=== PATIENT | male | born 1950 | race Caucasian/White ===

== ENCOUNTER 2016-09-16 18:05 | Inpatient (IN) | payer OTHER, MEDICAID ==
--- NOTE | 2016-09-16 18:19 | EDPHY ---
H & P HPI/ROS: CHIEF COMPLAINT: Abdominal pain HISTORY OF PRESENT ILLNESS: Patient is a 65-year-old male with multiple medical problems who presents to the emergency department with right mid abdominal pain since this morning. Patient has previously had bladder cancer with resection. He has urostomy in place. He has noticed increased mucosal distension at the urostomy site. He also has pain at that location. His pain is moderate to severe. He states he also has worsening shortness of breath since this morning. No cough. No fevers or chills. Patient denies chest pain. REVIEW OF SYSTEMS: My complete review of systems is negative except as mentioned in the HPI. Past Medical/Surgical History: Includes bladder cancer, status post resection, urinary tract infection, diverticulosis, hypertension, hepatic steatosis, hiatal hernia, atrial fibrillation, hydronephrosis Past surgical history: Includes nephrostomy, cystoprostatectomy with ileal conduit Social history: The patient is a [facility] resident Smoking Status: Current some day smoker Physical Exam: Vitals noted GENERAL: mild acute distress, alert. HEENT: Eyes normal to inspection, normal pharynx, no signs of dehydration. NECK: No thyromegaly, no lymphadenopathy, supple. RESPIRATORY: mild increased work of breathing. No rales, rhonchi or wheezing. CVS: Regular rate and rhythm, no rubs, murmurs, or gallops. ABDOMEN: Soft, nondistended, no organomegaly. Patient has of the right urostomy bag in place. This has yellow discharge. There is pink mucosa noted. Mild tenderness to palpation surrounding the bag. No visible cellulitis BACK: Normal to inspection, no CVA tenderness. SKIN: Normal color, no rash, warm, dry. No pallor. EXTREMITIES: No pedal edema, no calf tenderness, no Homans sign or cords, no joint swelling. NEURO/PSYCH: Alert and oriented x3, normal mood and affect, normal motor sensory exam. No obvious cranial nerve deficit. Constitutional: Initial Vital Signs Temperature (C) 36.6 C 09/16/16 18:13 Heart Rate 80 09/16/16 18:13 Respiratory Rate 16 09/16/16 18:13 Blood Pressure 117/98 H 09/16/16 18:13 O2 Sat (%) 94 09/16/16 18:13 O2 Delivery Mode Nasal Cannula O2 (L/minute) 2 Allergies/Adverse Reactions: Mauricio's Formula 44D Allergy (Uncoded 04/02/16 17:52) "throat swells up" Home Medications: Medication Instructions Recorded NK [No Known Home Meds] 09/16/16 Medical Decision Making - Diagnostics EKG Interpretation: Sinus rhythm at 81. Normal axis. Normal intervals. No ST or T-wave abnormality. Imaging Results: Imaging Impressions Abdomen CT 09/16/16 18:21 Impression: 1. Right hydronephrosis of a patient status post cystectomy and prostatectomy. A left ureteral stent is in place. 2. Herniation of loops of small bowel adjacent to the right lower quadrant ostomy. 3. Rather extensive diverticulosis without diverticulitis. 4. See above report for additional findings. Results called and discussed with HALIE OSMAN M.D. on 09/16/2016 at 20:44 Chest X-Ray 09/16/16 18:21 Impression: 1. Borderline cardiac enlargement without pulmonary edema. 2. Basilar opacities probably a combination of atelectasis and scarring. ED Course/Re-evaluation: I met EMS on arrival in took report from the office workforce planner. In the emergency department I discussed possible etiologies with the patient. Laboratory studies and CT imaging were ordered. Patient was given fentanyl 50 mcg IV and Zofran 4 mg IV. IV the patient's laboratory studies. White count was normal. He was mildly anemic with hematocrit of 36. His BUN was [address] of the abdomen pelvis: Please refer to the dictated report. The patient has a small bowel herniation through his ileostomy site. The urostomy appears to be intact. Please refer the dictated report by Dr. Obie Wilson. Chest x-ray: Bilateral basilar atelectasis and scarring. No focal infiltrates. Please refer the dictated report by Dr. Wilson. I discussed the results with the patient. I answered all his questions. Patient was also noted to have significant white cells in his urine. I am aware he has urostomy but he will be treated with Rocephin while he is being evaluated for his hernia. General surgery, Dr. Garrett was paged. Hospital service was paged. [phone]: I discussed the case with Dr. Garrett. He will evaluate the patient for the CT findings and herniation. Differential Diagnosis: My differential includes but is not limited to urostomy malfunction, small- bowel obstruction, perforation, hernia, abscess, pneumonia, pneumothorax, ACS, acute PR - Data Points Laboratory Results: Laboratory Results 09/16/16 18:15 09/16/16 18:15 09/16/16 09/16/16 09/16/16 19:30 18:15 18:15 WBC RBC Hgb Hct MCV MCH MCHC RDW Plt Count MPV Neut % (Auto) Lymph % (Auto) Merrick % (Auto) Eos % (Auto) Baso % (Auto) Nucleat RBC Rel Count Absolute Neuts (auto) Absolute Lymphs (auto) Absolute Monos (auto) Absolute Eos (auto) Absolute Basos (auto) Absolute Nucleated RBC Immature Gran % Immature Gran # PT 12.7 SEC SEC (12.0-15.0) INR 0.96 (0.83-1.16) APTT 27.6 SEC SEC (23.0-38.0) Sodium 142 mEq/L mEq/L (134-144) Potassium 4.7 mEq/L mEq/L (3.5-5.2) Chloride 117 mEq/L H mEq/L (97-110) Carbon Dioxide 24 mEq/l mEq/l (22-31) Anion Gap 1 mEq/L L mEq/L (8-16) BUN 28 mg/dL H mg/dL (7-23) Creatinine 1.1 mg/dL mg/dL (0.7-1.3) Estimated GFR > 60 Glucose 87 mg/dL mg/dL (70-100) Calcium 9.2 mg/dL mg/dL (8.5-10.4) Troponin I < 0.012 ng/mL ng/mL (0-0.034) NT-Pro-B Natriuret Pep 95 pg/mL pg/mL (0-125) Urine Color YELLOW Urine Appearance MODERATELY TURBID Urine pH 6.0 (5.0-7.5) Ur Specific [place] 1.011 (1.002-1.030) Urine Protein 1+ H (NEGATIVE) Urine Ketones NEGATIVE (NEGATIVE) Urine Blood 1+ H (NEGATIVE) Urine Nitrate POSITIVE H (NEGATIVE) Urine Bilirubin NEGATIVE (NEGATIVE) Urine Urobilinogen NEGATIVE EU EU (0.2-1.0) Ur Leukocyte Esterase 3+ H (NEGATIVE) Urine RBC 15-25 /hpf H /hpf (0-3) Urine WBC 50-182 /hpf H /hpf (0-3) Ur Epithelial Cells NONE SEEN /lpf /lpf (NONE-1+) Urine Bacteria TRACE /hpf H /hpf (NONE SEEN) Urine Glucose NEGATIVE (NEGATIVE) 09/16/16 18:15 WBC 5.93 10^3/uL 10^3/uL (3.80-9.50) RBC 3.95 10^6/uL L 10^6/uL (4.40-6.38) Hgb 11.3 g/dL L g/dL (13.7-17.5) Hct 36.8 % L % (40.0-51.0) MCV 93.2 fL fL (81.5-99.8) MCH 28.6 pg pg (27.9-34.1) MCHC 30.7 g/dL L g/dL (32.4-36.7) RDW 16.1 % H % (11.5-15.2) Plt Count 248 10^3/uL 10^3/uL (150-400) MPV 9.3 fL fL (8.7-11.7) Neut % (Auto) 62.7 % % (39.3-74.2) Lymph % (Auto) 22.6 % % (15.0-45.0) Merrick % (Auto) 10.6 % % (4.5-13.0) Eos % (Auto) 3.0 % % (0.6-7.6) Baso % (Auto) 0.8 % % (0.3-1.7) Nucleat RBC Rel Count 0.0 % % (0.0-0.2) Absolute Neuts (auto) 3.71 10^3/uL 10^3/uL (1.70-6.50) Absolute Lymphs (auto) 1.34 10^3/uL 10^3/uL (1.00-3.00) Absolute Monos (auto) 0.63 10^3/uL 10^3/uL (0.30-0.80) Absolute Eos (auto) 0.18 10^3/uL 10^3/uL (0.03-0.40) Absolute Basos (auto) 0.05 10^3/uL 10^3/uL (0.02-0.10) Absolute Nucleated RBC 0.00 10^3/uL 10^3/uL (0-0.01) Immature Gran % 0.3 % % (0.0-1.1) Immature Gran # 0.02 10^3/uL 10^3/uL (0.00-0.10) PT INR APTT Sodium Potassium Chloride Carbon Dioxide Anion Gap BUN Creatinine Estimated GFR Glucose Calcium Troponin I NT-Pro-B Natriuret Pep Urine Color Urine Appearance Urine pH Ur Specific [place] Urine Protein Urine Ketones Urine Blood Urine Nitrate Urine Bilirubin Urine Urobilinogen Ur Leukocyte Esterase Urine RBC Urine WBC Ur Epithelial Cells Urine Bacteria Urine Glucose Departure - Departure Clinical Impression: Shortness of breath Abdominal pain Qualifiers: Abdominal location: generalized Qualified Code(s): R10.84 - Generalized abdominal pain Urinary tract infection Qualifiers: Urinary tract infection type: site unspecified Hematuria presence: with hematuria Qualified Code(s): N39.0 - Urinary tract infection, site not specified ; R31.9 - Hematuria, unspecified Condition: Good Referrals: Patient,NotPresent [Unknown] - As per Instructions
[2016-09-16 18:27] LABS: % IMMATURE GRANULYOCYTES 0.3 % (0.0-1.1); ABSOLUTE IMMATURE GRANULOCYTES 0.02 10^3/uL (0.00-0.10); ADD DIFF? NO; ADD MORPH? NO; ADD SCAN? NO; ATYPICAL LYMPHOCYTE FLAG 10 (0-99); FRAGMENT RBC FLAG 0 (0-99); HEMATOCRIT 36.8 % (40.0-51.0); HEMOGLOBIN 11.3 g/dL (13.7-17.5); LEFT SHIFT FLG 0 (0-99); LIPEMIA HEMOLYSIS FLAG 80 (0-99); MEAN CELL HEMOGLOBIN 28.6 pg (27.9-34.1); MEAN CELL HEMOGLOBIN CONCENTR. 30.7 g/dL (32.4-36.7); MEAN CELL VOLUME 93.2 fL (81.5-99.8); MEAN PLATELET VOLUME 9.3 fL (8.7-11.7); PLATELET CLUMPS FLAG 20 (0-99); PLATELET COUNT 248 10^3/uL (150-400); RED BLOOD CELL COUNT 3.95 10^6/uL (4.40-6.38); RED CELL DISTRIBUTION WIDTH 16.1 % (11.5-15.2)
[2016-09-16 18:35] LABS: INR 0.96 (0.83-1.16); PROTIME(PATIENT) 12.7 SEC (12.0-15.0)
[2016-09-16 18:36] LABS: APTT 27.6 SEC (23.0-38.0)
--- NOTE | 2016-09-16 18:37 | CPEKG ---
Heart Rate: 81 RR Interval: 741 P-R Interval: 176 QRSD Interval: 102 QT Interval: 388 QTC Interval: 451 P [place]: 14 QRS [place]: -6 T Wave [place]: 3 EKG Severity - NORMAL ECG - EKG Impression: SINUS RHYTHM Electronically Signed By: Almita Ray 16-Sep-2016 21:29:03
[2016-09-16 18:47] LABS: ANION GAP 1 mEq/L (8-16); CALCIUM 9.2 mg/dL (8.5-10.4); CARBON DIOXIDE 24 mEq/l (22-31); CHLORIDE 117 mEq/L (97-110); CREATININE 1.1 mg/dL (0.7-1.3); GLOMERULAR FILTRATION RATE > 60; GLUCOSE 87 mg/dL (70-100); POTASSIUM 4.7 mEq/L (3.5-5.2); SODIUM 142 mEq/L (134-144)
[2016-09-16 18:59] LABS: TROPONIN I < 0.012 ng/mL (0-0.034)
[2016-09-16] MEDS ORDERED: IOPAMIDOL (ISOVUE-300) 100 ML BTL ONE (19:19)
[2016-09-16 20:06] LABS: COLOR YELLOW; LEUKOCYTE ESTERASE,URINE 3+ (NEGATIVE); NITRITE,URINE POSITIVE (NEGATIVE)
[2016-09-16 20:34] LABS: BACTERIA TRACE /hpf (NONE SEEN); RBC,URINE 15-25 /hpf (0-3); WBC,URINE 50-182 /hpf (0-3)
[2016-09-16] MEDS ORDERED: BUPIVACAINE 0.5% 30 ML SDV ONE (22:05)
[2016-09-16] MEDS ORDERED: BACITRACIN 50,000 UNITS/10 ML SYR IRR ONE (22:06)
[2016-09-16] MEDS ORDERED: POLYMYXIN B SULFATE 500,000 UNIT/10 ML SYR IRR ONE (22:06)
[2016-09-16] MEDS ORDERED: ONDANSETRON 4 MG/2 ML VIAL IVP PRN (22:20)
[2016-09-16] MEDS ORDERED: ONDANSETRON DISINTEGRATING 4 MG TAB PO PRN (22:20)
[2016-09-16] MEDS ORDERED: ACETAMINOPHEN 325 MG TAB PO PRN (22:20)
[2016-09-16] MEDS ORDERED: oxyCODONE IR 5 MG TAB PO PRN (22:20)
[2016-09-16 22:48] LABS: ALBUMIN 4.3 g/dL (3.5-5.0); BILIRUBIN,TOTAL 0.5 mg/dL (0.1-1.4); BILIRUBIN-CONJUGATED 0.5 mg/dL (0.0-0.5); TOTAL PROTEIN 7.8 g/dL (6.3-8.2)
[2016-09-16] MEDS ORDERED: ROCURONIUM 50 MG/5 ML VIAL ONE ×2 (22:50→22:56)
[2016-09-16] MEDS ORDERED: PROPOFOL/EMULSION 500 MG/50 ML BOTTLE IV ONE (22:50)
[2016-09-16] MEDS ORDERED: DEXAMETHASONE 4 MG/ML VIAL ONE ×2 (22:50→22:56)
[2016-09-16] MEDS ORDERED: morphINE *ANESTHESIA ONLY* 10 MG/ML VIAL ONE (22:50)
[2016-09-16] MEDS ORDERED: LIDOCAINE 2% 5 ML SDV ONE (22:50)
[2016-09-16] MEDS ORDERED: PROPOFOL/EMULSION 50 ML IV SCH (23:30)
[2016-09-16] MEDS ORDERED: fentanYL/NACL/100 ML BAG IV ONE (23:32)
--- NOTE | 2016-09-16 23:46 | GHP ---
[f rep st] PREOP HISTORY AND PHYSICAL DATE OF ADMISSION: 09/16/2016 HISTORY OF PRESENT ILLNESS: A 65-year-old male, who presents with crampy abdominal pain for 2 days. He is shown to have a parastomal hernia which is incarcerated and tender. He has a urine stoma af ter having a radical cystectomy and appears to have a parastomal incarcerated hernia. He is admitte d at this time for surgery. Risks and options have been fully discussed, and he wishes to proceed. His labs were okay. Urine shows 100 white cells. PAST MEDICAL HISTORY: Includes bladder cancer with a radical resection. He has a chronic urinary t ract infection. History of hypertension, hiatal hernia, atrial fibrillation, and hydronephrosis. Usama strauss has had nephrostomy tubes, cystoprostatectomy with ileal conduit. REVIEW OF SYSTEMS: Reveals he is a regular smoker. Denies any major cardiopulmonary symptoms or an y other major medical problems on a full complete review of systems. ALLERGIES: Vicks formula. HOME MEDICATIONS: None. PHYSICAL EXAMINATION: GENERAL: Reveals him to be an alert, reasonably comfortable male, afebrile. HEAD/NECK: Reveals no icterus or oral lesions. No adenopathy. No thyromegaly. CHEST: Clear to auscultation and percussion. CARDIAC: Reveals a regular rhythm with no murmurs. ABDOMEN: Soft, s lightly protuberant. He has a urinary stoma in the right lower quadrant with adjacent tenderness an d fullness, consistent with an incarcerated peristomal hernia. He does have bowel sounds. EXTREMIT IES: Benign with full pulses. No significant edema. NEUROLOGIC: Physiologic. SKIN: No obvious lesions. IMPRESSION: Incarcerated peristomal hernia. PLAN: Urgent surgery. Risks and options have been fully discussed, and he wishes to proceed. /[id number]/MODL
[2016-09-16] MEDS ORDERED: fentaNYL/NACL 100 ML IV SCH (23:58)
--- NOTE | 2016-09-17 00:06 | GHP ---
[f rep st] HISTORY AND PHYSICAL DATE OF ADMISSION: 09/16/2016 CHIEF COMPLAINT: Abdominal pain. HISTORY OF PRESENT ILLNESS: The patient is a 65-year-old male with a history of bladder cancer, status post resection with an ileal conduit, who presents to the emergency department with right upper quadrant and right flank pain. His symptoms started earlier this morning. He notes increasing distention of his abdomen. No nausea or vomiting. He denies fevers or chills. He has had normal urine output through his ileal conduit, though some debris has been noted. He has no chest pain. He does feel a bit short of breath as this increases his abdominal discomfort. No changes in his bowel function. In the emergency department, patient underwent abdominal CT scan which showed right-sided hydronephrosis as well as herniation of loops of small bowel into the right lower quadrant ostomy. Surgical consult is obtained and he is admitted to the hospital for further management. PAST MEDICAL HISTORY: 1. Hypertension. 2. Atrial fibrillation. 3. History of bladder cancer. 4. Diverticulosis. SURGICAL HISTORY: 1. Cystectomy and prostatectomy with bilateral lymph node dissection and ileal conduit in December 2015, by Dr. Silvano Mercedes. 2. Inguinal hernia repair. 3. TURBT. MEDICATIONS: Please see [employer] for complete updated outpatient medication list. ALLERGIES: No known drug allergies. FAMILY HISTORY: Reviewed and not pertinent. SOCIAL HISTORY: The patient lives at [facility]. He is a former smoker. He denies alcohol use. He reports a history of smoking methamphetamine, but has not used any drugs for at least 2 years. REVIEW OF SYSTEMS: A 10-point Review of Systems was performed and was negative except as per HPI. OBJECTIVE: VITAL SIGNS: Temperature is 36.6, blood pressure 117/98, heart rate 80, respiratory rate 16, he is 94% on room air. GENERAL: The patient is awake, alert, oriented, in no acute distress. HEENT: Head is atraumatic, normocephalic. Pupils equal, round, and reactive to light. Extraocular motions are intact. Oropharynx is clear. Mucous membranes are moist. He has poor dentition. NECK: Supple. There is no JVD. HEART: Regular rate and rhythm without murmur. LUNGS: Reveal decreased breath sounds with mild atelectatic crackles at the bases. Otherwise, clear to auscultation. ABDOMEN: Soft, mildly distended. His ileal conduit reveals clear urine in the bag. There is periostomy distention with tenderness to palpation. There is no rebound, rigidity, guarding, or peritoneal signs. Normoactive bowel tones are detected. EXTREMITIES: Without cyanosis, clubbing, or edema. NEUROLOGIC: Grossly nonfocal. LABORATORY DATA: CBC reveals normal white blood cell count, hemoglobin of 11.3 , platelets are normal. INR is 0.96. Basic metabolic panel is remarkable for chloride of 117, BUN 28, creatinine 1.1. LFTs are pending. Troponin is negative. Urinalysis shows 1+ blood, positive nitrites, 50-100 white cells. This was drawn from his ostomy bag. Abdomen and pelvis CT, September 16, 2016, shows moderate right-sided hydronephrosis, status post cystectomy and prostatectomy. A left ureteral stent is in place. There is herniation of loops of small bowel adjacent to the right lower quadrant ostomy along with extensive diverticulosis without evidence of diverticulitis. Chest x-ray, personally reviewed and interpreted, there is borderline cardiomegaly, no itz pulmonary edema or obvious infiltrates. Bibasilar opacities likely represent atelectasis. Decreased lung volumes. ASSESSMENT AND PLAN: The patient is a 65-year-old male with a history of hypertension, atrial fibrillation, and prior bladder cancer, status post resection with ileal conduit, who presents to the emergency department with abdominal pain. He is admitted to the hospital for further evaluation. 1. Right lower quadrant abdominal hernia associated with an ostomy. There is no evidence of incarceration by CT scan and he is afebrile. This likely needs to be repaired. The case was reviewed with Dr. Manjeet Garrett, general surgery, who will consult. He will be admitted for pain control and likely surgical intervention. Will make him n.p.o. at midnight. We will closely monitor his vital signs, and discuss with Surgery should he develop any fevers or acute status changes. 2. Right-sided hydronephrosis. This is new. His right ureter drains into the ileal conduit. Thus, the hernia may be contributing to an obstructive process. As above, he is afebrile with normal wbc's. He does have an abnormal urinalysis, though this was drawn from his ostomy bag, so I would expect this to look abnormal. He received a dose of IV ceftriaxone in the ED. Will defer further antibiotics for now, though should he have fevers or change in clinical status, would resume antibiotics. Urology has been consulted and will see the patient in the morning. His hydro may resolve once he has his hernia repaired. 3. Hypertension. The patient is normotensive on arrival. His medication reconciliation is pending. 4. History of atrial fibrillation. I have ordered an EKG to confirm his rhythm which sounded regular by auscultation on exam. As above, I am awaiting medication reconciliation, though it does not appear he is on any rate control agents or anticoagulation, which we can revisit with him postoperatively. 5. Deep venous thrombosis prophylaxis. We will place SCDs for now. Will defer Lovenox in the event he goes to the operating room tomorrow. We can start this at an appropriate time postoperatively. 6. Code status. Patient is full code. 7. Disposition. Patient is admitted as inpatient status, as I expect he will likely require greater than 48 hours hospitalization for ongoing management of his abdominal hernia and hydronephrosis. /[id number]/MODL MTDD
[2016-09-17] MEDS ORDERED: ROCURONIUM 50 MG/5 ML VIAL ONE (01:39)
[2016-09-17] MEDS ORDERED: morphINE *ANESTHESIA ONLY* 10 MG/ML VIAL ONE (01:54)
[2016-09-17] MEDS ORDERED: CISATRACURIUM BESYLATE 20 MG/10 ML VIAL IV ONE (02:05)
[2016-09-17] MEDS ORDERED: epHEDrine SULFATE 10 MG/ML SYR ONE (02:22)
[2016-09-17] MEDS ORDERED: ONDANSETRON 4 MG/2 ML VIAL ONE (02:33)
[2016-09-17] MEDS ORDERED: GLYCOPYRROLATE 0.2 MG/1 ML VIAL ONE ×4 (02:41→03:04)
[2016-09-17] MEDS ORDERED: NEOSTIGMINE METHYLSULFATE 5 MG/5 ML SYR ONE (02:41)
[2016-09-17] MEDS ORDERED: ONDANSETRON 4 MG/2 ML VIAL IVP PRN (03:10)
[2016-09-17] MEDS ORDERED: OXYCODONE/APAP 5/325 TAB PO PRN (03:10)
[2016-09-17] MEDS ORDERED: ACETAMINOPHEN 325 MG TAB PO PRN (03:12)
[2016-09-17] MEDS ORDERED: LOPERAMIDE HCL 2 MG CAP PO PRN (03:12)
[2016-09-17] MEDS ORDERED: D5W 1/2 NS W/ 20 KCl/L 1,000 ML IV SCH (03:15)
[2016-09-17] MEDS ORDERED: SUGAMMADEX SODIUM 200 MG/2 ML VIAL IVP ONE (03:16)
--- NOTE | 2016-09-17 03:17 | POSTOPPROG ---
Post Op Note Date of Operation: 09/17/16 Surgeon: Jimmy Garrett Anesthesiologist: ALAS Anesthesia: GET(General Endotracheal) Pre-op Diagnosis: INCARCERATED PARASTOMAL HERNIA Post-op Diagnosis: SAME Indication: PAIN Procedure: OPEN REPAIR INCARCERATED PARASTOMAL HERNIA Findings: VIABLE BOWELL/ 5 CM DEFECT Inf/Abcess present in the surg proc area at time of surgery?: No Depth: Organ Space EBL: Minimal Complications: 0 Specimen(s): NONE
[2016-09-17] MEDS: HYDROmorphONE/DILAUDID 1 MG/ML SYR IVP PRN ×2 (05:05→17:17)
[2016-09-17 05:22] LABS: % IMMATURE GRANULYOCYTES 0.5 % (0.0-1.1); ABSOLUTE IMMATURE GRANULOCYTES 0.04 10^3/uL (0.00-0.10); ADD DIFF? NO; ADD MORPH? NO; ADD SCAN? NO; ATYPICAL LYMPHOCYTE FLAG 0 (0-99); FRAGMENT RBC FLAG 0 (0-99); HEMATOCRIT 38.4 % (40.0-51.0); HEMOGLOBIN 11.5 g/dL (13.7-17.5); LEFT SHIFT FLG 0 (0-99); LIPEMIA HEMOLYSIS FLAG 70 (0-99); MEAN CELL HEMOGLOBIN 28.3 pg (27.9-34.1); MEAN CELL HEMOGLOBIN CONCENTR. 29.9 g/dL (32.4-36.7); MEAN CELL VOLUME 94.6 fL (81.5-99.8); MEAN PLATELET VOLUME 9.3 fL (8.7-11.7); PLATELET CLUMPS FLAG 10 (0-99); PLATELET COUNT 233 10^3/uL (150-400); RED BLOOD CELL COUNT 4.06 10^6/uL (4.40-6.38); RED CELL DISTRIBUTION WIDTH 16.1 % (11.5-15.2)
[2016-09-17] MEDS ORDERED: LIDOCAINE/PRILOCAINE 1 EACH CRTUBE TP ONE (05:45)
[2016-09-17 05:46] LABS: ALANINE AMINOTRANSFERASE 28 IU/L (21-72); ALKALINE PHOSPHATASE 97 IU/L (38-126); ANION GAP 9 mEq/L (8-16); ASPARTATE AMINOTRANSFERASE 21 IU/L (17-59); BILIRUBIN,TOTAL 0.5 mg/dL (0.1-1.4); CALCIUM 9.1 mg/dL (8.5-10.4); CARBON DIOXIDE 23 mEq/l (22-31); CHLORIDE 109 mEq/L (97-110); CREATININE 1.2 mg/dL (0.7-1.3); GLOMERULAR FILTRATION RATE > 60; GLUCOSE 121 mg/dL (70-100); POTASSIUM 5.3 mEq/L (3.5-5.2); SODIUM 141 mEq/L (134-144); TOTAL PROTEIN 7.8 g/dL (6.3-8.2)
--- NOTE | 2016-09-17 07:47 | HOSPPROG ---
Hospitalist Progress Note Assessment/Plan: 65M [address] [facility], [facility] bladder CA s/p resection and ileal conduit, htn, PAF, admitted with RUQ pain and R flank pain starting 6/, day of admit. Noted increasing abdominal distention with normal UOP through ileal conduit. CT abdomen showed R sided hydronephrosis as well as herniation of loops of small bowel int RLQ ostomy. Pt new to me. Chart reviewed. ECG personally interpreted shows SR. #. RLQ incarcerated parastomal hernia: POD #1 for open repair with Dr. Garrett #. R-sided hydronephrosis: may be related to hernia urology has been consulted #. htn: not on any outpatient meds for this per med rec appears acceptable now/ will monitor #. PAF: currently in SR by 12 lead ECG [id number] appears to be 2 will start ASA when deemed safe from post-op perspective #. DVT ppx: in SCDs will need SC Enox when deemed appropriate by gen surg #. Los: unclear at this point Await urology consult Advance diet as per gen surg Subjective: Reports abdominal pain present. Getting kidney U/S presently. Objective: Vital Signs Temp Pulse Resp BP Pulse Ox 97.9 F 88 17 144/86 H 93 09/17/16 06:30 09/17/16 06:30 09/17/16 06:30 09/17/16 06:30 09/17/16 06:30 Laboratory Results 09/17/16 05:06 09/17/16 05:06 09/16/16 09/17/16 09/18/16 05:59 05:59 05:59 Intake Total 1060 Output Total 680 Balance 380 PT 12.7 SEC (12.0-15.0) 09/16/16 18:15 INR 0.96 (0.83-1.16) 09/16/16 18:15 - Physical Exam Constitutional: no apparent distress, appears nourished Ears, Nose, Mouth, Throat: poor dentition Cardiovascular: regular rate and rhythym, no murmur, rub, or gallop Respiratory: no respiratory distress Gastrointestinal: distension, other (+BS ) Genitourinary: other (ostomy bag with urine that is cloudy but without blood) Skin: warm, normal color Neurologic: AAOx3 Psychiatric: interacting appropriately ICD10 Worksheet Patient Problems: Problems Problem Status Onset Edema Acute Bladder cancer Acute Gross hematuria Acute Hydronephrosis, left Acute Abdominal pain Acute Shortness of breath Acute Urinary tract infection Acute
--- NOTE | 2016-09-17 08:55 | CPEKG ---
Heart Rate: 86 RR Interval: 698 P-R Interval: 172 QRSD Interval: 102 QT Interval: 376 QTC Interval: 450 P [place]: 14 QRS [place]: -8 T Wave [place]: 0 EKG Severity - NORMAL ECG - EKG Impression: SINUS RHYTHM Electronically Signed By: Robert Escobar 17-Sep-2016 11:05:41
[2016-09-17] MEDS: HYDROCODONE/APAP 5/325 TAB PO PRN ×4 (09:33→23:06)
--- NOTE | 2016-09-17 10:22 | SOAPPROG ---
SOAP Progress Note Assessment/Plan: Assessment: wound ok/ uo ok/ afebrile/ abd soft/ vs stable Plan:advance diet 09/17/16 10:22 Objective: Vital Signs Temp Pulse Resp BP Pulse Ox 36.6 C 88 16 136/92 H 93 09/17/16 08:50 09/17/16 08:50 09/17/16 08:50 09/17/16 08:50 09/17/16 08:50 Laboratory Results 09/17/16 05:06 09/17/16 05:06 09/16/16 09/17/16 09/18/16 05:59 05:59 05:59 Intake Total 1060 Output Total 680 Balance 380 PT 12.7 SEC (12.0-15.0) 09/16/16 18:15 INR 0.96 (0.83-1.16) 09/16/16 18:15 ICD10 Worksheet Patient Problems: Problems Problem Status Onset Abdominal pain Acute Shortness of breath Acute Urinary tract infection Acute Bladder cancer Acute Edema Acute Gross hematuria Acute Hydronephrosis, left Acute
--- NOTE | 2016-09-17 11:01 | SOAPPROG ---
SOAP Progress Note Assessment/Plan: Assessment: Hydronephrosis, left Acute will remove stent . Right side hydronephrosis noted and normal creatinine. Consider Nuclear renogram with lasix to assess obstruction or an ileal conduit loopogram to assess reflux for rt hydro Plan: as noted 09/17/16 11:14 Subjective: doing well, is well informed Objective: Vital Signs Temp Pulse Resp BP Pulse Ox 36.6 C 88 16 136/92 H 93 09/17/16 08:50 09/17/16 08:50 09/17/16 08:50 09/17/16 08:50 09/17/16 08:50 Laboratory Results 09/17/16 05:06 09/17/16 05:06 09/16/16 09/17/16 09/18/16 05:59 05:59 05:59 Intake Total 1060 Output Total 680 Balance 380 PT 12.7 SEC (12.0-15.0) 09/16/16 18:15 INR 0.96 (0.83-1.16) 09/16/16 18:15 Physical Exam - Physical Exam General Appearance: alert Neck: supple Respiratory: No respiratory distress Cardiac/Chest: regular rate, rhythm Abdomen: soft (stoma and stent removed in tact) Back: No CVA tenderness Extremities: non-tender, No calf tenderness, No Joaquina's sign Neuro/Psych: oriented x 3 ICD10 Worksheet Patient Problems: Problems Problem Status Onset Abdominal pain Acute Shortness of breath Acute Urinary tract infection Acute Bladder cancer Acute Edema Acute Gross hematuria Acute Hydronephrosis, left Acute
[2016-09-18] MEDS: HYDROCODONE/APAP 5/325 TAB PO PRN ×3 (02:23→19:54)
[2016-09-18] MEDS: HYDROmorphONE/DILAUDID 1 MG/ML SYR IVP PRN ×3 (03:54→17:09)
[2016-09-18] MEDS ORDERED: FUROSEMIDE 40 MG/4 ML VIAL ONE (10:08)
--- NOTE | 2016-09-18 13:41 | HOSPPROG ---
Hospitalist Progress Note Assessment/Plan: 65M resident at [facility], [facility] bladder CA s/p resection and ileal conduit, htn, PAF, admitted with RUQ pain and R flank pain starting 09/16, day of admit. Noted increasing abdominal distention with normal UOP through ileal conduit. CT abdomen showed R sided hydronephrosis as well as herniation of loops of small bowel int RLQ ostomy. Pt new to me. Chart reviewed. ECG personally interpreted shows SR. #. RLQ incarcerated parastomal hernia: POD #2 for open repair with Dr. Garrett #. R-sided hydronephrosis: may be related to hernia urology consult was reviewed and appreciated await mag 3 renal scan #. elevated blood pressure without history of htn (resolved) appears acceptable now/ will monitor #. PAF: currently in SR by 12 lead ECG [id number] appears to be 2 Start ASA #. DVT ppx: in SCDs -Dr Garrett is agreeable to start LMWH as well as ASA #. Los: unclear at this point Advance diet as per gen surg Subjective: contineus to have severe pain over incision site. no other acute complaints Objective: Vital Signs Temp Pulse Resp BP Pulse Ox 36.4 C 70 18 114/68 95 09/18/16 07:35 09/18/16 07:35 09/18/16 07:35 09/18/16 07:35 09/18/16 07:35 Laboratory Results 09/17/16 05:06 09/17/16 05:06 09/17/16 09/18/16 09/19/16 05:59 05:59 05:59 Intake Total 1060 1800 750 Output Total 680 1000 1020 Balance 380 800 -270 PT 12.7 SEC (12.0-15.0) 09/16/16 18:15 INR 0.96 (0.83-1.16) 09/16/16 18:15 - Physical Exam Constitutional: no apparent distress, appears nourished, not in pain Cardiovascular: regular rate and rhythym, no murmur, rub, or gallop Respiratory: no respiratory distress, no rales or rhonchi, clear to auscultation ICD10 Worksheet Patient Problems: Problems Problem Status Onset Edema Acute Bladder cancer Acute Gross hematuria Acute Hydronephrosis, left Acute Abdominal pain Acute Shortness of breath Acute Urinary tract infection Acute
[2016-09-18] MEDS: ASPIRIN EC 81 MG TAB PO SCH (15:34)
[2016-09-18] MEDS: ENOXAPARIN 40 MG/0.4 ML SYR SC SCH (15:35)
--- NOTE | 2016-09-18 22:35 | SOAPPROG ---
SOAP Progress Note Assessment/Plan: Assessment: wound ok/ uo ok/ afebrile/ abd soft/ vs stable Plan:advance diet 09/17/16 10:22 09/18/16 22:33 SEEN EARLIER THIS AM/ WOUND OK/ AFEBRILE/ CO BLOATING/ ABD SOFT, MILDLY DISTENDED WITH BS/ STOMA PINK PROBABLE CONSTIPATION/ CHECK 2-WAY/ CATHARSIS Objective: Vital Signs Temp Pulse Resp BP Pulse Ox 37.1 C 81 18 128/95 H 95 09/18/16 20:00 09/18/16 20:00 09/18/16 20:00 09/18/16 20:00 09/18/16 20:00 Laboratory Results 09/17/16 05:06 09/17/16 05:06 09/17/16 09/18/16 09/19/16 05:59 05:59 05:59 Intake Total 1060 1800 1500 Output Total 680 1000 2420 Balance 380 800 -920 PT 12.7 SEC (12.0-15.0) 09/16/16 18:15 INR 0.96 (0.83-1.16) 09/16/16 18:15 ICD10 Worksheet Patient Problems: Problems Problem Status Onset Abdominal pain Acute Shortness of breath Acute Urinary tract infection Acute Bladder cancer Acute Edema Acute Gross hematuria Acute Hydronephrosis, left Acute
[2016-09-19] MEDS: HYDROCODONE/APAP 5/325 TAB PO PRN ×5 (00:20→20:44)
[2016-09-19] MEDS: HYDROmorphONE/DILAUDID 1 MG/ML SYR IVP PRN ×2 (02:35→18:23)
[2016-09-19 05:24] LABS: % IMMATURE GRANULYOCYTES 0.6 % (0.0-1.1); ABSOLUTE IMMATURE GRANULOCYTES 0.04 10^3/uL (0.00-0.10); ADD DIFF? NO; ADD MORPH? NO; ADD SCAN? NO; ATYPICAL LYMPHOCYTE FLAG 10 (0-99); FRAGMENT RBC FLAG 0 (0-99); HEMATOCRIT 36.7 % (40.0-51.0); HEMOGLOBIN 11.1 g/dL (13.7-17.5); LEFT SHIFT FLG 0 (0-99); LIPEMIA HEMOLYSIS FLAG 80 (0-99); MEAN CELL HEMOGLOBIN 28.5 pg (27.9-34.1); MEAN CELL HEMOGLOBIN CONCENTR. 30.2 g/dL (32.4-36.7); MEAN CELL VOLUME 94.3 fL (81.5-99.8); MEAN PLATELET VOLUME 9.4 fL (8.7-11.7); PLATELET CLUMPS FLAG 0 (0-99); PLATELET COUNT 223 10^3/uL (150-400); RED BLOOD CELL COUNT 3.89 10^6/uL (4.40-6.38); RED CELL DISTRIBUTION WIDTH 16.1 % (11.5-15.2)
[2016-09-19 05:53] LABS: ANION GAP 7 mEq/L (8-16); CALCIUM 8.9 mg/dL (8.5-10.4); CARBON DIOXIDE 28 mEq/l (22-31); CHLORIDE 106 mEq/L (97-110); GLOMERULAR FILTRATION RATE > 60; GLUCOSE 94 mg/dL (70-100); POTASSIUM 4.6 mEq/L (3.5-5.2); SODIUM 141 mEq/L (134-144)
[2016-09-19] MEDS ORDERED: MAGNESIUM HYDROXIDE 30 ML UDCUP PO PRN (08:47)
[2016-09-19] MEDS ORDERED: LACTULOSE 20 GM/30 ML UDCUP PO PRN (08:47)
[2016-09-19] MEDS ORDERED: POLYETHYLENE GLYCOL 3350 17 GM PKT PO PRN (08:47)
[2016-09-19] MEDS ORDERED: BISACODYL 10 MG SUPP PR PRN (08:47)
[2016-09-19] MEDS: ENOXAPARIN 40 MG/0.4 ML SYR SC SCH (08:48)
[2016-09-19] MEDS: ASPIRIN EC 81 MG TAB PO SCH (08:49)
[2016-09-19] MEDS: SENNOSIDES/DOCUSATE SODIUM TAB PO SCH ×2 (11:59→20:44)
--- NOTE | 2016-09-19 13:48 | SOAPPROG ---
SOAP Progress Note Assessment/Plan: Assessment/Plan: 65 Y M s/p repair of incarcerated ileal conduit parastomal hernia. Continue OOB, cathartics, routine post op care. S: c/o incisional pain. +BM this am. Doesn't want to be sitting up in chair anymore. Says he hasn't walked much. O: alert, nad mmm, no jaundice no wob abd softly distended +BS Wound c/d/i, no erythema. Light clear yellow urine in bag. 09/19/16 13:44 Objective: Vital Signs Temp Pulse Resp BP Pulse Ox 36.8 C 78 16 98/68 L 96 09/19/16 09:37 09/19/16 09:37 09/19/16 09:37 09/19/16 09:37 09/19/16 09:37 Laboratory Results 09/19/16 05:15 09/19/16 05:15 09/18/16 09/19/16 09/20/16 05:59 05:59 05:59 Intake Total 1800 1980 Output Total 1000 3490 Balance 800 -1510 PT 12.7 SEC (12.0-15.0) 09/16/16 18:15 INR 0.96 (0.83-1.16) 09/16/16 18:15 ICD10 Worksheet Patient Problems: Problems Problem Status Onset Abdominal pain Acute Shortness of breath Acute Urinary tract infection Acute Bladder cancer Acute Edema Acute Gross hematuria Acute Hydronephrosis, left Acute
--- NOTE | 2016-09-19 16:26 | HOSPPROG ---
Hospitalist Progress Note Assessment/Plan: #Abd pain: post-op. 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 Cont OOB #MRSA/Aerococcus in urine: suspect colonization. Afebrile without leukocytosis. Repeat UA #Right-sided hydronephritis: discuss Mag-3 scan with Urology #h/o bladder cancer: s/p cystoprostatectomy #PAF: not on rate-controlling meds. Started ASA 81mg #Deconditioning: walker at baseline. Cont PT/OT #DVT ppx: Lovenox #Disp: cont inpt admission with pain control, PT, repeat UA Subjective: upset this morning bc staff would not change out ostomy bag Objective: Vital Signs Temp Pulse Resp BP Pulse Ox 36.8 C 78 16 98/68 L 96 09/19/16 09:37 09/19/16 09:37 09/19/16 09:37 09/19/16 09:37 09/19/16 09:37 Laboratory Results 09/19/16 05:15 09/19/16 05:15 09/18/16 09/19/16 09/20/16 05:59 05:59 05:59 Intake Total 1800 1980 Output Total 1000 3490 Balance 800 -1510 PT 12.7 SEC (12.0-15.0) 09/16/16 18:15 INR 0.96 (0.83-1.16) 09/16/16 18:15 - Physical Exam Constitutional: chronically ill appearing, uncomfortable Eyes: PERRL Ears, Nose, Mouth, Throat: moist mucous membranes, hearing normal Cardiovascular: regular rate and rhythym Respiratory: no respiratory distress Gastrointestinal: normoactive bowel sounds, soft, non-tender abdomen Genitourinary: other (surgical incisiopn C/D/I. Urostomy with clear yellow urine ) Skin: warm Musculoskeletal: full muscle strength Neurologic: AAOx3 Psychiatric: interacting appropriately ICD10 Worksheet Patient Problems: Problems Problem Status Onset Edema Acute Bladder cancer Acute Gross hematuria Acute Hydronephrosis, left Acute Abdominal pain Acute Shortness of breath Acute Urinary tract infection Acute
[2016-09-19 16:57] LABS: COLOR YELLOW; LEUKOCYTE ESTERASE,URINE 2+ (NEGATIVE); NITRITE,URINE POSITIVE (NEGATIVE)
[2016-09-19 17:12] LABS: BACTERIA 1+ /hpf (NONE SEEN); MUCUS TRACE /lpf (NONE-1+); RBC,URINE 25-50 /hpf (0-3); WBC,URINE 50-182 /hpf (0-3)
[2016-09-19 17:14] LABS: YEAST PRESENT /hpf (NONE SEEN)
[2016-09-20] MEDS: HYDROCODONE/APAP 5/325 TAB PO PRN ×4 (03:14→21:25)
[2016-09-20 05:40] LABS: % IMMATURE GRANULYOCYTES 0.4 % (0.0-1.1); ABSOLUTE IMMATURE GRANULOCYTES 0.03 10^3/uL (0.00-0.10); ADD DIFF? NO; ADD MORPH? NO; ADD SCAN? NO; ATYPICAL LYMPHOCYTE FLAG 10 (0-99); FRAGMENT RBC FLAG 0 (0-99); HEMATOCRIT 38.2 % (40.0-51.0); HEMOGLOBIN 11.7 g/dL (13.7-17.5); LEFT SHIFT FLG 0 (0-99); LIPEMIA HEMOLYSIS FLAG 80 (0-99); MEAN CELL HEMOGLOBIN 28.5 pg (27.9-34.1); MEAN CELL HEMOGLOBIN CONCENTR. 30.6 g/dL (32.4-36.7); MEAN CELL VOLUME 93.2 fL (81.5-99.8); MEAN PLATELET VOLUME 9.2 fL (8.7-11.7); PLATELET CLUMPS FLAG 0 (0-99); PLATELET COUNT 245 10^3/uL (150-400); RED CELL DISTRIBUTION WIDTH 16.3 % (11.5-15.2)
[2016-09-20 06:20] LABS: ANION GAP 10 mEq/L (8-16); CALCIUM 9.2 mg/dL (8.5-10.4); CARBON DIOXIDE 28 mEq/l (22-31); CHLORIDE 106 mEq/L (97-110); CREATININE 0.9 mg/dL (0.7-1.3); GLOMERULAR FILTRATION RATE > 60; GLUCOSE 99 mg/dL (70-100); POTASSIUM 4.8 mEq/L (3.5-5.2); SODIUM 144 mEq/L (134-144)
[2016-09-20] MEDS: SENNOSIDES/DOCUSATE SODIUM TAB PO SCH ×2 (09:16→21:26)
[2016-09-20] MEDS: ASPIRIN EC 81 MG TAB PO SCH (09:16)
[2016-09-20] MEDS: ENOXAPARIN 40 MG/0.4 ML SYR SC SCH (09:16)
--- NOTE | 2016-09-20 10:03 | HOSPPROG ---
Hospitalist Progress Note Assessment/Plan: #Abd pain: post-op. 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 Cont OOB #MRSA/Aerococcus in urine: suspect colonization. Afebrile without leukocytosis. No signs of bacteremia. No treatment warranted #Right-sided hydronephritis: call out to Urology to discuss renogram #h/o bladder cancer: s/p cystoprostatectomy #PAF: not on rate-controlling meds. Started ASA 81mg #Deconditioning: walker at baseline. Emphasized that he needs to be out of bed walking the unit #DVT ppx: Lovenox #Disp: cont inpt admission with pain control, PT, repeat UA Subjective: less pain today. Walked the unit once Objective: Vital Signs Temp Pulse Resp BP Pulse Ox 36.8 C 85 20 91/83 H 91 L 09/20/16 08:15 09/20/16 08:15 09/20/16 08:15 09/20/16 08:15 09/20/16 08:15 Microbiology 09/17/16 Unknown Urine Culture - Final Urine,Clean Catch MRSA Aerococcus Urinae Two [place] Types Laboratory Results 09/20/16 05:30 09/20/16 05:30 09/19/16 09/20/16 09/21/16 05:59 05:59 05:59 Intake Total 1979 2130 Output Total 3490 2070 300 Balance -1510 60 -300 PT 12.7 SEC (12.0-15.0) 09/16/16 18:15 INR 0.96 (0.83-1.16) 09/16/16 18:15 - Physical Exam Eyes: PERRL Ears, Nose, Mouth, Throat: moist mucous membranes Cardiovascular: regular rate and rhythym Respiratory: no respiratory distress Gastrointestinal: normoactive bowel sounds, other (abd surgical incision, C/D/I) Genitourinary: other (osotomy with pink tissue) Skin: warm Musculoskeletal: full muscle strength Neurologic: CN II-XII Intact Psychiatric: flat affect ICD10 Worksheet Patient Problems: Problems Problem Status Onset Abdominal pain Acute MRSA (methicillin resistant Staphylococcus aureus) Acute ~09/17/16 Shortness of breath Acute Urinary tract infection Acute Bladder cancer Acute Edema Acute Gross hematuria Acute Hydronephrosis, left Acute
--- NOTE | 2016-09-20 12:14 | SOAPPROG ---
LEONILA Progress Note Assessment/Plan: Assessment/Plan: 65 Y M s/p repair of incarcerated ileal conduit parastomal hernia. Still with local pain complaints. Wound is healing well without signs of infection or recurrent hernia. Pain seems to be normal expected postoperative pain. I explained that I'd like to get in under control well enough that he can be mobile. He says he walked in the hallway yesterday. I think he is healing well. Urology may need to interpret renal study. Will continue to follow, but will also put orders in d/c plan in case d/c is impending--defer to medicine. S: c/o incisional pain. +BM last evening. O: alert, nad mmm, no jaundice no wob abd softly distended +BS Wound c/d/i, no erythema. Light clear yellow urine in bag. 09/20/16 12:12 Objective: Vital Signs Temp Pulse Resp BP Pulse Ox 36.8 C 85 20 91/83 H 91 L 09/20/16 08:15 09/20/16 08:15 09/20/16 08:15 09/20/16 08:15 09/20/16 08:15 Microbiology 09/17/16 Unknown Urine Culture - Final Urine,Clean Catch MRSA Aerococcus Urinae Two [place] Types Laboratory Results 09/20/16 05:30 09/20/16 05:30 09/19/16 09/20/16 09/21/16 05:59 05:59 05:59 Intake Total 1980 2130 Output Total 3490 2070 500 Balance -1510 60 -500 PT 12.7 SEC (12.0-15.0) 09/16/16 18:15 INR 0.96 (0.83-1.16) 09/16/16 18:15 ICD10 Worksheet Patient Problems: Problems Problem Status Onset Abdominal pain Acute MRSA (methicillin resistant Staphylococcus aureus) Acute ~09/17/16 Shortness of breath Acute Urinary tract infection Acute Bladder cancer Acute Edema Acute Gross hematuria Acute Hydronephrosis, left Acute
[2016-09-20] MEDS: HYDROmorphONE/DILAUDID 1 MG/ML SYR IVP PRN (12:32)
[2016-09-20 12:54] LABS: COLOR YELLOW; LEUKOCYTE ESTERASE,URINE 2+ (NEGATIVE); NITRITE,URINE POSITIVE (NEGATIVE)
[2016-09-20 13:10] LABS: BACTERIA 1+ /hpf (NONE SEEN); MUCUS TRACE /lpf (NONE-1+); WBC,URINE 50-182 /hpf (0-3)
[2016-09-21] MEDS: HYDROCODONE/APAP 5/325 TAB PO PRN ×4 (00:49→18:20)
[2016-09-21 05:54] LABS: ANION GAP 11 mEq/L (8-16); CARBON DIOXIDE 25 mEq/l (22-31); CHLORIDE 105 mEq/L (97-110); GLOMERULAR FILTRATION RATE > 60; GLUCOSE 98 mg/dL (70-100); POTASSIUM 4.7 mEq/L (3.5-5.2); SODIUM 141 mEq/L (134-144)
[2016-09-21] MEDS: ASPIRIN EC 81 MG TAB PO SCH (08:56)
[2016-09-21] MEDS: SENNOSIDES/DOCUSATE SODIUM TAB PO SCH ×2 (08:57→20:24)
[2016-09-21] MEDS: ENOXAPARIN 40 MG/0.4 ML SYR SC SCH (08:58)
--- NOTE | 2016-09-21 09:13 | SOAPPROG ---
SOAP Progress Note Assessment/Plan: Assessment: 65yo male s/p repair of incarcerated ileal conduit parastomal hernia tolerating diet, still having pain immediately around incision right abdomen, ambulated in [place] last night PE awake, comfortable abdomen incision clean/dry, conduit in place, abdomen soft nontender to palpation Plan: ok to d/c from surgical perspective, as an aside lives at [facility] saw pt with Dr Garrett 09/21/16 09:11 Objective: Vital Signs Temp Pulse Resp BP Pulse Ox 36.7 C 79 18 120/68 93 09/21/16 08:28 09/21/16 08:28 09/21/16 08:28 09/21/16 08:28 09/21/16 08:28 Microbiology 09/17/16 Unknown Urine Culture - Final Urine,Clean Catch MRSA Aerococcus Urinae Two [place] Types Laboratory Results 09/20/16 05:30 09/21/16 05:35 09/20/16 09/21/16 09/22/16 05:59 05:59 05:59 Intake Total 2130 1999 Output Total 2070 1450 200 Balance 60 550 -200 PT 12.7 SEC (12.0-15.0) 09/16/16 18:15 INR 0.96 (0.83-1.16) 09/16/16 18:15 ICD10 Worksheet Patient Problems: Problems Problem Status Onset Abdominal pain Acute MRSA (methicillin resistant Staphylococcus aureus) Acute ~09/17/16 Shortness of breath Acute Urinary tract infection Acute Bladder cancer Acute Edema Acute Gross hematuria Acute Hydronephrosis, left Acute
--- NOTE | 2016-09-21 12:07 | PDIAF ---
- Diagnosis Diagnosis: parastomal hernia, s/p repair Code Status: Full Code - Medication Management Discharge Medications: Medications to Continue on Transfer Acetaminophen [Tylenol 325mg (*)] 650 mg PO Q6 PRN 09/16/16 [Last Taken Unknown] Hydrocodone/Acetaminophen [[place] 5/325 (*)] 1 - 2 tab PO Q4H PRN 09/16/16 [Last Taken Unknown] Loperamide HCl [Loperamide] 2 mg PO DAILY PRN 09/16/16 [Last Taken Unknown] Doxycycline Calcium [Vibramycin Oral Susp] 50 mg PO DAILY #1 ml 09/20/16 [Last Taken Unknown] Discharge Medications: Refer to the Discharge Home Medication list for PRN reason. - Orders Services needed: Registered Nurse, Certified Contract Lead, Master Welfare Supervisor , Physical Therapy Diet Recommendation: no restrictions on diet Diet Texture: Regular Texture Diet - Follow Up Care Current Providers and Referrals: Patient,NotPresent [Unknown] - As per Instructions Silvano Mercedes MD [Medical Doctor] - follow up in 2 weeks
--- NOTE | 2016-09-21 12:09 | HOSPPROG ---
Hospitalist Progress Note Assessment/Plan: #Abd pain: post-op. 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 Healing well. Cleared from surgery for DC #MRSA/Aerococcus in urine: suspect colonization. Afebrile without leukocytosis. No signs of bacteremia. No treatment warranted #Right-sided hydronephritis: call out to Urology to discuss renogram. FU with them outpatient #h/o bladder cancer: s/p cystoprostatectomy #PAF: not on rate-controlling meds. Started ASA 81mg #Deconditioning: walker at baseline. Emphasized that he needs to be out of bed walking the unit #DVT ppx: Lovenox #Disp: DC today Subjective: walking the unit today with walker Objective: Vital Signs Temp Pulse Resp BP Pulse Ox 36.7 C 79 18 120/68 93 09/21/16 08:28 09/21/16 08:28 09/21/16 08:28 09/21/16 08:28 09/21/16 08:28 Microbiology 09/17/16 Unknown Urine Culture - Final Urine,Clean Catch MRSA Aerococcus Urinae Two [place] Types Laboratory Results 09/20/16 05:30 09/21/16 05:35 09/20/16 09/21/16 09/22/16 05:59 05:59 05:59 Intake Total 2130 1999 Output Total 0 1450 450 Balance 60 550 -450 PT 12.7 SEC (12.0-15.0) 09/16/16 18:15 INR 0.96 (0.83-1.16) 09/16/16 18:15 - Physical Exam Constitutional: no apparent distress Eyes: PERRL Ears, Nose, Mouth, Throat: moist mucous membranes Cardiovascular: regular rate and rhythym Respiratory: no respiratory distress, no rales or rhonchi Gastrointestinal: normoactive bowel sounds, other (surgical incision site healing well. mildly TTP) Genitourinary: no bladder fullness, other (ostomy with pink tissue, clear yellow urine) Skin: warm Musculoskeletal: full muscle strength Neurologic: AAOx3, CN II-XII Intact Psychiatric: interacting appropriately, flat affect ICD10 Worksheet Patient Problems: Problems Problem Status Onset Abdominal pain Acute MRSA (methicillin resistant Staphylococcus aureus) Acute ~09/17/16 Shortness of breath Acute Urinary tract infection Acute Bladder cancer Acute Edema Acute Gross hematuria Acute Hydronephrosis, left Acute
--- NOTE | 2016-09-21 14:43 | PDIAF ---
- Diagnosis Diagnosis: parastomal hernia, s/p repair Code Status: Full Code - Medication Management Discharge Medications: Medications to Continue on Transfer Acetaminophen [Tylenol 325mg (*)] 650 mg PO Q6 PRN 09/16/16 [Last Taken Unknown] Loperamide HCl [Loperamide] 2 mg PO DAILY PRN 09/16/16 [Last Taken Unknown] Aspirin EC [Aspirin EC 81 mg (*)] 81 mg PO DAILY tab 09/21/16 [Last Taken Unknown] Sennosides/Docusate Sodium [Senokot-S] 1 - 2 tab PO BID tab 09/21/16 [Last Taken Unknown] oxyCODONE IR [Oxycodone Ir (*)] 5 mg PO Q6H PRN #30 tab 09/21/16 [Last Taken Unknown] Discharge Medications: Refer to the Discharge Home Medication list for PRN reason. - Orders Services needed: Registered Nurse (and psych services), Certified Actuarial Science Professor, Master Offal Worker, Physical Therapy Diet Recommendation: no restrictions on diet Diet Texture: Regular Texture Diet - Follow Up Care Current Providers and Referrals: Silvano Mercedes MD [Medical Doctor] - follow up in 2 weeks
--- NOTE | 2016-09-21 14:53 | SOAPPROG ---
SOAP Progress Note Assessment/Plan: Assessment: Right hydronephrosis Plan: Plan on outpatient ileal conduit loopogram to assess reflux for rt hydro and f/ u in office. 09/21/16 14:51 Subjective: Right kidney mildly hurts since ileal conduit placement Objective: Vital Signs Temp Pulse Resp BP Pulse Ox 36.7 C 79 18 120/68 93 09/21/16 08:28 09/21/16 08:28 09/21/16 08:28 09/21/16 08:28 09/21/16 08:28 Laboratory Results 09/20/16 05:30 09/21/16 05:35 09/20/16 09/21/16 09/22/16 05:59 05:59 05:59 Intake Total 2130 1999 Output Total 2070 1450 600 Balance 60 550 -600 PT 12.7 SEC (12.0-15.0) 09/16/16 18:15 INR 0.96 (0.83-1.16) 09/16/16 18:15 Physical Exam - Physical Exam General Appearance: alert, no apparent distress Respiratory: normal breath sounds, No respiratory distress Abdomen: other (mild right CVA TTP) ICD10 Worksheet Patient Problems: Problems Problem Status Onset Abdominal pain Acute MRSA (methicillin resistant Staphylococcus aureus) Acute ~09/17/16 Shortness of breath Acute Urinary tract infection Acute Bladder cancer Acute Edema Acute Gross hematuria Acute Hydronephrosis, left Acute
--- NOTE | 2016-09-21 16:01 | GDS ---
[f rep st] DISCHARGE SUMMARY DISCHARGE DIAGNOSES: 1. Parastomal hernia, status post repair. 2. Right hydronephrosis 3. Methicillin-resistant Staphylococcus aureus/Aerococcus in urine, suspected colonization. 4. History of bladder cancer status post cystoprostatectomy. 5.. Paroxysmal atrial fibrillation. 6. Deconditioning. HISTORY OF PRESENT ILLNESS: Patient is a 65-year-old male, with a history of bladder cancer status post resection with ileal conduit, presenting to the emergency room with right upper quadrant and right flank pain that started on the date of admission. He noticed increased abdominal distention and pain. Denies nausea or vomiting, fevers or chills. He has normal urine output through his ileal conduit, though some debris has been noted. He denies chest pain. He does feel a little bit of shortness of breath with his abdominal discomfort. No change in bowel function. In ER had a CT done which showed right-sided hydronephrosis and herniation of loops of small bowel to the right quadrant ostomy. Surgery was consulted. HOSPITAL COURSE BY PROBLEM: 1. Parastomal hernia: Patient underwent repair by surgery, he has been doing well postoperative. The surgical incision is healing well. Encouraged ambulation. P.r.n. oxycodone for pain, bowel regimen. 2. Right hydronephrosis: Urology was consulted. He does have a left ureter stent, that they plan to take out at some point. Renogram was completed for them to review. We will have the patient follow up with Dr. Mercedes as an outpatient. 3. History of bladder cancer status post cysto prostatectomy. 4. Paroxysmal atrial fibrillation, currently rate controlled. Started on 81 mg of aspirin. 5. Deconditioning. He uses a walker at baseline. Encouraged that he needs to be walking in the unit more frequently. DISPOSITION: Stable for discharge. MEDICATIONS: See medication reconciliation. FOLLOWUP: Dr. Mercedes with Urology. /[id number]/MODL MTDD
[2016-09-21] MEDS: oxyCODONE IR 5 MG TAB PO PRN (18:14)
--- NOTE | 2016-09-21 18:55 | SOAPPROG ---
SOAP Progress Note Assessment/Plan: Assessment: wound ok/ uo ok/ afebrile/ abd soft/ vs stable Plan:advance diet 09/17/16 10:22 09/18/16 22:33 SEEN EARLIER THIS AM/ WOUND OK/ AFEBRILE/ CO BLOATING/ ABD SOFT, MILDLY DISTENDED WITH BS/ STOMA PINK PROBABLE CONSTIPATION/ CHECK 2-WAY/ CATHARSIS 09/21/16 18:54 WOUND OKAY/OSTOMY OKAY/ AFEBRILE/ URINE OUTPUT GREAT / VERY SLOW TO MOBILIZE / HOPEFULLY HOME THIS WEEKEND Objective: Vital Signs Temp Pulse Resp BP Pulse Ox 37 C 87 16 109/88 H 92 09/21/16 17:10 09/21/16 17:10 09/21/16 17:10 09/21/16 17:10 09/21/16 17:10 Laboratory Results 09/20/16 05:30 09/21/16 05:35 09/20/16 09/21/16 09/22/16 05:59 05:59 05:59 Intake Total 0 1999 Output Total 2069 1450 750 Balance 60 550 -750 PT 12.7 SEC (12.0-15.0) 09/16/16 18:15 INR 0.96 (0.83-1.16) 09/16/16 18:15 ICD10 Worksheet Patient Problems: Problems Problem Status Onset Abdominal pain Acute MRSA (methicillin resistant Staphylococcus aureus) Acute ~09/17/16 Shortness of breath Acute Urinary tract infection Acute Bladder cancer Acute Edema Acute Gross hematuria Acute Hydronephrosis, left Acute
[2016-09-22] MEDS: HYDROCODONE/APAP 5/325 TAB PO PRN ×5 (00:34→19:29)
[2016-09-22 05:28] LABS: ANION GAP 10 mEq/L (8-16); CALCIUM 9.5 mg/dL (8.5-10.4); CARBON DIOXIDE 27 mEq/l (22-31); CHLORIDE 103 mEq/L (97-110); CREATININE 0.9 mg/dL (0.7-1.3); GLOMERULAR FILTRATION RATE > 60; GLUCOSE 91 mg/dL (70-100); POTASSIUM 4.7 mEq/L (3.5-5.2); SODIUM 140 mEq/L (134-144)
[2016-09-22] MEDS: SENNOSIDES/DOCUSATE SODIUM TAB PO SCH ×2 (08:58→20:35)
[2016-09-22] MEDS: ASPIRIN EC 81 MG TAB PO SCH (08:59)
[2016-09-22] MEDS: ENOXAPARIN 40 MG/0.4 ML SYR SC SCH (08:59)
--- NOTE | 2016-09-22 11:47 | HOSPPROG ---
Hospitalist Progress Note Assessment/Plan: Patient protested discharge yesterday, because did not want to go back to [facility]. No acute events overnight #Abd pain: improved since surgery #Incarcerated ileal conduit parastomal hernia -s/p repair. Healing well. Cleared from surgery for DC #MRSA/Aerococcus in urine: suspect colonization. Afebrile without leukocytosis. No signs of bacteremia. No treatment warranted #Right-sided hydronephritis: call out to Urology to discuss renogram. FU with them outpatient #h/o bladder cancer: s/p cystoprostatectomy #PAF: not on rate-controlling meds. Started ASA 81mg #Deconditioning: walker at baseline. Emphasized that he needs to be out of bed walking the unit #DVT ppx: Lovenox #Disp: DC today Subjective: no acute events Objective: Vital Signs Temp Pulse Resp BP Pulse Ox 36.7 C 77 16 123/70 H 90 L 09/22/16 08:00 09/22/16 08:00 09/22/16 08:00 09/22/16 08:00 09/22/16 08:00 Laboratory Results 09/20/16 05:30 09/22/16 04:44 09/21/16 09/22/16 09/23/16 05:59 05:59 05:59 Intake Total 2000 600 400 Output Total 1450 1500 400 Balance 550 -900 0 PT 12.7 SEC (12.0-15.0) 09/16/16 18:15 INR 0.96 (0.83-1.16) 09/16/16 18:15 - Physical Exam Constitutional: no apparent distress Eyes: PERRL Ears, Nose, Mouth, Throat: moist mucous membranes Cardiovascular: regular rate and rhythym, no murmur, rub, or gallop Respiratory: no respiratory distress, no rales or rhonchi Gastrointestinal: normoactive bowel sounds, other (surgical incision healing well) Genitourinary: no bladder fullness, other (ostomy with clear, yellow urine) Skin: warm Musculoskeletal: full muscle strength Neurologic: AAOx3 Psychiatric: depressed, flat affect ICD10 Worksheet Patient Problems: Problems Problem Status Onset Abdominal pain Acute MRSA (methicillin resistant Staphylococcus aureus) Acute ~09/17/16 Shortness of breath Acute Urinary tract infection Acute Bladder cancer Acute Edema Acute Gross hematuria Acute Hydronephrosis, left Acute
[2016-09-22] MEDS: oxyCODONE IR 5 MG TAB PO PRN (20:36)
[2016-09-23] MEDS: HYDROCODONE/APAP 5/325 TAB PO PRN ×5 (02:06→22:22)
[2016-09-23 05:37] VITALS: RESP 18
[2016-09-23 06:16] LABS: ANION GAP 10 mEq/L (8-16); CALCIUM 9.1 mg/dL (8.5-10.4); CARBON DIOXIDE 25 mEq/l (22-31); CHLORIDE 104 mEq/L (97-110); CREATININE 1.1 mg/dL (0.7-1.3); GLOMERULAR FILTRATION RATE > 60; GLUCOSE 106 mg/dL (70-100); POTASSIUM 4.6 mEq/L (3.5-5.2); SODIUM 139 mEq/L (134-144)
[2016-09-23] MEDS: ASPIRIN EC 81 MG TAB PO SCH (08:18)
[2016-09-23] MEDS: SENNOSIDES/DOCUSATE SODIUM TAB PO SCH ×2 (08:20→22:22)
[2016-09-23] MEDS: ENOXAPARIN 40 MG/0.4 ML SYR SC SCH (08:21)
[2016-09-23] MEDS: oxyCODONE IR 5 MG TAB PO PRN ×2 (08:31→20:18)
[2016-09-23] MEDS: ACYCLOVIR 400 MG TAB PO SCH ×3 (14:39→22:23)
--- NOTE | 2016-09-23 14:40 | HOSPPROG ---
Hospitalist Progress Note Assessment/Plan: #Herpes zoster: lesions new today. Start Acyclovir x 7 days. Resp/contact precautions -low-dose gabapentin for nerve pain qhs #Acute incisional abdominal pain: improved since surgery #Incarcerated ileal conduit parastomal hernia -s/p repair. Healing well. Cleared from surgery for DC #MRSA/Aerococcus in urine: suspect colonization. Afebrile without leukocytosis. No signs of bacteremia. No treatment warranted #Right-sided hydronephritis: call out to Urology to discuss renogram. FU with them outpatient #h/o bladder cancer: s/p cystoprostatectomy #PAF: not on rate-controlling meds. Started ASA 81mg #Deconditioning: walker at baseline. Emphasized that he needs to be out of bed walking the unit #DVT ppx: Lovenox #Disp: awaiting appeal processing for placement Subjective: c/o new burning pain right abdomen, flank Objective: Vital Signs Temp Pulse Resp BP Pulse Ox 36.7 C 70 18 107/71 94 09/23/16 07:53 09/23/16 07:53 09/23/16 07:53 09/23/16 07:53 09/23/16 07:53 Laboratory Results 09/20/16 05:30 09/23/16 05:25 09/22/16 09/23/16 09/24/16 05:59 05:59 05:59 Intake Total 600 900 Output Total 1500 1350 200 Balance -900 -450 -200 PT 12.7 SEC (12.0-15.0) 09/16/16 18:15 INR 0.96 (0.83-1.16) 09/16/16 18:15 - Physical Exam Constitutional: obese Eyes: PERRL Ears, Nose, Mouth, Throat: moist mucous membranes, hard of hearing Cardiovascular: regular rate and rhythym, no murmur, rub, or gallop Respiratory: no respiratory distress, no rales or rhonchi Gastrointestinal: normoactive bowel sounds, soft, non-tender abdomen Genitourinary: no bladder fullness, other (ostomy with yellow urine) Skin: warm, other (vesicles in deermatomal distribution along right abdomen, flank new today) Musculoskeletal: full muscle strength Neurologic: AAOx3, asterixes Psychiatric: interacting appropriately ICD10 Worksheet Patient Problems: Problems Problem Status Onset Abdominal pain Acute MRSA (methicillin resistant Staphylococcus aureus) Acute ~09/17/16 Shortness of breath Acute Urinary tract infection Acute Bladder cancer Acute Edema Acute Gross hematuria Acute Hydronephrosis, left Acute
--- NOTE | 2016-09-23 16:41 | SOAPPROG ---
SOAP Progress Note Assessment/Plan: Assessment: wound ok/ uo ok/ afebrile/ abd soft/ vs stable Plan:advance diet 09/17/16 10:22 09/18/16 22:33 SEEN EARLIER THIS AM/ WOUND OK/ AFEBRILE/ CO BLOATING/ ABD SOFT, MILDLY DISTENDED WITH BS/ STOMA PINK PROBABLE CONSTIPATION/ CHECK 2-WAY/ CATHARSIS 09/21/16 18:54 WOUND OKAY/OSTOMY OKAY/ AFEBRILE/ URINE OUTPUT GREAT / VERY SLOW TO MOBILIZE / HOPEFULLY HOME THIS 09/23/16 16:40 wound okay/afebrile/eating well / still complains of incisional pain but is incision looks great / ostomy okay /urine output good / home soon Objective: Vital Signs Temp Pulse Resp BP Pulse Ox 36.8 C 99 18 113/77 94 09/23/16 16:00 09/23/16 16:00 09/23/16 16:00 09/23/16 16:00 09/23/16 16:00 Laboratory Results 09/20/16 05:30 09/23/16 05:25 09/22/16 09/23/16 09/24/16 05:59 05:59 05:59 Intake Total 600 900 Output Total 1500 1350 575 Balance -900 -450 -575 PT 12.7 SEC (12.0-15.0) 09/16/16 18:15 INR 0.96 (0.83-1.16) 09/16/16 18:15 ICD10 Worksheet Patient Problems: Problems Problem Status Onset Abdominal pain Acute MRSA (methicillin resistant Staphylococcus aureus) Acute ~09/17/16 Shortness of breath Acute Urinary tract infection Acute Bladder cancer Acute Edema Acute Gross hematuria Acute Hydronephrosis, left Acute
[2016-09-23] MEDS ORDERED: GABAPENTIN 300 MG CAP PO SCH (21:00)
[2016-09-24] MEDS: HYDROCODONE/APAP 5/325 TAB PO PRN ×3 (02:37→13:24)
[2016-09-24 06:02] LABS: ANION GAP 8 mEq/L (8-16); CALCIUM 8.9 mg/dL (8.5-10.4); CARBON DIOXIDE 26 mEq/l (22-31); CHLORIDE 104 mEq/L (97-110); GLOMERULAR FILTRATION RATE > 60; GLUCOSE 96 mg/dL (70-100); POTASSIUM 4.9 mEq/L (3.5-5.2); SODIUM 138 mEq/L (134-144)
[2016-09-24] MEDS: ACYCLOVIR 400 MG TAB PO SCH ×3 (06:37→13:24)
[2016-09-24] MEDS: ENOXAPARIN 40 MG/0.4 ML SYR SC SCH (08:31)
[2016-09-24] MEDS: SENNOSIDES/DOCUSATE SODIUM TAB PO SCH (08:31)
[2016-09-24] MEDS: ASPIRIN EC 81 MG TAB PO SCH (08:31)
[2016-09-24 09:11] VITALS: BP 124/80; PULSE 81; TEMP 97.7; O2SAT 92
--- NOTE | 2016-09-24 14:28 | SOAPPROG ---
SOAP Progress Note Assessment/Plan: Assessment: wound ok/ uo ok/ afebrile/ abd soft/ vs stable Plan:advance diet 09/17/16 10:22 09/18/16 22:33 SEEN EARLIER THIS AM/ WOUND OK/ AFEBRILE/ CO BLOATING/ ABD SOFT, MILDLY DISTENDED WITH BS/ STOMA PINK PROBABLE CONSTIPATION/ CHECK 2-WAY/ CATHARSIS 09/21/16 18:54 WOUND OKAY/OSTOMY OKAY/ AFEBRILE/ URINE OUTPUT GREAT / VERY SLOW TO MOBILIZE / HOPEFULLY HOME THIS 09/23/16 16:40 wound okay/afebrile/eating well / still complains of incisional pain but is incision looks great / ostomy okay /urine output good / home soon 09/24/16 14:27 WOUND OKAY/ AFEBRILE/ OSTOMY OKAY/ EATING OKAY/ NOW APPEARS TO HAVE A SHINGLES A CAUSE OF HIS PAIN / ON ACYCLOVIR Objective: Vital Signs Temp Pulse Resp BP Pulse Ox 36.5 C 81 18 124/80 H 92 09/24/16 08:55 09/24/16 08:55 09/24/16 08:55 09/24/16 08:55 09/24/16 08:55 Laboratory Results 09/20/16 05:30 09/24/16 05:24 09/23/16 09/24/16 09/25/16 05:59 05:59 05:59 Intake Total 900 1750 400 Output Total 1350 925 500 Balance -450 825 -100 PT 12.7 SEC (12.0-15.0) 09/16/16 18:15 INR 0.96 (0.83-1.16) 09/16/16 18:15 ICD10 Worksheet Patient Problems: Problems Problem Status Onset Abdominal pain Acute MRSA (methicillin resistant Staphylococcus aureus) Acute ~09/17/16 Shortness of breath Acute Urinary tract infection Acute Bladder cancer Acute Edema Acute Gross hematuria Acute Hydronephrosis, left Acute
--- NOTE | 2016-09-24 15:34 | PDIAF ---
- Diagnosis Diagnosis: parastomal hernia, s/p repair Code Status: Full Code - Medication Management Discharge Medications: Medications to Continue on Transfer Acetaminophen [Tylenol 325mg (*)] 650 mg PO Q6 PRN 09/16/16 [Last Taken Unknown] Loperamide HCl [Loperamide] 2 mg PO DAILY PRN 09/16/16 [Last Taken Unknown] Aspirin EC [Aspirin EC 81 mg (*)] 81 mg PO DAILY tab 09/21/16 [Last Taken Unknown] Sennosides/Docusate Sodium [Senokot-S] 1 - 2 tab PO BID tab 09/21/16 [Last Taken Unknown] oxyCODONE IR [Oxycodone Ir (*)] 5 mg PO Q6H PRN #30 tab 09/21/16 [Last Taken Unknown] Discharge Medications: Refer to the Discharge Home Medication list for PRN reason. - Orders Services needed: Registered Nurse (and psych services), Certified Director Of Billing, Master Geodetic Engineer (referral for psychiatric services), Physical Therapy Diet Recommendation: no restrictions on diet Diet Texture: Regular Texture Diet - Follow Up Care Current Providers and Referrals: Silvano Mercedes MD [Medical Doctor] - follow up in 2 weeks
--- NOTE | 2016-09-24 15:42 | HOSPPROG ---
Hospitalist Progress Note Assessment/Plan: #Herpes zoster: Acyclovir x 7 days. Resp/contact precautions -low-dose gabapentin for nerve pain qhs. 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 Healing well. Cleared from surgery for DC #MRSA/Aerococcus in urine: suspect colonization. Afebrile without leukocytosis. No signs of bacteremia. No treatment warranted #Right-sided hydronephritis: call out to Urology to discuss renogram. FU with them outpatient #h/o bladder cancer: s/p cystoprostatectomy #PAF: not on rate-controlling meds. Started ASA 81mg #Deconditioning: walker at baseline. Emphasized that he needs to be out of bed walking the unit #DVT ppx: Lovenox #Disp: DC today Subjective: c/o 1 episode loose stool Objective: Vital Signs Temp Pulse Resp BP Pulse Ox 36.5 C 81 18 124/80 H 92 09/24/16 08:55 09/24/16 08:55 09/24/16 08:55 09/24/16 08:55 09/24/16 08:55 Laboratory Results 09/20/16 05:30 09/24/16 05:24 09/23/16 09/24/16 09/25/16 05:59 05:59 05:59 Intake Total 900 1750 400 Output Total 1350 925 500 Balance -450 825 -100 PT 12.7 SEC (12.0-15.0) 09/16/16 18:15 INR 0.96 (0.83-1.16) 09/16/16 18:15 - Physical Exam Constitutional: no apparent distress Eyes: PERRL Ears, Nose, Mouth, Throat: moist mucous membranes Cardiovascular: regular rate and rhythym, no murmur, rub, or gallop Respiratory: no respiratory distress Gastrointestinal: normoactive bowel sounds, other (incision site C/D/I) Genitourinary: no bladder fullness Skin: warm, other (closed vesicles along right abd and flank) Musculoskeletal: full muscle strength, other (walking with walker) Neurologic: AAOx3, CN II-XII Intact Psychiatric: depressed, flat affect ICD10 Worksheet Patient Problems: Problems Problem Status Onset Abdominal pain Acute MRSA (methicillin resistant Staphylococcus aureus) Acute ~09/17/16 Shortness of breath Acute Urinary tract infection Acute Bladder cancer Acute Edema Acute Gross hematuria Acute Hydronephrosis, left Acute
--- NOTE | 2016-09-24 16:50 | GDS ---
[f rep st] DISCHARGE SUMMARY Please refer to my initial discharge summary on 09/21/16, for full details as the patient was to be discharged but appealed his discharge back to [facility]. DISCHARGE DIAGNOSES: 1. Parasternal hernia, status post repair. 2. Right hydronephrosis 3. Methicillin-resistant Staphylococcus aureus/Aerococcus in urine, suspected colonization. 4. History of bladder cancer, status post cystoprostatectomy with ileal conduit. 5. Paroxysmal atrial fibrillation. 6. Deconditioning. 7. Herpes zoster. 8. Chronic hypoxemic respiratory failure. HOSPITAL COURSE: Again, please see initial discharge summary dated 09/21/16. New issue since that summary: 1. Herpes zoster: Patient developed vesicles the day prior to discharge along his right abdomen and flank. He will complete a 7-day course of acyclovir. Started gabapentin 300 mg at bedtime. This can be up titrated slowly to prevent sedation. 2. Chronic hypoxemic respiratory failure. The patient is on oxygen at night. FOLLOWUP: 1. Dr. Mercedes with Urology. 2. Dr. Garrett with Surgery. 3. Recommend Psychiatric Services. Up titrate Neurontin slowly for neuropathic pain associated with zoster. /[id number]/MODL MTDD
== END 2016-09-24 16:55 | DRG 354 ==
LOC: EDUNIT# → OBSVTOIN 22:20 → F2N 23:35 → F3N 09-17 02:18 → F1N 09-17 02:22
PROVIDERS: ADMIT Hospitalist; ATTEND Hospitalist
PROC: 0WQF0ZZ Repair Abdominal Wall, Open Approach (ICD-10-PCS; principal; 2016-09-16 22:59)
DX: K43.3 Parastomal hernia with obstruction, without gangrene (principal); N13.30 Unspecified hydronephrosis; B02.9 Zoster without complications; E87.5 Hyperkalemia; A49.02 Methicillin resistant Staphylococcus aureus infection, unspecified site; I10 Essential (primary) hypertension; I48.0 Paroxysmal atrial fibrillation; J96.11 Chronic respiratory failure with hypoxia; Z85.51 Personal history of malignant neoplasm of bladder; Z93.6 Other artificial openings of urinary tract status; Z87.440 Personal history of urinary (tract) infections; F17.210 Nicotine dependence, cigarettes, uncomplicated; Z99.81 Dependence on supplemental oxygen
CPT/HCPCS: 96365; 97116-GP; 97162-GP; 97166-GO; 97530-GP; 97535-GO; A9562; G8978-GP-CK; G8979-GP-CI; G8987-GO-CJ; G8988-GO-CI; J0696; J1100; J1170; J1642; J1650; J1940; J2405; J2704; J2710; J3010; Q9967

== ENCOUNTER 2016-09-30 17:20 | Emergency (ER) | payer OTHER, MEDICAID ==
[2016-09-30] MEDS ORDERED: NS 1,000 ML IV ONE (17:34)
[2016-09-30] MEDS ORDERED: HYDROmorphONE/DILAUDID 1 MG/ML SYR IVP ONE ×2 (17:34→20:04)
--- NOTE | 2016-09-30 17:39 | EDPHY ---
H & P Time Seen by Provider: 09/30/16 17:27 HPI/ROS: CHIEF COMPLAINT: Abdominal pain HISTORY OF PRESENT ILLNESS: Patient is a 65-year-old man with a history of bladder cancer status post cystoprostatectomy with a urostomy bag from his right lower quadrant as well as a right ureteral stent for history of hydronephrosis. He was seen here 10 days ago for a parastomal hernia. He underwent repair by surgery with Dr. Garrett and did well postoperatively other than developing shingles. Yesterday he and his nurse noticed that the ureteral stent which had been poking out of his urostomy disappeared inside of him. He states that since that time he has had increased right lower quadrant pain. No fevers. No vomiting or nausea. He has had normal bowel movements. Continues to have normal urine output into his ostomy bag. REVIEW OF SYSTEMS: Constitutional: denies: chills, fever, recent illness, recent injury EENTM: denies: blurred vision, double vision, nose congestion Respiratory: denies: cough, shortness of breath Cardiac: denies: chest pain, irregular heart rate, lightheadedness, palpitations Gastrointestinal/Abdominal: See HPI Genitourinary: denies: dysuria, frequency, hematuria, pain Musculoskeletal: denies: joint pain, muscle pain Skin: denies: lesions, rash, jaundice, bruising Neurological: denies: headache, numbness, paresthesia, tingling, dizziness, weakness Hematologic/Lymphatic: denies: blood clots, easy bleeding, easy bruising Immunologic/allergic: denies: HIV/AIDS, transplant EXAM: GENERAL: Well-appearing, well-nourished and in no acute distress. HEAD: Atraumatic, normocephalic. EYES: Pupils equal round and reactive to light, extraocular movements intact, sclera anicteric, conjunctiva are normal. ENT: TMs normal, nares patent, oropharynx clear without exudates. Moist mucous membranes. NECK: Normal range of motion, supple without lymphadenopathy or JVD. LUNGS: Breath sounds clear to auscultation bilaterally and equal. No wheezes rales or rhonchi. HEART: Regular rate and rhythm without murmurs, rubs or gallops. ABDOMEN: Mildly distended, pain in right lower quadrant, ostomy intact, incision intact clean and dry, no tenderness to palpation. BACK: No CVA tenderness, no spinal tenderness, step-offs or deformities EXTREMITIES: Normal range of motion, no pitting or edema. No clubbing or cyanosis. NEUROLOGICAL: Cranial nerves II through XII grossly intact. Normal speech, normal gait. 5/5 strength, normal movement in all extremities, normal sensation PSYCH: Normal mood, normal affect. SKIN: Warm, dry, normal turgor, no visible rashes or lesions. Source: Patient Exam Limitations: No limitations - Personal History Tetanus Vaccine Date: 2014 - Medical/Surgical History Hx Asthma: No Hx Chronic Respiratory Disease: No Hx Diabetes: No Hx Cardiac Disease: No Hx Renal Disease: No Hx Cirrhosis: No Hx Alcoholism: No Hx HIV/AIDS: No Hx Splenectomy or Spleen Trauma: No Other PMH: bilateral knee surgeries, left hip surgery, appy, bladder CA w nephrostomy & urostomy - Family History Significant Family History: No pertinent family hx - Social History Smoking Status: Current some day smoker Alcohol Use: Sober Drug Use: None Constitutional: Initial Vital Signs Temperature (C) 36.4 C 09/30/16 17:20 Heart Rate 84 09/30/16 17:20 Respiratory Rate 16 09/30/16 17:20 Blood Pressure 145/91 H 09/30/16 17:20 O2 Sat (%) 92 09/30/16 17:20 O2 Delivery Mode Room Air O2 (L/minute) 2 Allergies/Adverse Reactions: No Known Allergies Allergy (Unverified 09/16/16 21:42) Home Medications: Medication Instructions Recorded Acetaminophen [Tylenol 325mg (*)] 650 mg PO Q6 PRN 09/16/16 Loperamide HCl [Loperamide] 2 mg PO DAILY PRN 09/16/16 Aspirin EC [Aspirin EC 81 mg (*)] 81 mg PO DAILY tab 09/21/16 Sennosides/Docusate Sodium 1 - 2 tab PO BID tab 09/21/16 [Senokot-S] Acyclovir [Zovirax 400 mg (*)] 800 mg PO 5XD #30 tab 09/24/16 [place] 10-325 Tablet 09/30/16 Prochlorperazine Maleate 09/30/16 Medical Decision Making - Diagnostics Imaging Results: Imaging Impressions Abdomen CT 09/30/16 17:35 Impression: 1. Interval postsurgical changes of repair of the hernia adjacent to the stoma for the urinary diversion. There is a 6 x 3 cm fluid collection which could represent postoperative hematoma or seroma. Abscess would be less likely. 2. The left ureteral stent has been removed over the interval. Stable dilatation of the collecting systems bilaterally and ureter felt to be secondary to a capacious collecting system and nonobstructed per recent nuclear medicine study. 3. Other chronic findings, as above which are stable. Results called and discussed with Jaquan Vallecillo MD on September 30, 2016 at 1925 hours. Imaging: Discussed imaging studies w/ call center analyst Radiologist ED Course/Re-evaluation: 8:00 p.m. I discussed the case and reviewed the images with Dr. Debra Elizabeth. She suspects that this is a hematoma. The patient is nontoxic-appearing and has a nontender abdomen. His lab work is unremarkable. Will discharge home and he will follow up with Dr. Garrett this week. He understands this plan. Looks as though he has passed his ureteral stent which Dr. Mercedes had planned to remove any ways. He has mild hydronephrosis which is unchanged from previous imaging. Differential Diagnosis: Partial list of the Differential diagnosis considered include but were not limited to; hematoma, seroma and although unlikely based on the history and physical exam, I also considered abscess, perforation, ischemia, volvulus, obstruction, ureteral injury. I discussed these differential diagnoses and the plan with the patient as well as the usual and expected course. The patient understands that the diagnosis is provisional and that in medicine we are not always correct and that further workup is often warranted. Usual and customary warnings were given. All of the patient's questions were answered. The patient was instructed to return to the emergency department should the symptoms at all worsen or return, otherwise to followup with the physician as we discussed. - Data Points Laboratory Results: Laboratory Results 09/30/16 17:50 09/30/16 17:50 09/30/16 09/30/16 17:50 17:50 WBC 7.44 10^3/uL 10^3/uL (3.80-9.50) RBC 3.64 10^6/uL L 10^6/uL (4.40-6.38) Hgb 10.4 g/dL L g/dL (13.7-17.5) Hct 33.6 % L % (40.0-51.0) MCV 92.3 fL fL (81.5-99.8) MCH 28.6 pg pg (27.9-34.1) MCHC 31.0 g/dL L g/dL (32.4-36.7) RDW 15.4 % H % (11.5-15.2) Plt Count 289 10^3/uL 10^3/uL (150-400) MPV 8.8 fL fL (8.7-11.7) Neut % (Auto) 70.6 % % (39.3-74.2) Lymph % (Auto) 17.1 % % (15.0-45.0) [place] % (Auto) 8.1 % % (4.5-13.0) Eos % (Auto) 3.1 % % (0.6-7.6) Baso % (Auto) 0.7 % % (0.3-1.7) Nucleat RBC Rel Count 0.0 % % (0.0-0.2) Absolute Neuts (auto) 5.26 10^3/uL 10^3/uL (1.70-6.50) Absolute Lymphs (auto) 1.27 10^3/uL 10^3/uL (1.00-3.00) Absolute Monos (auto) 0.60 10^3/uL 10^3/uL (0.30-0.80) Absolute Eos (auto) 0.23 10^3/uL 10^3/uL (0.03-0.40) Absolute Basos (auto) 0.05 10^3/uL 10^3/uL (0.02-0.10) Absolute Nucleated RBC 0.00 10^3/uL 10^3/uL (0-0.01) Immature Gran % 0.4 % % (0.0-1.1) Immature Gran # 0.03 10^3/uL 10^3/uL (0.00-0.10) Sodium 141 mEq/L mEq/L (134-144) Potassium 4.6 mEq/L mEq/L (3.5-5.2) Chloride 106 mEq/L mEq/L (97-110) Carbon Dioxide 24 mEq/l mEq/l (22-31) Anion Gap 11 mEq/L mEq/L (8-16) BUN 28 mg/dL H mg/dL (7-23) Creatinine 1.0 mg/dL mg/dL (0.7-1.3) Estimated GFR > 60 Glucose 96 mg/dL mg/dL (70-100) Calcium 9.0 mg/dL mg/dL (8.5-10.4) Total Bilirubin 0.2 mg/dL mg/dL (0.1-1.4) Conjugated Bilirubin 0.2 mg/dL mg/dL (0.0-0.5) Unconjugated Bilirubin 0.0 mg/dL mg/dL (0.0-1.1) AST 18 IU/L IU/L (17-59) ALT 28 IU/L IU/L (21-72) Alkaline Phosphatase 79 IU/L IU/L (38-126) Total Protein 7.1 g/dL g/dL (6.3-8.2) Albumin 3.7 g/dL g/dL (3.5-5.0) Lipase 42.0 IU/L IU/L (23-300) Medications Given: Discontinued Medications Hydromorphone HCl (Dilaudid) 1 mg IVP EDNOW ONE Stop: 09/30/16 17:35 Last Admin: 09/30/16 18:03 Dose: 1 mg Hydromorphone HCl (Dilaudid) 1 mg IVP EDNOW ONE Stop: 09/30/16 20:05 Last Admin: 09/30/16 20:18 Dose: 1 mg Sodium Chloride (Ns) 1,000 mls @ 0 mls/hr IV ONCE ONE; Wide Open PRN Reason: Protocol Stop: 09/30/16 17:35 Last Admin: 09/30/16 18:03 Dose: 1,000 mls Departure - Departure Disposition: Home, Routine, Self-Care Clinical Impression: Abdominal wall hematoma Qualifiers: Encounter type: initial encounter Qualified Code(s): S30.1XXA - Contusion of abdominal wall, initial encounter Condition: Fair Instructions: Hematoma (ED) Referrals: Patient,NotPresent [Unknown] - As per Instructions Jimmy Garrett MD [Medical Doctor] - 3-4 days, if not improved
[2016-09-30 17:41] VITALS: RESP 16
[2016-09-30 17:59] LABS: % IMMATURE GRANULYOCYTES 0.4 % (0.0-1.1); ABSOLUTE IMMATURE GRANULOCYTES 0.03 10^3/uL (0.00-0.10); ADD DIFF? NO; ADD MORPH? NO; ADD SCAN? NO; ATYPICAL LYMPHOCYTE FLAG 20 (0-99); FRAGMENT RBC FLAG 0 (0-99); HEMATOCRIT 33.6 % (40.0-51.0); HEMOGLOBIN 10.4 g/dL (13.7-17.5); LEFT SHIFT FLG 0 (0-99); LIPEMIA HEMOLYSIS FLAG 80 (0-99); MEAN CELL HEMOGLOBIN 28.6 pg (27.9-34.1); MEAN CELL VOLUME 92.3 fL (81.5-99.8); MEAN PLATELET VOLUME 8.8 fL (8.7-11.7); PLATELET CLUMPS FLAG 0 (0-99); PLATELET COUNT 289 10^3/uL (150-400); RED BLOOD CELL COUNT 3.64 10^6/uL (4.40-6.38); RED CELL DISTRIBUTION WIDTH 15.4 % (11.5-15.2)
[2016-09-30 18:12] LABS: ALANINE AMINOTRANSFERASE 28 IU/L (21-72); ALBUMIN 3.7 g/dL (3.5-5.0); ALKALINE PHOSPHATASE 79 IU/L (38-126); ANION GAP 11 mEq/L (8-16); ASPARTATE AMINOTRANSFERASE 18 IU/L (17-59); BILIRUBIN,TOTAL 0.2 mg/dL (0.1-1.4); BILIRUBIN-CONJUGATED 0.2 mg/dL (0.0-0.5); CARBON DIOXIDE 24 mEq/l (22-31); CHLORIDE 106 mEq/L (97-110); GLOMERULAR FILTRATION RATE > 60; GLUCOSE 96 mg/dL (70-100); POTASSIUM 4.6 mEq/L (3.5-5.2); SODIUM 141 mEq/L (134-144); TOTAL PROTEIN 7.1 g/dL (6.3-8.2)
[2016-09-30] MEDS ORDERED: IOPAMIDOL (ISOVUE-300) 100 ML BTL ONE (18:24)
[2016-09-30 20:41] VITALS: BP 140/78; PULSE 67; TEMP 97.3; O2SAT 98
== END 2016-09-30 20:53 | disposition home or self-care (01) ==
LOC: EDUNIT#
DX: N99.820 Postprocedural hemorrhage of a genitourinary system organ or structure following a genitourinary system procedure (principal); F17.200 Nicotine dependence, unspecified, uncomplicated; Z85.51 Personal history of malignant neoplasm of bladder
CPT/HCPCS: 74177; 96374; 96376; 99285; J1170; Q9967

== ENCOUNTER → 2016-10-02 | Outpatient (CLI) | payer OTHER, MEDICAID ==
[~2016-10-02] MED LIST: IOPAMIDOL (ISOVUE-370) 150 ML BTL IV ONE; LIDOCAINE 2% JELLY 5 ML TUBE ONE
== END ==
LOC: FIMAGING 12:54
PROVIDERS: ATTEND Physician Assistant Medical
PROC: 3E0K3KZ Introduction of Other Diagnostic Substance into Genitourinary Tract, Percutaneous Approach (ICD-10-PCS; principal; 2016-10-02)
DX: N13.70 Vesicoureteral-reflux, unspecified (principal); Z98.890 Other specified postprocedural states
CPT/HCPCS: 50430; 74425; Q9967

== ENCOUNTER → 2016-11-21 | Outpatient (CLI) | payer OTHER, MEDICAID | LOC: BHLMT 15:00 | PROVIDERS: ATTEND Internal Medicine Interventional Cardiology | DX: I50.30 Unspecified diastolic (congestive) heart failure (principal); I48.0 Paroxysmal atrial fibrillation | CPT/HCPCS: 93005-PO ==

== ENCOUNTER 2016-11-28 07:59 | Emergency (ER) | payer OTHER, MEDICAID ==
[2016-11-28] MEDS ORDERED: NS 1,000 ML IV ONE (08:28)
--- NOTE | 2016-11-28 08:31 | EDPHY ---
H & P Stated Complaint: R sided abd pain Time Seen by Provider: 11/28/16 08:23 HPI/ROS: CHIEF COMPLAINT: Abdominal pain HISTORY OF PRESENT ILLNESS: The patient is a 66-year-old man with history of bladder cancer status post bladder and prostate resection with urostomy bag in his right lower quadrant who was seen earlier this summer for a parastomal incarcerated hernia and taken to the operating room by Dr. Garrett. He recovered well other than an episode of shingles postoperatively. I saw him in September because he was concerned that a kidney stent had been lost. We discovered a hematoma on CT scan and he followed up with Dr. Garrett as an outpatient. He is currently at the alf and yesterday was complaining of diffuse abdominal pain. They performed an x-ray and told him that he had constipation and wanted to perform a rectal exam. The patient adamantly refused this so they sent him to the hospital. Patient tells me that he had a bowel movement yesterday that he usually has 1 every 2 or 3 days. He continues to pass gas. He has not been febrile. He has not been vomiting. He has not had any change in his urostomy output. REVIEW OF SYSTEMS: Constitutional: denies: chills, fever, recent illness, recent injury EENTM: denies: blurred vision, double vision, nose congestion Respiratory: denies: cough, shortness of breath Cardiac: denies: chest pain, irregular heart rate, lightheadedness, palpitations Gastrointestinal/Abdominal: See HPI Genitourinary: denies: dysuria, frequency, hematuria, pain Musculoskeletal: denies: joint pain, muscle pain Skin: denies: lesions, rash, jaundice, bruising Neurological: denies: headache, numbness, paresthesia, tingling, dizziness, weakness Hematologic/Lymphatic: denies: blood clots, easy bleeding, easy bruising Immunologic/allergic: denies: HIV/AIDS, transplant EXAM: GENERAL: Well-appearing, well-nourished and in no acute distress. HEAD: Atraumatic, normocephalic. EYES: Pupils equal round and reactive to light, extraocular movements intact, sclera anicteric, conjunctiva are normal. ENT: TMs normal, nares patent, oropharynx clear without exudates. Moist mucous membranes. NECK: Normal range of motion, supple without lymphadenopathy or JVD. LUNGS: Breath sounds clear to auscultation bilaterally and equal. No wheezes rales or rhonchi. HEART: Regular rate and rhythm without murmurs, rubs or gallops. ABDOMEN: Distended, mild diffuse pain, mild tenderness, urostomy bag in place, clear urine, no obvious hernia, incisions intact, BACK: No CVA tenderness, no spinal tenderness, step-offs or deformities EXTREMITIES: Normal range of motion, no pitting or edema. No clubbing or cyanosis. NEUROLOGICAL: Cranial nerves II through XII grossly intact. Normal speech, normal gait. 5/5 strength, normal movement in all extremities, normal sensation PSYCH: Normal mood, normal affect. SKIN: Warm, dry, normal turgor, no visible rashes or lesions. Source: Patient Exam Limitations: No limitations - Personal History Current Tetanus/Diphtheria Vaccine: Yes Current Tetanus Diphtheria and Acellular Pertussis (TDAP): Yes Tetanus Vaccine Date: 2014 - Medical/Surgical History Hx Asthma: No Hx Chronic Respiratory Disease: No Hx Diabetes: No Hx Cardiac Disease: No Hx Renal Disease: No Hx Cirrhosis: No Hx Alcoholism: No Hx HIV/AIDS: No Hx Splenectomy or Spleen Trauma: No Other PMH: hernia surg. bilateral knee surgeries, left hip surgery, appy, bladder CA w nephrostomy & urostomy - Family History Significant Family History: No pertinent family hx - Social History Smoking Status: Current some day smoker Alcohol Use: Sober Drug Use: None Constitutional: Initial Vital Signs Temperature (C) 36.7 C 11/28/16 08:03 Heart Rate 72 11/28/16 08:03 Respiratory Rate 16 11/28/16 08:03 Blood Pressure 141/96 H 11/28/16 08:03 O2 Sat (%) 92 11/28/16 08:03 O2 Delivery Mode Room Air Allergies/Adverse Reactions: No Known Allergies Allergy (Unverified 09/16/16 21:42) Home Medications: Medication Instructions Recorded Acetaminophen [Tylenol 325mg (*)] 650 mg PO Q6 PRN 09/16/16 Loperamide HCl [Loperamide] 2 mg PO DAILY PRN 09/16/16 Aspirin EC [Aspirin EC 81 mg (*)] 81 mg PO DAILY tab 09/21/16 Sennosides/Docusate Sodium 1 - 2 tab PO BID tab 09/21/16 [Senokot-S] Acyclovir [Zovirax 400 mg (*)] 800 mg PO 5XD #30 tab 09/24/16 [place] 10-325 Tablet 09/30/16 Prochlorperazine Maleate 09/30/16 Medical Decision Making - Diagnostics Imaging: Discussed imaging studies w/ tax appraiser Radiologist ED Course/Re-evaluation: Patient's CT and lab work is all very reassuring. His abdominal exam is benign. He feels much better. We will discharge him to the alf. We discussed indications for returning. Differential Diagnosis: Partial list of the Differential diagnosis considered include but were not limited to; gastritis, constipation, small-bowel obstruction, diverticulitis and although unlikely based on the history and physical exam, I also considered kidney stone, biliary disease, ischemia, volvulus. I discussed these differential diagnoses and the plan with the patient as well as the usual and expected course. The patient understands that the diagnosis is provisional and that in medicine we are not always correct and that further workup is often warranted. Usual and customary warnings were given. All of the patient's questions were answered. The patient was instructed to return to the emergency department should the symptoms at all worsen or return, otherwise to followup with the physician as we discussed. - Data Points Laboratory Results: Laboratory Results 11/28/16 08:40 11/28/16 08:40 Medications Given: Discontinued Medications Sodium Chloride (Ns) 1,000 mls @ 0 mls/hr IV EDNOW ONE; Wide Open PRN Reason: Protocol Stop: 11/28/16 08:29 Last Admin: 11/28/16 08:43 Dose: 1,000 mls Departure - Departure Disposition: Home, Routine, Self-Care Clinical Impression: Abdominal pain Qualifiers: Abdominal location: generalized Qualified Code(s): R10.84 - Generalized abdominal pain Condition: Fair Instructions: Abdominal Pain (ED) Referrals: MAT WHEATLEY [Primary Care Provider] - As per Instructions
[2016-11-28] MEDS ORDERED: IOPAMIDOL (ISOVUE-300) 100 ML BTL ONE (08:35)
[2016-11-28 08:44] LABS: % IMMATURE GRANULYOCYTES 0.4 % (0.0-1.1); ABSOLUTE IMMATURE GRANULOCYTES 0.02 10^3/uL (0.00-0.10); ADD DIFF? NO; ADD MORPH? NO; ADD SCAN? NO; ATYPICAL LYMPHOCYTE FLAG 10 (0-99); FRAGMENT RBC FLAG 0 (0-99); HEMATOCRIT 37.9 % (40.0-51.0); HEMOGLOBIN 11.6 g/dL (13.7-17.5); LEFT SHIFT FLG 0 (0-99); LIPEMIA HEMOLYSIS FLAG 80 (0-99); MEAN CELL HEMOGLOBIN 28.3 pg (27.9-34.1); MEAN CELL HEMOGLOBIN CONCENTR. 30.6 g/dL (32.4-36.7); MEAN CELL VOLUME 92.4 fL (81.5-99.8); MEAN PLATELET VOLUME 9.5 fL (8.7-11.7); PLATELET CLUMPS FLAG 10 (0-99); PLATELET COUNT 233 10^3/uL (150-400); RED CELL DISTRIBUTION WIDTH 15.7 % (11.5-15.2)
[2016-11-28 09:02] LABS: ALANINE AMINOTRANSFERASE 31 IU/L (21-72); ALBUMIN 4.1 g/dL (3.5-5.0); ALKALINE PHOSPHATASE 80 IU/L (38-126); ANION GAP 13 mEq/L (8-16); ASPARTATE AMINOTRANSFERASE 23 IU/L (17-59); BILIRUBIN,TOTAL 0.5 mg/dL (0.1-1.4); BILIRUBIN-CONJUGATED 0.4 mg/dL (0.0-0.5); BILIRUBIN-UNCONJUGATED 0.1 mg/dL (0.0-1.1); CALCIUM 9.1 mg/dL (8.5-10.4); CARBON DIOXIDE 24 mEq/l (22-31); CHLORIDE 105 mEq/L (97-110); GLOMERULAR FILTRATION RATE > 60; GLUCOSE 95 mg/dL (70-100); POTASSIUM 4.5 mEq/L (3.5-5.2); SODIUM 142 mEq/L (134-144); TOTAL PROTEIN 7.3 g/dL (6.3-8.2)
[2016-11-28 12:34] VITALS: BP 153/74; PULSE 65; RESP 18; TEMP 98.2; O2SAT 94
== END 2016-11-28 12:34 | disposition home or self-care (01) ==
LOC: EDUNIT#
DX: R10.84 Generalized abdominal pain (principal); E86.9 Volume depletion, unspecified; F17.200 Nicotine dependence, unspecified, uncomplicated; Z79.82 Long term (current) use of aspirin; Z85.51 Personal history of malignant neoplasm of bladder
CPT/HCPCS: 74177; 96360; 99285; Q9967

== ENCOUNTER 2016-12-04 14:47 | Emergency (ER) | payer OTHER, MEDICAID ==
--- NOTE | 2016-12-04 15:37 | EDPHY ---
H & P Time Seen by Provider: 12/04/16 15:00 HPI/ROS: HPI Possible urinary tract infection, aggressive behavior. 66-year-old male from [facility]. He is on an M1 hold. State regular toward report visiting the site of [facility]. The patient just returned from lunch apparently with his son. He started becoming aggressive toward staff. He apparently has required more 1 on 1 supervision. Our nursing staff reports that he was sent here because this incident occurred in front of the state regulation board. The patient denies any complaints to me. He denies being significantly depressed. He denies suicidal ideations. ROS: Constitutional: No fever, no chills. No weakness. Eyes: No discharge. No changes in vision. ENT: No sore throat. No nasal congestion or rhinorrhea. Respiratory: No cough. No shortness of breath. Cardiac: No chest pain, no palpitations. Gastrointestinal: No abdominal pain, no vomiting, no diarrhea. Genitourinary: No hematuria. No dysuria or increased frequency with urination. Musculoskeletal: No back pain. No neck pain. No myalgias or arthralgias. Skin: No rashes. Neurological: No headache. No focal weakness or altered sensation. Past medical history: Bladder cancer with nephrostomy and urostomy. Bilateral knee surgeries, hernias, left hip surgery. Social history: Here by himself. Denies smoking. No alcohol. Physical Exam: General Appearance: Alert, no distress. This patient is responding to questions appropriately and in full sentences. This patient appears well- hydrated and well-nourished. Eyes: Pupils equal and round no pallor or injection. No lid edema, erythema or injection. Respiratory: There are no retractions, lungs are clear to auscultation with good air movement bilaterally. Cardiovascular: Regular rate and rhythm. No murmur. Gastrointestinal: Distended which is normal habitus. Large midline surgical scar periumbilical region to pubis. Nephrostomy bag right lower quadrant, insertion site clean dry and intact. Abdomen is soft and nontender, no masses, bowel sounds normal. No focal tenderness at McBurney's point. No Bustamante sign. Neurological: Motor sensory function is grossly intact. Cranial nerves are normal. Gait is normal. Skin: Warm and dry, no rashes. Musculoskeletal: Neck is supple and nontender. Extremities are symmetrical. All joints range without pain or impingement. Psychiatric: No agitation. No depression. Database: EKG: Imaging: Procedures: Emergency department course: The patient is not suicidal. He denies significant depression. I will evaluate him for possible urinary tract infection. His M1 will be lifted. Plan will be to treat urinary tract infection if needed and sent him back to [facility]. 4:50 p.m., urinalysis significant for urinary tract infection. Plan will be to place the patient on Keflex. He was started on Keflex 500 mg orally in the emergency department. He will be sent back to [facility] with a prescription for this medication. Instructions on follow up with his primary care physician were discussed. Return to emergency department precautions reviewed. He again reiterated to me that he was not suicidal or significantly depressed. His M1 hold was released by myself. He was discharged back to [facility] in good condition. Differential Diagnosis: The differential diagnosis on this patient includes but is not limited to urinary tract infection. Suicidal ideation, acute psychotic break unlikely. This represents a partial list of diagnoses considered. These considerations are based on history, physical exam, past history, reassessment and diagnostic testing. Smoking Status: Current some day smoker Constitutional: Initial Vital Signs Temperature (C) 37.1 C 12/04/16 15:04 Heart Rate 82 12/04/16 15:04 Respiratory Rate 18 12/04/16 15:04 Blood Pressure 126/81 H 12/04/16 15:04 O2 Sat (%) 96 12/04/16 15:04 O2 Delivery Mode Room Air O2 (L/minute) 2 Allergies/Adverse Reactions: No Known Allergies Allergy (Verified 12/04/16 15:03) Home Medications: Medication Instructions Recorded Acetaminophen [Tylenol 325mg (*)] 650 mg PO Q6 PRN 09/16/16 Loperamide HCl [Loperamide] 2 mg PO DAILY PRN 09/16/16 Aspirin EC [Aspirin EC 81 mg (*)] 81 mg PO DAILY tab 09/21/16 Sennosides/Docusate Sodium 1 - 2 tab PO BID tab 09/21/16 [Senokot-S] Acyclovir [Zovirax 400 mg (*)] 800 mg PO 5XD #30 tab 09/24/16 [place] 10-325 Tablet 09/30/16 Prochlorperazine Maleate 09/30/16 Cephalexin [Keflex (*)] 500 mg PO Q6 7 Days 12/04/16 Medical Decision Making - Data Points Medications Given: Discontinued Medications Hydrocodone Bitart/Acetaminophen ([place] 10/325) 1 tab PO EDNOW ONE Stop: 12/04/16 16:28 Last Admin: 12/04/16 16:35 Dose: Not Given Hydrocodone Bitart/Acetaminophen ([place] 5/325) 2 tab PO EDNOW ONE Stop: 12/04/16 16:33 Last Admin: 12/04/16 16:34 Dose: 2 tab Cephalexin HCl (Keflex) 500 mg PO EDNOW ONE PRN Reason: Protocol Stop: 12/04/16 16:57 Last Admin: 12/04/16 17:21 Dose: 500 mg Departure - Departure Disposition: Home, Routine, Self-Care Clinical Impression: Urinary tract infection Condition: Good Instructions: Urinary Tract Infection in Men (ED) Additional Instructions: Read and follow provided instructions. Follow-up with your primary care physician in 2-3 days for re-evaluation. Take medication as prescribed through entire course of treatment. Return to the emergency department for fever, back pain, abdominal pain, vomiting or other serious concerns. Referrals: MAT WHEATLEY [Primary Care Provider] - As per Instructions Prescriptions: Cephalexin [Keflex (*)] 500 mg PO Q6 7 Days
[2016-12-04 15:51] LABS: COLOR YELLOW; LEUKOCYTE ESTERASE,URINE 1+ (NEGATIVE); NITRITE,URINE NEGATIVE (NEGATIVE)
[2016-12-04 16:00] LABS: MUCUS TRACE /lpf (NONE-1+); WBC,URINE 50-182 /hpf (0-3)
[2016-12-04] MEDS ORDERED: HYDROCODONE/APAP 10/325 TAB PO ONE (16:27)
[2016-12-04] MEDS ORDERED: HYDROCODONE/APAP 5/325 TAB ONE (16:30)
[2016-12-04] MEDS ORDERED: HYDROCODONE/APAP 5/325 TAB PO ONE (16:32)
[2016-12-04] MEDS ORDERED: CEPHALEXIN 500 MG CAP PO ONE (16:56)
[2016-12-04 17:33] VITALS: BP 145/96; PULSE 70; RESP 16; TEMP 97.7; O2SAT 95
== END 2016-12-04 17:33 | disposition home or self-care (01) ==
LOC: EDUNIT#
DX: N39.0 Urinary tract infection, site not specified (principal); F17.200 Nicotine dependence, unspecified, uncomplicated; Z79.82 Long term (current) use of aspirin; Z85.51 Personal history of malignant neoplasm of bladder
CPT/HCPCS: 80305

== ENCOUNTER → 2016-12-07 | Outpatient (CLI) | payer OTHER, MEDICAID | LOC: BHLMT 08:30 | PROVIDERS: ATTEND Internal Medicine Interventional Cardiology | DX: I48.91 Unspecified atrial fibrillation (principal); I10 Essential (primary) hypertension; R06.00 Dyspnea, unspecified; R60.9 Edema, unspecified; R07.9 Chest pain, unspecified | CPT/HCPCS: 78452; 93017; 93306; A9500; J2785 ==

== ENCOUNTER 2017-02-13 22:28 | Emergency (ER) | payer OTHER, MEDICAID ==
[2017-02-13 22:37] VITALS: O2SAT 92
--- NOTE | 2017-02-13 22:38 | EDPHY ---
H & P HPI/ROS: HPI CHIEF COMPLAINT: Urostomy bag leaking. HISTORY OF PRESENT ILLNESS: This patient very pleasant 66-year-old male otherwise healthy, does have significant past medical history for bladder cancer status post bladder removal and urostomy, AFib, deconditioning, presents [facility] the emergency room [facility] He presents due to his urostomy bag leaking. He denies any fever vomiting chest pain shortness of breath or significant abdominal pain. Past Medical History: AFib, proximal, bladder cancer, deconditioning Past Surgical History: Bladder removal, urostomy Social History: Denies daily use drugs alcohol tobacco products. Resides at a local [facility], homeless. Family History: Noncontributory ROS REVIEW OF SYSTEMS: A comprehensive 10 point review of systems is otherwise negative aside from elements mentioned in the history of present illness. Exam Constitutional appears well nontoxic, triage nursing summary reviewed, vital signs reviewed, awake/alert. Eyes normal conjunctivae and sclera, EOMI, PERRLA. HENT normal inspection, atraumatic, moist mucus membranes, no epistaxis, neck supple/ no meningismus, no raccoon eyes. Respiratory clear to auscultation bilaterally, normal breath sounds, no respiratory distress, no wheezing. Cardiovascular rate normal, regular rhythm, no murmur, no edema, distal pulses normal. Gastrointestinal urostomy bag located right lower abdomen, waking up the side of the bed, otherwise soft, non-tender, no rebound, no guarding, normal bowel sounds, no distension, no pulsatile mass. Genitourinary no CVA tenderness. Musculoskeletal no midline vertebral tenderness, full range of motion, no calf swelling, no tenderness of extremities, no meningismus, good pulses, neurovascularly intact. Skin pink, warm, & dry, no rash, skin atraumatic. Neurologic awake, alert and oriented x 3, AAOx3, moves all 4 extremities equally, motor intact, sensory intact, CN II-XII intact, normal cerebellar, normal vision, normal speech. Psychiatric normal mood/affect. Heme/Lymph/Immune no lymphadenopathy. Differential Diagnosis: Includes but is not limited to in a particular order urostomy bag leaking, need for urostomy bag change, Medical Decision Making: Plan for this patient he is leaking urostomy bag other lateral aspect of the back. Will replace his bag. Re-evaluation: Source: Patient, EMS - Personal History Tetanus Vaccine Date: 2014 - Medical/Surgical History Hx Asthma: No Hx Chronic Respiratory Disease: No Hx Diabetes: No Hx Cardiac Disease: No Hx Renal Disease: No Hx Cirrhosis: No Hx Alcoholism: No Hx HIV/AIDS: No Hx Splenectomy or Spleen Trauma: No Other PMH: hernia surg. bilateral knee surgeries, left hip surgery, appy, bladder CA w nephrostomy & urostomy - Social History Smoking Status: Current some day smoker Allergies/Adverse Reactions: No Known Allergies Allergy (Verified 12/04/16 15:03) Home Medications: Medication Instructions Recorded Acetaminophen [Tylenol 325mg (*)] 650 mg PO Q6 PRN 09/16/16 Loperamide HCl [Loperamide] 2 mg PO DAILY PRN 09/16/16 Aspirin EC [Aspirin EC 81 mg (*)] 81 mg PO DAILY tab 09/21/16 Sennosides/Docusate Sodium 1 - 2 tab PO BID tab 09/21/16 [Senokot-S] Acyclovir [Zovirax 400 mg (*)] 800 mg PO 5XD #30 tab 09/24/16 [place] 10-325 Tablet 09/30/16 Prochlorperazine Maleate 09/30/16 Cephalexin [Keflex (*)] 500 mg PO Q6 7 Days cap 12/04/16 Departure - Departure Disposition: Home, Routine, Self-Care Clinical Impression: Attention to urostomy Condition: Good Instructions: Urostomy Care (ED) Additional Instructions: 1. Return emergency room if develops worsening symptoms questions or concerns.
--- NOTE | 2017-02-13 22:38 | EDPHY ---
H & P HPI/ROS: HPI CHIEF COMPLAINT: Urostomy bag leaking. HISTORY OF PRESENT ILLNESS: This patient very pleasant 66-year-old male otherwise healthy, does have significant past medical history for bladder cancer status post bladder removal and urostomy, AFib, deconditioning, presents to the emergency room by EMS from a local [facility]. He presents due to his urostomy bag leaking. He denies any fever vomiting chest pain shortness of breath or significant abdominal pain. Past Medical History: AFib, proximal, bladder cancer, deconditioning Past Surgical History: Bladder removal, urostomy Social History: Denies daily use drugs alcohol tobacco products. Resides at a local [facility], homeless. Family History: Noncontributory ROS REVIEW OF SYSTEMS: A comprehensive 10 point review of systems is otherwise negative aside from elements mentioned in the history of present illness. Exam Constitutional appears well nontoxic, triage nursing summary reviewed, vital signs reviewed, awake/alert. Eyes normal conjunctivae and sclera, EOMI, PERRLA. HENT normal inspection, atraumatic, moist mucus membranes, no epistaxis, neck supple/ no meningismus, no raccoon eyes. Respiratory clear to auscultation bilaterally, normal breath sounds, no respiratory distress, no wheezing. Cardiovascular rate normal, regular rhythm, no murmur, no edema, distal pulses normal. Gastrointestinal urostomy bag located right lower abdomen, waking up the side of the bed, otherwise soft, non-tender, no rebound, no guarding, normal bowel sounds, no distension, no pulsatile mass. Genitourinary no CVA tenderness. Musculoskeletal no midline vertebral tenderness, full range of motion, no calf swelling, no tenderness of extremities, no meningismus, good pulses, neurovascularly intact. Skin pink, warm, & dry, no rash, skin atraumatic. Neurologic awake, alert and oriented x 3, AAOx3, moves all 4 extremities equally, motor intact, sensory intact, CN II-XII intact, normal cerebellar, normal vision, normal speech. Psychiatric normal mood/affect. Heme/Lymph/Immune no lymphadenopathy. Differential Diagnosis: Includes but is not limited to in a particular order urostomy bag leaking, need for urostomy bag change, Medical Decision Making: Plan for this patient he is leaking urostomy bag other lateral aspect of the back. Will replace his bag. Re-evaluation: Source: Patient, EMS - Personal History Tetanus Vaccine Date: 2014 - Medical/Surgical History Hx Asthma: No Hx Chronic Respiratory Disease: No Hx Diabetes: No Hx Cardiac Disease: No Hx Renal Disease: No Hx Cirrhosis: No Hx Alcoholism: No Hx HIV/AIDS: No Hx Splenectomy or Spleen Trauma: No Other PMH: hernia surg. bilateral knee surgeries, left hip surgery, appy, bladder CA w nephrostomy & urostomy - Social History Smoking Status: Current some day smoker Allergies/Adverse Reactions: No Known Allergies Allergy (Verified 12/04/16 15:03) Home Medications: Medication Instructions Recorded Acetaminophen [Tylenol 325mg (*)] 650 mg PO Q6 PRN 09/16/16 Loperamide HCl [Loperamide] 2 mg PO DAILY PRN 09/16/16 Aspirin EC [Aspirin EC 81 mg (*)] 81 mg PO DAILY tab 09/21/16 Sennosides/Docusate Sodium 1 - 2 tab PO BID tab 09/21/16 [Senokot-S] Acyclovir [Zovirax 400 mg (*)] 800 mg PO 5XD #30 tab 09/24/16 [place] 10-325 Tablet 09/30/16 Prochlorperazine Maleate 09/30/16 Cephalexin [Keflex (*)] 500 mg PO Q6 7 Days cap 12/04/16 Departure - Departure Disposition: Home, Routine, Self-Care Clinical Impression: Attention to urostomy Condition: Good Instructions: Urostomy Care (ED) Additional Instructions: 1. Return emergency room if develops worsening symptoms questions or concerns.
[2017-02-13 23:30] VITALS: BP 151/90; PULSE 95; RESP 16; TEMP 98.6
== END 2017-02-13 23:34 | disposition home or self-care (01) ==
LOC: EDUNIT#
DX: Z43.6 Encounter for attention to other artificial openings of urinary tract (principal); F17.200 Nicotine dependence, unspecified, uncomplicated; Z85.51 Personal history of malignant neoplasm of bladder; Z79.82 Long term (current) use of aspirin; Y73.2 Prosthetic and other implants, materials and accessory gastroenterology and urology devices associated with adverse incidents

== ENCOUNTER 2017-02-14 07:38 | Emergency (ER) | payer OTHER, MEDICAID ==
--- NOTE | 2017-02-14 07:58 | EDPHY ---
H & P Stated Complaint: rectal bleeding Time Seen by Provider: 02/14/17 07:47 HPI/ROS: CHIEF COMPLAINT: Questionable rectal bleeding HISTORY OF PRESENT ILLNESS: The patient presents to the ED with questionable hematochezia. The patient is currently homeless living in a nursing home. He has a history of bladder cancer and is status post resection with creation of an ileal conduit. The patient has been seen in the emergency department a few times recently with leaking from his urostomy bag. The patient was last seen yesterday. The patient denies any acute abdominal pain. The patient denies fever, vomiting, chills or back pain. The patient denies anticoagulant use. The patient does have a history of atrial fibrillation. The patient reports a remote history of hemorrhoids. REVIEW OF SYSTEMS: A comprehensive 10 point review of systems is otherwise negative aside from elements mentioned in the history of present illness. Source: Patient Exam Limitations: No limitations - Personal History Current Tetanus/Diphtheria Vaccine: Yes Current Tetanus Diphtheria and Acellular Pertussis (TDAP): Yes Tetanus Vaccine Date: 2014 - Medical/Surgical History Hx Asthma: No Hx Chronic Respiratory Disease: No Hx Diabetes: No Hx Cardiac Disease: No Hx Renal Disease: No Hx Cirrhosis: No Hx Alcoholism: No Hx HIV/AIDS: No Hx Splenectomy or Spleen Trauma: No Other PMH: hernia surg. bilateral knee surgeries, left hip surgery, appy, bladder CA w nephrostomy & urostomy - Social History Smoking Status: Current some day smoker - Physical Exam Exam: General Appearance: Obese male, no acute distress Eyes: Pupils equal and round no pallor or injection ENT, Mouth: Mucous membranes moist Respiratory: There are no retractions, lungs are clear to auscultation Cardiovascular: Regular rate and rhythm Gastrointestinal: Abdomen is soft and nontender, no masses, bowel sounds normal , ileal conduit stoma appears pink and well perfused. Corina colored urine in urostomy bag Neurological: A&O, normal motor function, normal sensory exam, normal cranial nerves Rectal: Brown stool present, no active bleeding noted Skin: Warm and dry, no rashes Musculoskeletal: Neck is supple nontender Extremities: symmetrical, full range of motion Constitutional: Initial Vital Signs Temperature (C) 36.8 C 02/14/17 07:48 Heart Rate 101 H 02/14/17 07:48 Respiratory Rate 18 02/14/17 07:48 Blood Pressure 140/90 H 02/14/17 07:48 O2 Sat (%) 91 L 02/14/17 07:48 O2 Delivery Mode Room Air Allergies/Adverse Reactions: No Known Allergies Allergy (Verified 02/13/17 22:36) Home Medications: Medication Instructions Recorded [place] 10-325 Tablet 09/30/16 Medical Decision Making ED Course/Re-evaluation: I reviewed the patient's past medical records including his most recent ED visits from yesterday and mid November. The patient has no evidence of active rectal bleeding or lower GI bleeding on his initial exam. He is hemodynamically stable. The patient's physical exam demonstrates no evidence of GI bleeding. His hematocrit is stable. His Hemoccult is negative. The patient was observed in the emergency department for 2 hours without evidence of any obvious bleeding. He has a benign abdominal examination. At this point time I do feel he can be discharged from the emergency department. Differential Diagnosis: Differential diagnosis considered includes upper GI bleed, lower GI bleed, bleeding external hemorrhoid, hypovolemia - Data Points Laboratory Results: Laboratory Results 02/14/17 07:30 02/14/17 07:30 02/14/17 02/14/17 02/14/17 07:30 07:30 07:30 WBC 8.42 10^3/uL 10^3/uL (3.80-9.50) RBC 4.65 10^6/uL 10^6/uL (4.40-6.38) Hgb 14.1 g/dL g/dL (13.7-17.5) Hct 43.2 % % (40.0-51.0) MCV 92.9 fL fL (81.5-99.8) MCH 30.3 pg pg (27.9-34.1) MCHC 32.6 g/dL g/dL (32.4-36.7) RDW 16.1 % H % (11.5-15.2) Plt Count 278 10^3/uL 10^3/uL (150-400) MPV 9.5 fL fL (8.7-11.7) Neut % (Auto) 68.0 % % (39.3-74.2) Lymph % (Auto) 19.6 % % (15.0-45.0) [place] % (Auto) 10.2 % % (4.5-13.0) Eos % (Auto) 1.1 % % (0.6-7.6) Baso % (Auto) 0.7 % % (0.3-1.7) Nucleat RBC Rel Count 0.0 % % (0.0-0.2) Absolute Neuts (auto) 5.73 10^3/uL 10^3/uL (1.70-6.50) Absolute Lymphs (auto) 1.65 10^3/uL 10^3/uL (1.00-3.00) Absolute Monos (auto) 0.86 10^3/uL H 10^3/uL (0.30-0.80) Absolute Eos (auto) 0.09 10^3/uL 10^3/uL (0.03-0.40) Absolute Basos (auto) 0.06 10^3/uL 10^3/uL (0.02-0.10) Absolute Nucleated RBC 0.00 10^3/uL 10^3/uL (0-0.01) Immature Gran % 0.4 % % (0.0-1.1) Immature Gran # 0.03 10^3/uL 10^3/uL (0.00-0.10) Sodium 147 mEq/L H mEq/L (134-144) Potassium 3.5 mEq/L mEq/L (3.5-5.2) Chloride 105 mEq/L mEq/L (97-110) Carbon Dioxide 26 mEq/l mEq/l (22-31) Anion Gap 16 mEq/L mEq/L (8-16) BUN 31 mg/dL H mg/dL (7-23) Creatinine 1.1 mg/dL mg/dL (0.7-1.3) Estimated GFR > 60 Glucose 97 mg/dL mg/dL (70-100) Calcium 9.5 mg/dL mg/dL (8.5-10.4) Stool Occult Bld Scrn NEGATIVE (NEGATIVE) Departure - Departure Disposition: Home, Routine, Self-Care Clinical Impression: History of bladder cancer Condition: Good Instructions: Abdominal Pain (ED) Additional Instructions: 1. There is no evidence of bleeding noted on your exam or laboratory testing today. 2. Please follow up with your primary care provider as scheduled. 3. Please return to the emergency department for the development of severe pain , recurrent bleeding or other concerns. Referrals: [facility],. [Clinic] - As per Instructions
[2017-02-14 08:00] LABS: PLATELET COUNT 278 10^3/uL (150-400)
[2017-02-14 10:10] VITALS: BP 134/88; PULSE 85; RESP 16; TEMP 98.4; O2SAT 96
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
== END 2017-02-14 10:02 | disposition home or self-care (01) ==
LOC: EDUNIT#
DX: Z85.51 Personal history of malignant neoplasm of bladder (principal); F17.200 Nicotine dependence, unspecified, uncomplicated

== ENCOUNTER 2017-02-16 00:23 | Emergency (ER) | payer OTHER, MEDICAID ==
--- NOTE | 2017-02-16 00:27 | EDPHY ---
H & P HPI/ROS: HPI CHIEF COMPLAINT: Urostomy bag leaking. HISTORY OF PRESENT ILLNESS: Patient very pleasant 66-year-old male, familiar to myself he was here recently in the emergency room for urostomy bag leaking. This bag was changed. Presents back to the emergency room the homeless senior living with his bag leaking again. Denies any pain. Denies fever denies vomiting. Denies abdominal trauma. Past Medical History: Bladder cancer, urostomy. Past Surgical History: Bladder cancer resection, urostomy diversion Social History: Denies daily use drugs alcohol tobacco products. Homeless. Family History: Noncontributory. ROS REVIEW OF SYSTEMS: A comprehensive 10 point review of systems is otherwise negative aside from elements mentioned in the history of present illness. Exam Constitutional triage nursing summary reviewed, vital signs reviewed, awake/ alert. Eyes normal conjunctivae and sclera, EOMI, PERRLA. HENT normal inspection, atraumatic, moist mucus membranes, no epistaxis, neck supple/ no meningismus, no raccoon eyes. Respiratory clear to auscultation bilaterally, normal breath sounds, no respiratory distress, no wheezing. Cardiovascular rate normal, regular rhythm, no murmur, no edema, distal pulses normal. Gastrointestinal right anterior abdominal wall has a urostomy site. Back leaking out of the lateral edge. soft, non-tender, no rebound, no guarding, normal bowel sounds, no distension, no pulsatile mass. Genitourinary no CVA tenderness. Musculoskeletal no midline vertebral tenderness, full range of motion, no calf swelling, no tenderness of extremities, no meningismus, good pulses, neurovascularly intact. Skin pink, warm, & dry, no rash, skin atraumatic. Neurologic awake, alert and oriented x 3, AAOx3, moves all 4 extremities equally, motor intact, sensory intact, CN II-XII intact, normal cerebellar, normal vision, normal speech. Psychiatric normal mood/affect. Heme/Lymph/Immune no lymphadenopathy. Differential Diagnosis: Includes but is not limited to in a particular order, urostomy bag change, urostomy bag leaking, need for new urostomy bag. Medical Decision Making: Plan for this patient changes her ostomy bag. Reestablish to see on any can be discharged. Urostomy changed. NO leaking. Okay for d/c. Source: Patient, EMS - Personal History Tetanus Vaccine Date: 2015 - Medical/Surgical History Hx Asthma: No Hx Chronic Respiratory Disease: No Hx Diabetes: No Hx Cardiac Disease: No Hx Renal Disease: No Hx Cirrhosis: No Hx Alcoholism: No Hx HIV/AIDS: No Hx Splenectomy or Spleen Trauma: No Other PMH: hernia surg. bilateral knee surgeries, left hip surgery, appy, bladder CA w nephrostomy & urostomy - Social History Smoking Status: Current some day smoker Constitutional: Initial Vital Signs Temperature (C) 36.7 C 02/16/17 00:35 Heart Rate 77 02/16/17 00:35 Respiratory Rate 18 02/16/17 00:35 Blood Pressure 126/86 H 02/16/17 00:35 O2 Sat (%) 92 02/16/17 00:35 O2 Delivery Mode Room Air Allergies/Adverse Reactions: No Known Allergies Allergy (Verified 02/13/17 22:36) Home Medications: Medication Instructions Recorded [place] 10-325 Tablet 09/30/16 Cymbalta 02/16/17 Departure - Departure Disposition: Home, Routine, Self-Care Clinical Impression: Complication of urostomy Condition: Good Instructions: Urostomy Care (ED)
[2017-02-16 00:39] VITALS: RESP 18; O2SAT 92
[2017-02-16 01:12] VITALS: BP 117/82; PULSE 76; TEMP 97.7
== END 2017-02-16 01:58 | disposition home or self-care (01) ==
LOC: EDUNIT#
DX: T83.038A Leakage of other urinary catheter, initial encounter (principal); F17.200 Nicotine dependence, unspecified, uncomplicated; Z85.51 Personal history of malignant neoplasm of bladder; Y82.8 Other medical devices associated with adverse incidents

== ENCOUNTER 2017-02-21 22:57 | Emergency (ER) | payer OTHER, MEDICAID ==
--- NOTE | 2017-02-21 23:02 | EDPHY ---
H & P HPI/ROS: HPI CHIEF COMPLAINT: Urostomy bag leaking. HISTORY OF PRESENT ILLNESS: This patient very pleasant 66-year-old male, well known to myself as well as the emergency room I seen him over the past few weeks with the urostomy bag leaking. He has a urostomy site located right lower quadrant abdomen from a ureteral diversion due to bladder cancer. He is homeless staying at a nursing home. According to the patient they have ordered urostomy bags for him at the nursing home they have not come in. This is the 3rd time in the emergency room to have this changed. No other complaints. Past Medical History: Bladder cancer Past Surgical History: Bladder resection and urostomy diversion Social History: Homeless, denies daily use of drugs alcohol tobacco. Family History: Noncontributory ROS REVIEW OF SYSTEMS: A comprehensive 10 point review of systems is otherwise negative aside from elements mentioned in the history of present illness. Exam Constitutional appears well nontoxic, triage nursing summary reviewed, vital signs reviewed, awake/alert. Eyes normal conjunctivae and sclera, EOMI, PERRLA. HENT normal inspection, atraumatic, moist mucus membranes, no epistaxis, neck supple/ no meningismus, no raccoon eyes. Respiratory clear to auscultation bilaterally, normal breath sounds, no respiratory distress, no wheezing. Cardiovascular rate normal, regular rhythm, no murmur, no edema, distal pulses normal. Gastrointestinal right lower quadrant urostomy diversion bag leaking. Otherwise soft nontender no signs of infection, soft, non-tender, no rebound, no guarding, normal bowel sounds, no distension, no pulsatile mass. Genitourinary no CVA tenderness. Musculoskeletal no midline vertebral tenderness, full range of motion, no calf swelling, no tenderness of extremities, no meningismus, good pulses, neurovascularly intact. Skin pink, warm, & dry, no rash, skin atraumatic. Neurologic awake, alert and oriented x 3, AAOx3, moves all 4 extremities equally, motor intact, sensory intact, CN II-XII intact, normal cerebellar, normal vision, normal speech. Psychiatric normal mood/affect. Heme/Lymph/Immune no lymphadenopathy. Differential Diagnosis: Includes but is not limited to: Need for urostomy bag change. Need for new urostomy bag Medical Decision Making: Plan for this patient changes urostomy. And then he can be discharged back to his nursing home. His urostomy site looks clean, not infected no wound dehiscence. Bag leaking and needs a new bag. Source: Patient, EMS - Personal History Tetanus Vaccine Date: 2014 - Medical/Surgical History Hx Asthma: No Hx Chronic Respiratory Disease: No Hx Diabetes: No Hx Cardiac Disease: No Hx Renal Disease: No Hx Cirrhosis: No Hx Alcoholism: No Hx HIV/AIDS: No Hx Splenectomy or Spleen Trauma: No Other PMH: hernia surg. bilateral knee surgeries, left hip surgery, appy, bladder CA w nephrostomy & urostomy - Social History Smoking Status: Current some day smoker Allergies/Adverse Reactions: No Known Allergies Allergy (Verified 02/13/17 22:36) Home Medications: Medication Instructions Recorded [place] 10-325 Tablet 09/30/16 Cymbalta 02/16/17 Departure - Departure Disposition: Home, Routine, Self-Care Clinical Impression: Complication of urostomy Condition: Good Instructions: Urostomy Care (ED) Referrals: Patient,NotPresent [Primary Care Provider] - As per Instructions
[2017-02-21 23:04] VITALS: BP 150/89; PULSE 84; RESP 20; TEMP 98.2; O2SAT 93
== END 2017-02-21 23:50 | disposition home or self-care (01) ==
LOC: EDUNIT#
DX: N99.538 Other complication of continent stoma of urinary tract (principal); F17.200 Nicotine dependence, unspecified, uncomplicated; Z85.51 Personal history of malignant neoplasm of bladder

== ENCOUNTER 2017-02-28 22:31 | Emergency (ER) | payer OTHER, MEDICAID ==
--- NOTE | 2017-02-28 23:01 | EDPHY ---
H & P Stated Complaint: leaking ostomy bag HPI/ROS: HPI CHIEF COMPLAINT: Ostomy leaking. HISTORY OF PRESENT ILLNESS: Patient is a 66-year-old male homeless, very familiar to myself as a seen multiple times for the same issue. He has a urostomy located in the right lower quadrant. This is status post bladder cancer. He presents emergency room for urostomy bag change as the wafer is leaking at the lateral aspect. Past Medical History: Bladder cancer Past Surgical History: Bladder resection , ureteral diversion Social History: Denies daily use drugs alcohol tobacco products. Homeless. Resides at a local jail. Family History: Noncontributory ROS REVIEW OF SYSTEMS: A comprehensive 10 point review of systems is otherwise negative aside from elements mentioned in the history of present illness. Exam Constitutional triage nursing summary reviewed, vital signs reviewed, awake/ alert. Eyes normal conjunctivae and sclera, EOMI, PERRLA. HENT normal inspection, atraumatic, moist mucus membranes, no epistaxis, neck supple/ no meningismus, no raccoon eyes. Respiratory clear to auscultation bilaterally, normal breath sounds, no respiratory distress, no wheezing. Cardiovascular rate normal, regular rhythm, no murmur, no edema, distal pulses normal. Gastrointestinal abdomen is nontender right lower quadrant urostomy region. Not infected. No significant redness. No wound dehiscence. No significant protrusion of the ostomy, need for new ostomy bag soft, non-tender, no rebound , no guarding, normal bowel sounds, no distension, no pulsatile mass. Genitourinary no CVA tenderness. Musculoskeletal no midline vertebral tenderness, full range of motion, no calf swelling, no tenderness of extremities, no meningismus, good pulses, neurovascularly intact. Skin pink, warm, & dry, no rash, skin atraumatic. Neurologic awake, alert and oriented x 3, AAOx3, moves all 4 extremities equally, motor intact, sensory intact, CN II-XII intact, normal cerebellar, normal vision, normal speech. Psychiatric normal mood/affect. Heme/Lymph/Immune no lymphadenopathy. Differential Diagnosis: Need for new ostomy bag, ostomy bag change, need for new ostomy Medical Decision Making: Plan for this patient change ostomy bag. Source: Patient - Personal History Current Tetanus/Diphtheria Vaccine: Yes Current Tetanus Diphtheria and Acellular Pertussis (TDAP): Yes Tetanus Vaccine Date: 2014 - Medical/Surgical History Hx Asthma: No Hx Chronic Respiratory Disease: No Hx Diabetes: No Hx Cardiac Disease: No Hx Renal Disease: Yes Hx Cirrhosis: No Hx Alcoholism: No Hx HIV/AIDS: No Hx Splenectomy or Spleen Trauma: No Other PMH: hernia surg. bilateral knee surgeries, left hip surgery, appy, bladder CA w nephrostomy & urostomy, - Social History Smoking Status: Current some day smoker Constitutional: Initial Vital Signs Temperature (C) 36.6 C 02/28/17 22:36 Heart Rate 83 02/28/17 22:36 Respiratory Rate 83 H 02/28/17 22:36 Blood Pressure 135/91 H 02/28/17 22:36 O2 Sat (%) 92 02/28/17 22:36 O2 Delivery Mode Room Air Allergies/Adverse Reactions: No Known Allergies Allergy (Verified 02/28/17 22:35) Home Medications: Medication Instructions Recorded [place] 10-325 Tablet 09/30/16 Cymbalta 02/16/17 Departure - Departure Disposition: Home, Routine, Self-Care Clinical Impression: Attention to urostomy Condition: Good Instructions: Urostomy Care (ED) Additional Instructions: 1. Return emergency room if he develops worsening symptoms. I do recommend he get outpatient care for your urostomy. Referrals: NONE *PRIMARY CARE P,. [Primary Care Provider] - As per Instructions
[2017-02-28 23:58] VITALS: BP 136/93; PULSE 87; RESP 17; TEMP 98.1; O2SAT 96
--- NOTE | 2017-03-01 16:54 | ASMTCMCOM ---
CM Note CM Note Notes: Case Management received call today from Lisandra at [facility] EXT [id number] regarding care coordination for this patient who visited the ER last night. Patient is well known to this ER and CM. He recently established care at [facility] in [place] . Patient has visited this ER numerous times over the past several months, most recently related to issues with his ostomy tube. Patient is currently homeless and had most recently been a resident at [facility] prior to being "asked to leave" earlier this month. Prior to this, patient had an apartment at [facility] in [place] (program through [facility]). CM will do our best to assist this patient with resources and coordinate care with Mona ([facility]) when he presents to the ER. Patient should also be directed to follow up with the [facility] whenever he visits the ER Date Signed: 03/01/2017 04:53 PM Electronically Signed By:Bella Nevarez RN
== END 2017-03-01 00:11 | disposition home or self-care (01) ==
DX: Z43.6 Encounter for attention to other artificial openings of urinary tract (principal); F17.200 Nicotine dependence, unspecified, uncomplicated; Z85.51 Personal history of malignant neoplasm of bladder; Y73.2 Prosthetic and other implants, materials and accessory gastroenterology and urology devices associated with adverse incidents

== ENCOUNTER 2017-04-09 18:23 | Emergency (ER) | payer OTHER, MEDICAID ==
[2017-04-09 18:36] VITALS: BP 152/100; PULSE 90; RESP 18; TEMP 98.1; O2SAT 94
--- NOTE | 2017-04-09 18:41 | EDPHY ---
H & P Time Seen by Provider: 04/09/17 18:30 HPI/ROS: CHIEF COMPLAINT: Urostomy bag broke HISTORY OF PRESENT ILLNESS: The patient is a 66-year-old male status post bladder cancer and cysto prostatectomy who presents to the emergency department with his urostomy bag malfunctioning. The patient went to change his bag and the disc pulled off the skin. He does not have this piece of equipment at home. He states his urostomy has been working well. He has no complaints of abdominal pain. No recent fevers or chills. REVIEW OF SYSTEMS: My complete review of systems is negative except as mentioned in the HPI. Past Medical/Surgical History: Includes bladder cancer, hydronephrosis, urinary tract infection, paroxysmal atrial fibrillation, herpes zoster, chronic hypoxemic respiratory failure Past surgical history: Includes nephrostomy, urostomy, cystoprostatectomy The social history: The patient smokes Smoking Status: Current some day smoker Physical Exam: GENERAL: Well-appearing, in no acute distress, alert. HEENT: Eyes normal to inspection, no signs of dehydration. RESPIRATORY: Clear to auscultation bilaterally, no rales, rhonchi or wheezing. CVS: Regular rate and rhythm, no rubs, murmurs, or gallops. ABDOMEN: Soft, nontender, nondistended, no organomegaly. Patient has a broken urostomy bag. There is urine drainage. BACK: Normal to inspection, no CVA tenderness. SKIN: Normal color, no rash, warm, dry. No pallor. EXTREMITIES: No pedal edema, no calf tenderness, no Homans sign or cords, no joint swelling. NEURO/PSYCH: Alert and oriented, normal mood and affect, normal motor sensory exam. Constitutional: Initial Vital Signs Temperature (C) 36.7 C 04/09/17 18:27 Heart Rate 90 04/09/17 18:27 Respiratory Rate 18 04/09/17 18:27 Blood Pressure 152/100 H 04/09/17 18:27 O2 Sat (%) 94 04/09/17 18:27 O2 Delivery Mode Room Air Allergies/Adverse Reactions: No Known Allergies Allergy (Verified 04/09/17 18:27) Home Medications: Medication Instructions Recorded [place] 10-325 Tablet 09/30/16 Cymbalta 02/16/17 Medical Decision Making ED Course/Re-evaluation: In the emergency department I discussed possible etiologies with the patient. I answered all his questions. I obtained a new urostomy get from supply. This was replaced. The patient tolerated the transfer well. Patient was given warnings prior to leaving. He will return with worsening symptoms. Differential Diagnosis: My differential includes but is not limited to urostomy bag malfunction, urinary tract infection, pyelonephritis Departure - Departure Disposition: Home, Routine, Self-Care Clinical Impression: Encounter for counseling for urostomy management, Complication of urostomy Condition: Good Instructions: Urostomy Care (ED) Referrals: Silvano Mercedes MD [Medical Doctor] - 5-7 days, if not improved
== END 2017-04-09 19:10 | disposition home or self-care (01) ==
DX: N99.522 Malfunction of incontinent external stoma of urinary tract (principal); F17.200 Nicotine dependence, unspecified, uncomplicated; Z85.51 Personal history of malignant neoplasm of bladder

== ENCOUNTER 2017-04-16 13:25 | Emergency (ER) | payer OTHER, MEDICAID ==
[2017-04-16 13:42] VITALS: TEMP 97.9
--- NOTE | 2017-04-16 14:10 | EDPHY ---
H & P Stated Complaint: urostomy bag broke and is leaking HPI/ROS: CHIEF COMPLAINT: "Urostomy bag leaking" HISTORY OF PRESENT ILLNESS: The patient is a 66 y/o male with a history of bladder cancer that required a nephrostomy and urostomy, complaining of his urostomy bag leaking. On 04/09/17, 7 days ago, he presented to the ED after the disc that adheres the urostomy bag to his abdomen had fallen off. They were able to replace the disc during this visit and he was discharged home. Since this ED visit the urostomy has fallen off twice. He has mild abdominal pain. Denies bowel complaints, chest pain, shortness of breath, fever or other pertinent symptoms. Prior medical records reviewed including ED visit with Dr. Ray on 04/09/17. REVIEW OF SYSTEMS: A ten point review of systems was performed and is negative with the exception of the items mentioned in the HPI. Past medical history: Bladder cancer with nephrostomy and urostomy Past surgical history: Appendectomy Hernia surgery Bilateral knee surgery Left hip surgery Family history: Denies Social history: Transient Single Retired General Appearance: Alert. Vital signs reviewed. Eyes: Pupils equal and round, no conjunctival injection, no discharge. Anicteric. ENT, Mouth: Mucous membranes are moist, no oropharyngeal erythema or edema. Neck: No lymphadenopathy. Respiratory: Lungs are clear to auscultation; no wheezes, rales, or rhonchi. Cardiovascular: Regular rate and rhythm; no murmur, rub, or gallop. Gastrointestinal: Urostomy in place. Disc that holds urostomy in place is not adherent to his skin. The stoma looks pink and good. Abdomen is soft and nontender, no masses or organomegaly, bowel sounds normal. Skin: Warm and dry, no rashes on exposed skin, normal color. Back: Nontender to palpation over the thoracolumbar spine. No CVAT. Extremities: No lower extremity edema, no calf tenderness or swelling. Neurological: Alert and oriented. Moving all four extremities easily and equally. Psychiatric: Normal affect. - Personal History Current Tetanus/Diphtheria Vaccine: Yes Tetanus Vaccine Date: 2014 - Medical/Surgical History Hx Asthma: No Hx Chronic Respiratory Disease: No Hx Diabetes: No Hx Cardiac Disease: No Hx Renal Disease: Yes Hx Cirrhosis: No Hx Alcoholism: No Hx HIV/AIDS: No Hx Splenectomy or Spleen Trauma: No Other PMH: hernia surg. bilateral knee surgeries, left hip surgery, appy, bladder CA w nephrostomy & urostomy, - Social History Smoking Status: Former smoker Constitutional: Initial Vital Signs Temperature (C) 36.6 C 04/16/17 13:40 Heart Rate 86 04/16/17 13:40 Respiratory Rate 18 04/16/17 13:40 Blood Pressure 149/108 H 04/16/17 13:40 O2 Sat (%) 94 04/16/17 13:40 O2 Delivery Mode Room Air Allergies/Adverse Reactions: No Known Allergies Allergy (Verified 04/16/17 13:39) Home Medications: Medication Instructions Recorded [place] 10-325 Tablet 09/30/16 Cymbalta 02/16/17 Medical Decision Making ED Course/Re-evaluation: The patient is a 66 y/o male with a history of bladder cancer that required a nephrostomy and urostomy, presenting with a urostomy that is leaking. On , he was seen in the ED for similar symptoms. On exam the disc that holds the urostomy in place adherent. The stoma looks pink and good. 1452: Reassessed patient. His urostomy bag has been replaced by nursing staff and appears to be strongly adherent. I have advised him to follow up with Dr. Mercedes, urology surgeon, regarding care of his urostomy and with wound care/ stoma clinic. Return precautions provided; patient is comfortable with this plan. I do not suspect a problem with the stoma itself. Drainage is normal. I do not find evidence of infection such as UTI or cellulitis. He is noted to be hypertensive with a triage BP of 149/108 and a DC BP of 144/ 93. FU with PCP advised. Departure - Departure Disposition: Home, Routine, Self-Care Clinical Impression: Complication of urostomy Condition: Good Instructions: Urostomy Care (ED) Additional Instructions: Follow up with Dr. Mercedes, urologist surgeon, in the next 5-7 days for urostomy management. Return to the ED if you experience complication of urostomy, chest pain, shortness of breath, abdominal pain, fever or other worsening of your symptoms. Referrals: MAT WHEATLEY [Primary Care Provider] - As per Instructions Silvano Mercedes MD [Medical Doctor] - As per Instructions Report Scribed for: Joan Shaikh Report Scribed by: Teresa Garcia Date of Report: 04/16/17 Time of Report: 14:23 Physician Review and Approval Statement: 04/16/17 14:10 Portions of this note were transcribed by the medical administrative. I, Dr. Joan Shaikh, personally performed the history, physical exam, and medical decision- making; and confirmed the accuracy of the information in the transcribed note.
[2017-04-16 14:59] VITALS: BP 144/93; PULSE 75; RESP 16; O2SAT 91
== END 2017-04-16 15:05 | disposition home or self-care (01) ==
DX: T83.038A Leakage of other urinary catheter, initial encounter (principal); Z85.51 Personal history of malignant neoplasm of bladder; Z87.891 Personal history of nicotine dependence; Y73.2 Prosthetic and other implants, materials and accessory gastroenterology and urology devices associated with adverse incidents

== ENCOUNTER 2017-08-24 10:53 | Inpatient (IN) | payer OTHER, MEDICAID ==
--- NOTE | 2017-08-24 10:58 | EDPHY ---
HPI/HX/ROS/PE/MDM Narrative: CHIEF COMPLAINT: Syncope, weakness HPI: The patient is a transient 66 y/o male with a history of bladder cancer with urostomy who arrives via EMS after a witnessed syncopal episode this morning. Per EMS, he was standing in line at the [facility] when he suddenly collapse. They arrived to find him pale, diaphoretic, and weak with a BP of 90/60 and HR of 120. They noted there was no bag on his urostomy and it was leaking malodorous urine directly onto his shirt. He complained to them of feeling weak, but is answering few questions upon arrival here. He does mention bilateral hip and knee pain during assessment and says he ran out of urostomy bags. He is a poor historian and further information is limited at this time. REVIEW OF SYSTEMS: Difficult to obtain as patient is a poor historian. PMH: Bladder cancer with urostomy; multiple orthopedic surgeries SOCIAL HISTORY: Transient, sometimes lives in [place]. Single. PHYSICAL EXAM: General:Patient is somnolent, minimal verbal responses, chronically-ill appearing. ENT:Eyes are normal to inspection. ENT inspection normal. Neck: Normal inspection. Full range of motion. Respiratory:No respiratory distress. Breath sounds normal bilaterally. Cardiovascular: Regular rate and rhythm. Strong peripheral pulses. Normal cap refill. Abdomen:The abdomen is nontender to palpation. There are no peritoneal signs. Open stoma on right side of abdomen. Well-healed midline incision. Back: Normal to inspection. No tenderness to palpation. Skin: Normal color. No rash. Warm and dry. Extremities: Normal appearance. Full range of motion. Neuro: Oriented x3. Normal motor function. Normal sensory function. ED Course: This is a chronically-ill appearing 66 y/o male with history of bladder cancer and urostomy who presents following a witnessed syncopal episode this morning. He has been tachycardic, hypotensive, and minimally engaged in assessment since EMS contact. He does complain of weakness and bilateral hip and knee pain. He has an open urostomy without a bag that is draining malodorous urine onto his shirt. Presentation consistent with sepsis and 3L IV NS ordered. Plan for IV, labs, UA, cultures, EKG, chest x-ray. Anticipate admission. Labs show elevated WBC of 19 and creatinine of 1.6. He continues to be hypotensive, but tachycardia has improved. We're unable to collect a urine sample and will send a swab instead. 1gm IV Ceftriaxone ordered for suspected urosepsis. Spoke with hospitalist service. Dr. Ramirez accepts admission. - Data Points Imaging Results: Imaging Impressions Chest X-Ray 08/24/17 10:58 Impression: 1. No definite pneumonia. 2. Hypoventilation, bibasilar atelectasis, and chronic mild airways disease similar to 2017. Imaging: I viewed and interpreted images myself Laboratory Results: Laboratory Results 08/24/17 11:09 08/24/17 11:09 08/24/17 08/24/17 08/24/17 11:09 11: 11:09 WBC 19.21 10^3/uL H 10^3/uL (3.80-9.50) RBC 4.81 10^6/uL 10^6/uL (4.40-6.38) Hgb 13.5 g/dL L g/dL (13.7-17.5) Hct 41.0 % % (40.0-51.0) MCV 85.2 fL fL (81.5-99.8) MCH 28.1 pg pg (27.9-34.1) MCHC 32.9 g/dL g/dL (32.4-36.7) RDW 16.2 % H % (11.5-15.2) Plt Count 252 10^3/uL 10^3/uL (150-400) MPV 9.9 fL fL (8.7-11.7) Neut % (Auto) 88.2 % H % (39.3-74.2) Lymph % (Auto) 3.5 % L % (15.0-45.0) Cecil % (Auto) 6.9 % % (4.5-13.0) Eos % (Auto) 0.1 % L % (0.6-7.6) Baso % (Auto) 0.1 % L % (0.3-1.7) Nucleat RBC Rel Count 0.0 % % (0.0-0.2) Absolute Neuts (auto) 16.96 10^3/uL H 10^3/uL (1.70-6.50) Absolute Lymphs (auto) 0.67 10^3/uL L 10^3/uL (1.00-3.00) Absolute Monos (auto) 1.33 10^3/uL H 10^3/uL (0.30-0.80) Absolute Eos (auto) 0.01 10^3/uL L 10^3/uL (0.03-0.40) Absolute Basos (auto) 0.01 10^3/uL L 10^3/uL (0.02-0.10) Absolute Nucleated RBC 0.00 10^3/uL 10^3/uL (0-0.01) Immature Gran % 1.2 % H % (0.0-1.1) Immature Gran # 0.23 10^3/uL H 10^3/uL (0.00-0.10) VBG Lactic Acid 2.0 mmol/L mmol/L (0.7-2.1) Sodium 129 mEq/L L mEq/L (135-145) Potassium 4.3 mEq/L mEq/L (3.5-5.2) Chloride 96 mEq/L L mEq/L (97-110) Carbon Dioxide 18 mEq/l L mEq/l (22-31) Anion Gap 15 mEq/L mEq/L (8-16) BUN 61 mg/dL H mg/dL (7-23) Creatinine 1.6 mg/dL H mg/dL (0.7-1.3) Estimated GFR 43 Glucose 122 mg/dL H mg/dL (70-100) Calcium 8.1 mg/dL L mg/dL (8.5-10.4) Medications Given: Discontinued Medications Sodium Chloride (Ns) 3,000 mls @ 6,000 mls/hr 30 ml/kg infuse over 30 min ( 3000 ml) IV EDNOW ONE PRN Reason: Protocol Stop: 08/24/17 11:46 Last Admin: 08/24/17 12:33 Dose: 3,000 mls Ceftriaxone Sodium/Dextrose (Rocephin 1 Gm (Premix)) 50 mls @ 100 mls/hr IV EDNOW ONE PRN Reason: Protocol Stop: 08/24/17 12:12 Last Admin: 08/24/17 12:33 Dose: 50 mls General Time Seen by Provider: 08/24/17 10:54 Initial Vital Signs: Initial Vital Signs Temperature (C) 36.5 C 08/24/17 11:08 Heart Rate 114 H 08/24/17 11:08 Respiratory Rate 24 H 08/24/17 11:08 Blood Pressure 96/65 L 08/24/17 11:08 O2 Sat (%) 91 L 08/24/17 11:08 O2 Delivery Mode Room Air Allergies/Adverse Reactions: Penicillins Allergy (Verified 08/24/17 11:12) Home Medications: Medication Instructions Recorded DULoxetine [Cymbalta 30 MG (*)] 30 mg PO BID 08/24/17 Hydrocodone/Acetaminophen [[place] 1 each PO Q6 PRN 08/24/17 5/325 (*)] Ipratropium/Albuterol [Combivent 1 inh IH QID 08/24/17 Respimat Inhal [place](*)] Lisinopril [Zestril 10 mg (*)] 10 mg PO DAILY 08/24/17 Departure - Departure Disposition: [facility] Inpatient Acute Clinical Impression: Sepsis Qualifiers: Sepsis type: sepsis due to unspecified organism Qualified Code(s): A41.9 - Sepsis, unspecified organism Syncope Qualifiers: Syncope type: unspecified Qualified Code(s): R55 - Syncope and collapse Condition: Fair Report Scribed for: Issa Ortiz Report Scribed by: Courtney Holguin Date of Report: 08/24/17 Time of Report: 11:49 Physician Review and Approval Statement: Portions of this note were transcribed by an ED scribe. I personally performed the history, physical exam, and medical decision making; and confirm the accuracy of the information in the transcribed note.
--- NOTE | 2017-08-24 11:04 | CPEKG ---
Heart Rate: 113 RR Interval: 531 P-R Interval: 156 QRSD Interval: 104 QT Interval: 344 QTC Interval: 472 P [place]: 24 QRS [place]: 8 T Wave [place]: -12 EKG Severity - BORDERLINE ECG - EKG Impression: SINUS TACHYCARDIA EKG Impression: PROBABLE LEFT ATRIAL ABNORMALITY EKG Impression: BORDERLINE T ABNORMALITIES, INFERIOR LEADS Electronically Signed By: Raulito Henriquez 27-Aug-2017 08:59:36
[2017-08-24] MEDS ORDERED: NS 3,000 ML IV ONE (11:17)
[2017-08-24 11:18] LABS: PLATELET COUNT 252 10^3/uL (150-400)
[2017-08-24] MEDS ORDERED: ONDANSETRON DISINTEGRATING 4 MG TAB PO PRN (12:56)
--- NOTE | 2017-08-24 13:25 | GHP ---
[f rep st] HISTORY AND PHYSICAL DATE OF ADMISSION: 08/24/2017 Mr. Hou is a pleasant 66-year-old gentleman with a history of bladder cancer, status post radical cy stoprostatectomy with urostomy, who was referred to the emergency department when he had collapsed in line at the [facility]. He was found to have malodorous urine draining from his urostomy and was sure he has not had a bag to drain into for about a week. He claims he is not sure of where to put it. It is not clear that he ran out of the bags. He said he has had some diarrhea a nd some fever and chills and malaise, and also he has had malaise for about a week. He has had no chest pain. He has had upper abdominal pain. No cough. REVIEW OF SYSTEMS: Complete review of systems conducted and negative except as noted in the HPI. PAST MEDICAL HISTORY: 1. Bladder cancer status post radical cystoprostatectomy. 2. Hypertension. 3. Atrial fibrillation for bladder cancer. 4. Diverticulosis. 5. Urologic surgery was 12/2015, as well as an inguinal hernia repair. ALLERGIES: Gets a rash to penicillins. HOME MEDICATIONS: Based on a list dated yesterday, just Combivent and lisinopril. SOCIAL HISTORY: He lives with his son. Has not drank alcohol in a few years. Unclear if he is a smo ker. FAMILY HISTORY: Parents . PHYSICAL EXAMINATION: PRESENTING VITALS: Temperature 36.5, blood pressure 96/65, pulse 114, now 93, breathing 24 times a minute, 91% on room air. GENERAL: In general, no acute distress, disheveled, ch ronically ill appearing. HEENT: Sclerae anicteric. Oropharynx clear. Mucous membranes are moist. T here is some very poor dentition. NECK: Supple without lymphadenopathy or JVD. LUNGS: Clear to au scultation anterolaterally. HEART: S1, S2. ABDOMEN: Soft, nontender, nondistended. There is a pink and red urostomy with surrounding mild cellulitis and malodorous urine. EXTREMITIES: His lower extr emities are without edema. There is some redness around his ankles bilaterally. Calves are nontende r. SKIN: Otherwise without rash. NEUROLOGIC: Neurologic exam is nonfocal. LABORATORY: White count is 19, which is greater than his baseline. Hematocrit is 41, platelets 252, 000. Venous lactate is 2.0. This is a normal value. Sodium 129, potassium 4.3, chloride 96, bicarb 18, BU N 61, creatinine 1.6, baseline 1, glucose 122. There is no urinalysis as of yet. IMAGING: Chest x-ray interpreted by me shows no acute cardiopulmonary disease. EKG interpreted by me shows sinus tachycardia at 113 with normal axis and intervals. No ST or T-wave changes. I have discussed the case with Dr. Issa Ortiz. ASSESSMENT AND PLAN: 66-year-old gentleman presents with sepsis, likely of urinary source. 1. Sepsis, as evidenced by leukocytosis and source of infection as well as tachycardia. We will pro vide him with IV fluid bolus. 2. Urinary infection. This is a complicated urine infection in a patient with surgical urinary anjelica marlin. He has a history of methicillin-resistant Staphylococcus aureus in his urine I have learned fr om reading the chart, therefore, put him on vancomycin and ceftriaxone. We will await urine culture. 3. Diarrhea. Check Clostridium difficile. 4. Hyponatremia. This is hypovolemic hyponatremia. 5. Metabolic acidosis. We will repeat a Chem 7 this afternoon following volume resuscitation. 6. Prophylaxis. Pharmacologic prophylaxis is indicated, low-molecular heparin. 7. Disposition. Inpatient status. /[id number]/MODL
--- NOTE | 2017-08-24 14:19 | PDMN ---
Medical Necessity Medical necessity: Pt meets IP criteria per MD; est los >2 mn for eval/tx of sepsis, complicated urinary infection, diarrhea, hyponatremia & metabolic acidosis; admit for further workup/monitoring, IVFs, IV abx & therapies; hx bladder cancer s/p radical cystoprostatectomy w/urostomy, HTN, AFIB; per H&P & order 08/24/17
[2017-08-24] MEDS: NS 1,000 ML IV SCH ×2 (14:52→20:35)
[2017-08-24] MEDS: VANCOMYCIN HCL/NORMAL SALINE 250 ML IV SCH (14:53)
--- NOTE | 2017-08-24 16:06 | ASMTCMCOM ---
CM Note CM Note Notes: Patient admitted with sepsis; source is likely urinary as patient has a surgical urinary anatomy. Most of his ED visits (of which there are many) are related to his urostomy bag. Patient was fairly somnolent when I met with him, but he was able to tell me that he is living with his son right now. He has previously been homeless "for a long time," and was also housed at [facility]. He says he lost that housing because he was "wrongly accused." When I asked him if he would be able to discharge back to his son's house, he said yes, "but not for long." Patient is seen at [facility], with [facility] medical care and [facility] psychiatric care. He says he does not have any services at home, and I recommended that he consider a home RN. We can order this when he is discharged. Case Management will follow. Date Signed: 08/24/2017 04:06 PM Electronically Signed By:Gisela Resendez RN
[2017-08-24] MEDS: IPRATROPIUM/ALBUTEROL 4GM MDI IH SCH ×2 (16:26→21:12)
--- NOTE | 2017-08-24 16:41 | WOCRNPDOC ---
[facility]UNTER Advanced Assessment Note - Skin Integrity Problem, Advanced Assess Right Shoulder Dressing Type: Open to Air Exudate Amount: None Christina Wound Tissue: Intact Site Odor: None Site Measurement - Head-to-Toe Length X Width X Depth (cm): [id number] Skin Integrity Problem Comment: Area of blanching erythema noted on patient's R shoulder. Currently not a pressure injury. Patient does not know how the discoloration occurred. No pressure over the site at this current time. Nursing can continue to monitor; wound RN does not need to assess again. Bilateral Thigh Dressing Type: Open to Air Exudate Amount: None Integumentary Issue Intervention: Barrier Cream Applied (MAD cream ordered from pharmacy) Wound Bed Color: Red Wound Bed Constitution: Red/[place] - Non Granular Tissue Skin Integrity Problem Comment: Raw, denuded skin noted in bilateral inner thighs. Nursing applied Calazime cream, which is appropriate. However, due to patient's c/o pain during assessment, and the scattered satellite lesions indicating possible fungal involvement, will have nursing apply cream with zinc/ lido/clotrimazole. Scrotum Dressing Type: Open to Air Integumentary Issue Intervention: Barrier Cream Applied (MAD cream ordered from pharmacy) Wound Bed Color: Red Wound Bed Constitution: Red/[place] - Non Granular Tissue Skin Integrity Problem Comment: Raw, denuded skin over scrotum r/t exposure to urine from patient's ileal conduit (urostomy) leaking onto his lower abdomen, thighs, and groin. Per his report, he had an ostomy appliance in place, but doesn't recall what happened to it. Condition of skin indicates that exposure to urine has been going on for at least a few days. Urostomy appliance placed by packager hand Lou, and barrier cream applied to denuded areas. In addition, patient's urostomy pouch attached to bedside drainage system by this RN, using the Herman adaptor. Penis Dressing Type: Open to Air Integumentary Issue Intervention: Barrier Cream Applied (MAD cream ordered from pharmacy) Wound Bed Color: Red Wound Bed Constitution: Red/[place] - Non Granular Tissue Skin Integrity Problem Comment: Raw, denuded skin noted on penis r/t exposure to urine. Retracted patient's foreskin during assessment, and noted mild dermatitis throughout. Will have nursing apply MAD cream to protect skin and provide pain relief. - Urostomy Assessment, Advanced Right Abdomen Urostomy Appliance Currently in Use: Two Piece Flat, 2 1/, Cut to Fit Stoma Turgor: Moist Stoma Shape: Round Stoma Height: Protruding Urostomy Effluent: Urine (cloudy) Urostomy Details: Ileal Conduit Urostomy Comment/Treatment Details: 2-piece urostomy appliance placed by packager hand Lou, who reported that patient was admitted w/ no appliance and incontinence -associated dermatitis on his inner thighs, groin folds, scrotum, and penis. I did not assess peristomal skin, as appliance was just placed; per Lou, patient had no breakdown on his abdomen. Stoma is red, moist, adequately protruding into pouch. Cloudy urine noted in pouch, and emptied into bedside drainage driver/refuse collector using an adaptor. Wound/it support analyst will follow up with patient next week to inquire about his ostomy supplies and ongoing care.
[2017-08-24] MEDS: HYDROCODONE/APAP 5/325 TAB PO PRN (20:34)
[2017-08-24] MEDS: DULoxetine 30 MG CAP PO SCH (20:34)
[2017-08-24] MEDS: LIDO/ZINC OX/CLOTRIMAZOLE (MAD) 116 GM CREAM TP SCH (22:35)
[2017-08-25] MEDS: VANCOMYCIN 125 MG/2.5 ML UDL PO SCH ×5 (00:55→21:19)
[2017-08-25] MEDS: HYDROCODONE/APAP 5/325 TAB PO PRN ×3 (00:55→21:18)
[2017-08-25] MEDS: VANCOMYCIN HCL/NORMAL SALINE 250 ML IV SCH ×2 (02:40→14:33)
[2017-08-25] MEDS: NS 1,000 ML IV SCH ×3 (02:41→17:30)
[2017-08-25] MEDS: ACETAMINOPHEN 325 MG TAB PO PRN (04:30)
[2017-08-25 04:55] LABS: INR 1.14 (0.83-1.16); PLATELET COUNT 192 10^3/uL (150-400); PROTIME(PATIENT) 14.8 SEC (12.0-15.0)
[2017-08-25] MEDS ORDERED: PROTOCOL CALCIUM 1 DOSE IV PRN (05:55)
[2017-08-25] MEDS: IPRATROPIUM/ALBUTEROL 4GM MDI IH SCH ×4 (06:13→22:09)
--- NOTE | 2017-08-25 08:05 | HOSPPROG ---
Hospitalist Progress Note Assessment/Plan: 66 yo M w sepsis, complicated uti, cdiff, luis fernando cdiff: po vanco abdomen soft per pt, diarhea improevd sepsis: septic physiology has improved complicated uti: h/o mrsa uti, which is not surprising given stoma and poor care as utpt vanc ceftriaxone day 2 await cx LUIS FERNANDO: pre renal improved urostomy: wound care seeing will need urostomy supplies on dc proph: lmwh dispo: inpt, to floor Subjective: tele: no events (interp by me). more alert Objective: Vital Signs Temp Pulse Resp BP Pulse Ox 36.9 C 76 19 90/54 L 92 08/24/17 22:00 08/25/17 07:00 08/25/17 07:00 08/25/17 07:00 08/25/17 07:00 Laboratory Results 08/25/17 04:30 08/25/17 04:30 08/24/17 08/25/17 08/26/17 05:59 05:59 05:59 Intake Total 6650 Output Total 2450 Balance 4200 PT 14.8 SEC (12.0-15.0) 08/25/17 04:30 INR 1.14 (0.83-1.16) 08/25/17 04:30 - Physical Exam Constitutional: no apparent distress, appears nourished Eyes: PERRL, anicteric sclera Ears, Nose, Mouth, Throat: moist mucous membranes, hearing normal Cardiovascular: regular rate and rhythym, no murmur, rub, or gallop, No tachycardia Respiratory: no respiratory distress, no rales or rhonchi Gastrointestinal: normoactive bowel sounds, soft, non-tender abdomen Genitourinary: no bladder fullness, other (urostomy pink, some purulence around stoma), No phillips in urethra Skin: warm, normal color Musculoskeletal: normal joint ROM Neurologic: AAOx3, sensation intact bilaterally Psychiatric: interacting appropriately ICD10 Worksheet Patient Problems: Problems Problem Status Onset Sepsis Acute Syncope Acute Abdominal pain Acute Bladder cancer Acute Edema Acute Gross hematuria Acute Hydronephrosis, left Acute MRSA (methicillin resistant Staphylococcus aureus) Acute ~09/17/16 Shortness of breath Acute Urinary tract infection Acute
[2017-08-25] MEDS ORDERED: CALCIUM GLUCONATE 50 ML IV ONE (08:34)
[2017-08-25] MEDS: DULoxetine 30 MG CAP PO SCH ×2 (08:57→21:45)
[2017-08-25] MEDS: ENOXAPARIN 40 MG/0.4 ML SYR SC SCH (08:57)
[2017-08-25] MEDS: LIDO/ZINC OX/CLOTRIMAZOLE (MAD) 116 GM CREAM TP SCH ×2 (09:02→21:15)
[2017-08-26 03:33] LABS: PLATELET COUNT 210 10^3/uL (150-400)
[2017-08-26] MEDS: VANCOMYCIN HCL/NORMAL SALINE 250 ML IV SCH ×2 (04:32→16:40)
[2017-08-26] MEDS: IPRATROPIUM/ALBUTEROL 4GM MDI IH SCH ×4 (05:30→22:44)
[2017-08-26] MEDS: VANCOMYCIN 125 MG/2.5 ML UDL PO SCH ×4 (05:42→20:53)
[2017-08-26] MEDS: NS 1,000 ML IV SCH ×2 (07:55→15:38)
[2017-08-26] MEDS: DULoxetine 30 MG CAP PO SCH ×2 (10:10→20:53)
[2017-08-26] MEDS: ENOXAPARIN 40 MG/0.4 ML SYR SC SCH (10:10)
[2017-08-26] MEDS: HYDROCODONE/APAP 5/325 TAB PO PRN ×2 (10:11→18:33)
[2017-08-26] MEDS: LIDO/ZINC OX/CLOTRIMAZOLE (MAD) 116 GM CREAM TP SCH ×2 (12:20→20:57)
--- NOTE | 2017-08-26 12:41 | HOSPPROG ---
Hospitalist Progress Note Assessment/Plan: 66 yo M w sepsis, complicated uti, cdiff, luis fernando cdiff: po vanco abdomen soft per pt, diarhea improevd sepsis: septic physiology has improved Hypotension: still with soft BP, good urine output complicated uti: h/o mrsa uti, which is not surprising given stoma and poor care as utpt vanc ceftriaxone day 3 await cx LUIS FERNANDO: pre renal improved urostomy: wound care seeing will need urostomy supplies on dc Hypoxemia ?fluid proph: lmwh dispo: inpt, to floor Plan: The patients uop is better. urine is dilute. However BP is still soft with systolic in the 90's. Will decrease IVF. Check CXR Given soft BP, repeat lactic acid and pc Abd is distended but unclear baseline. no pain. will check KUB cont all abx, no change at this time Subjective: no cp. some hypoxemia. still confused. no leg swelling. good urine output Objective: Vital Signs Temp Pulse Resp BP Pulse Ox 36.3 C 92 18 96/54 L 92 08/26/17 12:09 08/26/17 12:09 08/26/17 12:09 08/26/17 12:09 08/26/17 12:09 Laboratory Results 08/26/17 03:20 08/26/17 03:20 08/25/17 08/26/17 08/27/17 05:59 05:59 05:59 Intake Total 6650 4891 472 Output Total 2450 3050 1250 Balance 4200 1841 -778 PT 14.8 SEC (12.0-15.0) 08/25/17 04:30 INR 1.14 (0.83-1.16) 08/25/17 04:30 - Physical Exam Constitutional: no apparent distress Eyes: PERRL, EOMI Ears, Nose, Mouth, Throat: moist mucous membranes, hearing normal, ears appear normal Cardiovascular: regular rate and rhythym, No edema Respiratory: reduced air movement Gastrointestinal: normoactive bowel sounds, soft, non-tender abdomen, no palpable masses Genitourinary: no bladder fullness Skin: warm Neurologic: AAOx3 Psychiatric: not anxious, encephalopathic ICD10 Worksheet Patient Problems: Problems Problem Status Onset Sepsis Acute Syncope Acute Abdominal pain Acute Bladder cancer Acute Edema Acute Gross hematuria Acute Hydronephrosis, left Acute MRSA (methicillin resistant Staphylococcus aureus) Acute ~06/04/17 Shortness of breath Acute Urinary tract infection Acute
[2017-08-27] MEDS: NS 1,000 ML IV SCH (00:19)
[2017-08-27] MEDS: HYDROCODONE/APAP 5/325 TAB PO PRN ×2 (00:19→08:49)
[2017-08-27] MEDS: VANCOMYCIN HCL/NORMAL SALINE 250 ML IV SCH ×2 (03:29→16:57)
[2017-08-27 04:26] LABS: PLATELET COUNT 235 10^3/uL (150-400)
[2017-08-27] MEDS: IPRATROPIUM/ALBUTEROL 4GM MDI IH SCH ×4 (06:06→21:14)
[2017-08-27] MEDS: VANCOMYCIN 125 MG/2.5 ML UDL PO SCH ×4 (06:25→22:25)
[2017-08-27] MEDS: DULoxetine 30 MG CAP PO SCH ×2 (08:49→22:25)
[2017-08-27] MEDS: ENOXAPARIN 40 MG/0.4 ML SYR SC SCH (08:49)
[2017-08-27] MEDS: LIDO/ZINC OX/CLOTRIMAZOLE (MAD) 116 GM CREAM TP SCH ×2 (11:35→22:25)
[2017-08-27] MEDS ORDERED: ALTEPLASE 2 MG VIAL IVP PRN (12:11)
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
--- NOTE | 2017-08-27 15:40 | HOSPPROG ---
Hospitalist Progress Note Assessment/Plan: 66 yo M w sepsis, complicated uti, cdiff, luis fernando cdiff: po vanco abdomen soft per pt, diarhea improved sepsis: septic physiology has improved, in setting of c diff and UTI Hypotension: BP improved to the low normal range, good urine output complicated uti: h/o mrsa uti, which is not surprising given stoma and poor care as utpt vanc ceftriaxone day 3 blood cultures negative, urine cultures not sent on arrival and prior to initiation of abx, will ask ID to assist in abx choice given limited data LUIS FERNANDO: pre renal improved urostomy: wound care seeing will need urostomy supplies on dc Hypoxemia ?fluid proph: lmwh dispo: inpt, patient states he is largely residing in half-way, CM involved and looking into options Patient new to my care. Old records reviewed and summarized as above. Subjective: no signficiant overnight events, patient remains feeling weak, diarrhea has improved Objective: Vital Signs Temp Pulse Resp BP Pulse Ox 36.4 C 89 20 115/81 H 97 08/27/17 15:23 08/27/17 15:23 08/27/17 15:23 08/27/17 15:23 08/27/17 15:23 Laboratory Results 08/27/17 04:15 08/27/17 04:15 08/26/17 08/27/17 08/28/17 05:59 05:59 05:59 Intake Total 4891 8540 Output Total 3050 3575 1850 Balance 1841 4965 -1850 PT 14.8 SEC (12.0-15.0) 08/25/17 04:30 INR 1.14 (0.83-1.16) 08/25/17 04:30 awake alert nad anicteric op clear rrr no mrg cta b soft nt nd no cce warm dry well perfused oriented approriate ICD10 Worksheet Patient Problems: Problems Problem Status Onset Sepsis Acute Syncope Acute Abdominal pain Acute Bladder cancer Acute Edema Acute Gross hematuria Acute Hydronephrosis, left Acute MRSA (methicillin resistant Staphylococcus aureus) Acute ~09/17/16 Shortness of breath Acute Urinary tract infection Acute
[2017-08-28] MEDS: VANCOMYCIN 1 GM in NS 250 ML IV SCH ×2 (02:59→16:19)
[2017-08-28] MEDS: IPRATROPIUM/ALBUTEROL 4GM MDI IH SCH ×4 (05:45→20:01)
[2017-08-28] MEDS: VANCOMYCIN 125 MG/2.5 ML UDL PO SCH ×4 (05:50→21:18)
[2017-08-28] MEDS: NS 1,000 ML IV SCH (06:25)
[2017-08-28] MEDS: HYDROCODONE/APAP 5/325 TAB PO PRN (09:17)
[2017-08-28] MEDS: DULoxetine 30 MG CAP PO SCH ×2 (09:17→21:18)
[2017-08-28] MEDS: ENOXAPARIN 40 MG/0.4 ML SYR SC SCH (09:20)
--- NOTE | 2017-08-28 15:05 | GCON ---
[f rep st] CONSULTATION INFECTIOUS DISEASE CONSULTATION REFERRING PHYSICIAN: Smita Lin MD REASON FOR CONSULTATION: Clostridium difficile and possible urinary tract infection. CHIEF COMPLAINT: Diarrhea. HISTORY OF PRESENT ILLNESS: This is a 66-year-old man with a past medical history significant for bl adder cancer, status post radical cystoprostatectomy with urostomy, hypertension, who was admitted on the after collapsing at a clinic. He tells me that for several days prior to his collapse, he was having diarrhea about 6 to 8 times a day, mostly watery, but occasionally bloody, that he thinks. He is not sure if he had fevers and shaking chills. He was having some abdominal discomfort along with that. He also was having some radiation of pain to the flanks with again some discomfort around his urostomy area. He says sometimes when he has a urinary infection, he gets the same symptoms as well. When he was brought here to the ER, temperature was 36.5, respiratory rate was 24, blood press ure was 94/51, and his heart rate was 114. He was found have leukocytosis. Blood cultures x2 sets w ere drawn and those are so far no growth. He was started on ceftriaxone and vancomycin. He also had a stool study done for C. difficile which was positive, and he was also started on oral vancomycin a s well. Since that time, he states he is feeling better. His white blood cell count has dropped kathleen n into the normal range. A urine culture was never sent on admission and apparently was sent today. In the past, he has had MRSA in his urine upon review of his previous microbiologic data from last y ear. His diarrhea is starting to improved as well. Infectious Disease is now consulted for further evaluation and opinion. REVIEW OF SYSTEMS: GENERAL: He even sure if he had any fevers or chills. HEAD: No headaches. EYES: N o change in vision. ENT: No sore throat, difficulty swallowing, ear pain or ear drainage. CARDIOVASCU LAR: No chest pain or rapid heartbeat. RESPIRATORY: Currently no shortness of breath, cough, or sputu m production. ABDOMEN: Abdomen feels better. He previously had pain. No nausea. Diarrhea is improv ing. GENITOURINARY: He has a urostomy in place. MUSCULOSKELETAL: Denies any joint pain. SKIN: Denies any rashes or open wounds. Rest of a 10-point review of systems is essentially negative except for above. PAST MEDICAL HISTORY: Significant for hypertension, atrial fibrillation, diverticulosis, bladder can cer, inguinal hernia repair. PAST SURGICAL HISTORY: Significant for radical cystoprostatectomy. ALLERGIES: A rash to penicillin. SOCIAL HISTORY: He lives with his son. Formally drank alcohol and denies any smoking. FAMILY HISTORY: His parents are . MEDICATIONS: As per MAR. PHYSICAL EXAMINATION: VITAL SIGNS: Temperature current 36.5, pulse is 93, blood pressure 127/82, re spiratory rate is 20, saturation 95% on 2 L O2 via nasal cannula. GENERAL: Patient is resting in be d. No acute respiratory distress. Awake, alert, and oriented x3. HEENT: Head is normocephalic, atra umatic. Eyes without conjunctival injection or petechiae. Oropharynx is clear. He has missing teet h. CARDIOVASCULAR: S1, S2. Regular rate and rhythm. No murmurs appreciated. RESPIRATORY: Clear to auscultate bilaterally. No rhonchi or rales appreciated. ABDOMEN: Positive bowel sounds in all qu adrants. Soft, nondistended. Mild tenderness around the ostomy bag. EXTREMITIES: Without lower ex tremity edema. MUSCULOSKELETAL: No joint effusions. SKIN: He has multiple abrasions over both of his elbows and both his knees, particularly his right knee has some purulent drainage noted. LABORATORY: White blood cell count 9.0, down from 19.2, hemoglobin 9.7, platelets are 235, neutrophi l count is 83%. Sodium 144, potassium 4.3, chloride 116, bicarb 22, BUN 19, creatinine 1.0. AST 14, ALT 36, alkaline phosphatase 57, total bilirubin 0.2. Urinalysis 3+ leukocyte esterases, negative n itrites. Urine WBCs 50 to 182. Urine RBCs 15 to 25. Vancomycin trough 10.4. C. difficile positive. Blood cultures, no growth to date. Urine culture from today pending. IMAGING: Chest x-ray shows no evidence of pneumonia on the admission x-ray. Follow up x-ray suggest ing maybe possibly a pleural effusion. ASSESSMENT: 1. Clostridium difficile. 2. Multiple wounds on his bilateral elbows and bilateral knees with some purulent drainage. 3. Possible urinary tract infection. PLAN: The patient is currently on oral vancomycin for the C. difficile, which I agree with and finn rachel as is for now. The patient is also currently on IV vancomycin and ceftriaxone for a possible uri nary tract infection. Unfortunately, no urine culture was done at the time of admission and in this circumstance, it may be difficult to interpret the UA primarily to definitively say he has a urinary tract infection, although he does have some symptoms that did arise that are typical for him when he does get a urinary infection. For now, a plan of a short course of therapy for that. I appreciate America Mayer's evaluation and care to all his wound sites. Thank you very much for providing this opportunity to care for your patient in consultation. /[id number]/MODL
[2017-08-28] MEDS: LIDO/ZINC OX/CLOTRIMAZOLE (MAD) 116 GM CREAM TP SCH ×2 (16:19→21:18)
--- NOTE | 2017-08-28 16:21 | HOSPPROG ---
Hospitalist Progress Note Assessment/Plan: 66 yo M w sepsis, complicated uti, cdiff, luis fernando # cdiff: po vanco continued for now, diarrhea improving # sepsis: septic physiology has improved, in setting of c diff and UTI # Hypotension: BP improved to the low normal range, good urine output # ? UTI: in the setting of urostomy in place and abnormal UA on arrival, also with e/o sepsis on arrival. Has hx of mrsa UTI in past, started on IV vanc/ctx but no urine culture obtained on arrival. Appreciate ID input, will continue current abx for 7 day course and then dc. # LUIS FERNANDO: pre renal, improved # urostomy: wound care seeing # Hypoxemia--mild and suspect largely related to immobility/atelectasis, as next # deconditioning: patient with very limited mobility at this point and will need placement after dc, CM involved, pt/ot working with patient #proph: lmwh #dispo: inpt, will likely be ready to dc in coming days if snf found Subjective: no significant overnight events, patient is currently doing well though very sleepy today and remains quite weak, working on increasing his mobility Objective: Vital Signs Temp Pulse Resp BP Pulse Ox 36.5 C 92 19 143/92 H 96 08/28/17 15:46 08/28/17 15:46 08/28/17 15:46 08/28/17 15:46 08/28/17 15:46 Laboratory Results 08/27/17 04:15 08/27/17 04:15 08/27/17 08/28/17 08/29/17 05:59 05:59 05:59 Intake Total 8540 4142 Output Total 3575 3450 Balance 4965 692 PT 14.8 SEC (12.0-15.0) 08/25/17 04:30 INR 1.14 (0.83-1.16) 08/25/17 04:30 awake alert nad anicteric op clear rrr no mrg cta b soft nt nd no cce warm dry well perfused oriented approriate ICD10 Worksheet Patient Problems: Problems Problem Status Onset Sepsis Acute Syncope Acute Abdominal pain Acute Bladder cancer Acute Edema Acute Gross hematuria Acute Hydronephrosis, left Acute MRSA (methicillin resistant Staphylococcus aureus) Acute ~09/17/16 Shortness of breath Acute Urinary tract infection Acute
--- NOTE | 2017-08-28 17:15 | ASMTCMCOM ---
CM Note CM Note Notes: I spoke with Lisandra, patient's Mona RN ([phone]), who provided some background information. Patient has been seeing her regularly since 03/02 at [facility] for ostomy/urostomy supplies and support. She said that he has been living with his son in a one-bedroom apartment. She'd never met him or spoken to him. Per Lisandra and notes from patient's previous hospitalizations, he's been homeless, [facility] the [facility], [facility] of the [facility], and also asked to leave [facility]. I've only corroborated some of that history with patient. Lisandra gave me the name and number of Pza Blake, patient's [facility] counselor ([phone]) who may be able to answer some of the housing questions. I called and left her a message. I went to speak with patient about discharge planning. He's difficult to speak with, a man of few words who can be gruff but who later apologizes. It's hard to get his take on the situation. He keeps saying he lives with his son "off and on." He told me his son's name was Alden but that he didn't know his phone number. He also said Alden hasn't been by the hospital. I called the number for his brother Nando (listed in demographics) but there was no answer. We are trying to get the patient to a SNF. Lisandra said that he had had family at the [facility] in [place]; patient did confirm that his mother lived there. While he initially said he wouldn't go, he later told me he would. He said he was "sick of moving around all the time." The [facility] is reviewing him for admission. This patient has the benefit of some good community support, and I wish we could enlist his son, although none of his providers have that contact information. Case Management will continue to follow. Date Signed: 08/28/2017 04:14 PM Electronically Signed By:Gisela Resendez RN
[2017-08-29] MEDS: VANCOMYCIN 1 GM in NS 250 ML IV SCH (03:02)
[2017-08-29] MEDS: NS 1,000 ML IV SCH (03:03)
[2017-08-29] MEDS: VANCOMYCIN 125 MG/2.5 ML UDL PO SCH ×4 (06:00→20:39)
[2017-08-29] MEDS: IPRATROPIUM/ALBUTEROL 4GM MDI IH SCH ×4 (06:21→22:39)
[2017-08-29] MEDS: DULoxetine 30 MG CAP PO SCH ×2 (10:34→20:39)
[2017-08-29] MEDS: LIDO/ZINC OX/CLOTRIMAZOLE (MAD) 116 GM CREAM TP SCH ×2 (10:35→20:40)
[2017-08-29] MEDS: ENOXAPARIN 40 MG/0.4 ML SYR SC SCH (10:35)
--- NOTE | 2017-08-29 11:48 | WOCRNPDOC ---
WOCRN Advanced Assessment Note - Skin Integrity Problem, Advanced Assess Right Knee Dressing Type: Allevyn Life Dressing Description: Clean/Dry, Intact Exudate Amount: Scant Exudate Color: Reddish/Yellow Exudate Characteristic(s): Serosanguinous Integumentary Issue Intervention: Visualized Under Dressing Wound Bed Color: [place], Red Wound Bed Constitution: Red/[place] - Non Granular Tissue (100%) Wound Edges: Irregular Site Measurement - Head-to-Toe Length X Width X Depth (cm): 2.3x4.8x0.1 Skin Integrity Problem Comment: Partial thickness wound on right knee, possibly a skin tear from a fall. Part of skin flap adhered to Allevyn dressing. Will recommend continued use of Allevyn with wound gel for treatment instead of skin tear protocol due to location. Wound care will sign off on this wound. Left Knee Dressing Type: Allevyn Life Dressing Description: Clean/Dry, Intact Exudate Amount: Scant Exudate Color: Reddish/Yellow Exudate Characteristic(s): Seropurulent, Serosanguinous Integumentary Issue Intervention: Visualized Under Dressing Wound Bed Color: [place], Red Wound Bed Constitution: Red/[place] - Non Granular Tissue (100%) Wound Edges: Irregular Site Odor: Slight Site Measurement - Head-to-Toe Length X Width X Depth (cm): 3.1x2.3x0.2 Skin Integrity Problem Comment: Partial thickness wound to left knee, possibly a skin tear. Proximal medial portion of wound has scant creamy exudate, otherwise no drainage visible. Wound did not look infected. Recommend use of silvasorb on wound bed. Wound care will sign off on this wound.
[2017-08-29] MEDS ORDERED: CALCIUM GLUCONATE 50 ML IV ONE (12:00)
--- NOTE | 2017-08-29 14:55 | PCMIDPN ---
Assessment/Plan: Assessment/Plan: * C difficile colitis: Diarrhea has decreased with oral vancomycin. Will continue oral vancomycin and follow clinical response. * Possible UTI: Difficult to assess for UTI based on presence of urostomy. Now has received 5 days of vancomycin and ceftriaxone. Given presence of C difficile and unclear if UTI contributing, will discontinue vancomycin ceftriaxone to limit broad-spectrum antibiotic exposure. Follow-up urine culture which currently shows no growth to date. 08/29/17 14:51 Subjective: Patient complains of lower abdominal discomfort. 1 episode of diarrhea today. Objective: Vital Signs Temp Pulse Resp BP Pulse Ox 36.6 C 89 18 149/95 H 96 08/29/17 08:00 08/29/17 10:26 08/29/17 10:26 08/29/17 08:00 08/29/17 10:26 Laboratory Results 08/27/17 04:15 08/27/17 04:15 08/28/17 08/29/17 08/30/17 05:59 05:59 05:59 Intake Total 4142 3709 1345 Output Total 3450 3350 1000 Balance 692 359 345 p.o. Vancomycin #5 IV vancomycin # 6 IV ceftriaxone # 6 Blood cultures x2 no growth Urine culture no growth to date (obtained after antibiotic therapy initiated) - Physical Exam General Appearance: alert, no apparent distress EENT: No scleral icterus Respiratory: lungs clear, No respiratory distress Cardiac/Chest: regular rate, rhythm Abdomen: non-tender, No distended Skin: other (Abrasions over both knees without active cellulitis or purulent drainage) ICD10 Worksheet Patient Problems: Problems Problem Status Onset Sepsis Acute Syncope Acute Abdominal pain Acute Bladder cancer Acute Edema Acute Gross hematuria Acute Hydronephrosis, left Acute MRSA (methicillin resistant Staphylococcus aureus) Acute ~09/17/16 Shortness of breath Acute Urinary tract infection Acute
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
--- NOTE | 2017-08-29 16:57 | HOSPPROG ---
Hospitalist Progress Note Assessment/Plan: 66 yo M w sepsis, complicated uti, cdiff, luis fernando # cdiff: po vanco continued for now, diarrhea improving # sepsis: septic physiology has improved, in setting of c diff and UTI # Hypotension: BP improved to the low normal range, good urine output # ? UTI: in the setting of urostomy in place and abnormal UA on arrival, also with e/o sepsis on arrival. Has hx of mrsa UTI in past, started on IV vanc/ctx but no urine culture obtained on arrival. Appreciate ID input, dc abx today given negative urine cultures # LUIS FERNANDO: pre renal, improved # urostomy: wound care seeing # Hypoxemia--mild and suspect largely related to immobility/atelectasis, as next # deconditioning: patient with very limited mobility at this point and will need placement after dc, CM involved, pt/ot working with patient #proph: lmwh #dispo: inpt, will likely be ready to dc in coming days if snf found Subjective: no significant overnight events, patient somnolent again today Objective: Vital Signs Temp Pulse Resp BP Pulse Ox 37.0 C 91 18 127/81 H 95 08/29/17 16:00 08/29/17 16:00 08/29/17 16:00 08/29/17 16:00 08/29/17 16:00 Laboratory Results 08/27/17 04:15 08/27/17 04:15 08/28/17 08/29/17 08/30/17 05:59 05:59 05:59 Intake Total 4142 3709 1345 Output Total 3450 3350 2450 Balance 692 359 -1105 PT 14.8 SEC (12.0-15.0) 08/25/17 04:30 INR 1.14 (0.83-1.16) 08/25/17 04:30 awake alert nad anicteric op clear rrr no mrg cta b soft nt nd no cce warm dry well perfused oriented approriate ICD10 Worksheet Patient Problems: Problems Problem Status Onset Sepsis Acute Syncope Acute Abdominal pain Acute Bladder cancer Acute Edema Acute Gross hematuria Acute Hydronephrosis, left Acute MRSA (methicillin resistant Staphylococcus aureus) Acute ~09/17/16 Shortness of breath Acute Urinary tract infection Acute
[2017-08-30] MEDS: VANCOMYCIN 125 MG/2.5 ML UDL PO SCH ×4 (05:18→21:47)
[2017-08-30] MEDS: IPRATROPIUM/ALBUTEROL 4GM MDI IH SCH ×4 (05:44→23:03)
[2017-08-30] MEDS: DULoxetine 30 MG CAP PO SCH ×2 (09:08→21:46)
[2017-08-30] MEDS: LIDO/ZINC OX/CLOTRIMAZOLE (MAD) 116 GM CREAM TP SCH ×2 (09:08→21:47)
[2017-08-30] MEDS: ENOXAPARIN 40 MG/0.4 ML SYR SC SCH (09:08)
--- NOTE | 2017-08-30 09:57 | PCMIDPN ---
Assessment/Plan: Assessment: C diff colitis. Patient seems to still have significant number of bowel movements. He is having his 2nd already this morning at 10:00 a.m.. Abdomen still painful. Plan to continue the oral vancomycin and observe for symptom improvement. Plan: 1. Continue oral vancomycin as dosed. 2. Continue look for placement. 08/30/17 09:54 Subjective: Patient is resting in his hospital bed. He needs to get assisted to the commode for his 2nd bowel movement of the day. Still having liquid stools. No fevers or chills. Continues to note abdominal distention and discomfort. Very weak. Objective: Vancomycin p.o. # 6 Vital Signs Temp Pulse Resp BP Pulse Ox 36.7 C 88 18 146/96 H 95 08/30/17 07:28 08/30/17 07:28 08/30/17 07:28 08/30/17 07:28 08/30/17 07:28 Microbiology 08/28/17 05:55 Urine Culture - Final Urine,Catheterized Laboratory Results 08/27/17 04:15 08/27/17 04:15 08/29/17 08/30/17 08/31/17 05:59 05:59 05:59 Intake Total 3709 3695 Output Total 3350 4670 750 Balance 370 -342 -380 - Physical Exam General Appearance: WD/WN, alert, apparent distress (Mild), toxic (Mild) Respiratory: lungs clear, normal breath sounds, No respiratory distress Cardiac/Chest: regular rate, rhythm, No tachycardia Extremities: non-tender, normal inspection Abdomen: soft, distended, No non-tender, No mass Skin: normal color, warm/dry, No rash Neuro/Psych: alert, normal mood/affect, oriented x 3 ICD10 Worksheet Patient Problems: Problems Problem Status Onset Sepsis Acute Syncope Acute Abdominal pain Acute Bladder cancer Acute Edema Acute Gross hematuria Acute Hydronephrosis, left Acute MRSA (methicillin resistant Staphylococcus aureus) Acute ~09/17/16 Shortness of breath Acute Urinary tract infection Acute
--- NOTE | 2017-08-30 10:50 | WOCRNPDOC ---
WOCRN Advanced Assessment Note - Skin Integrity Problem, Advanced Assess Scrotum Dressing Type: Open to Air Integumentary Issue Intervention: Lotion/Cream Applied (MAD cream applied by nursing) Skin Integrity Problem Comment: Skin on scrotum and groin area still denuded and painful to patient, but improved since previous assessment. Will continue with current plan of care using MAD cream. Wound care will sign off on this wound. Please reconsult PRN.
--- NOTE | 2017-08-30 15:43 | HOSPPROG ---
Hospitalist Progress Note Assessment/Plan: 66 yo M w sepsis, complicated uti, cdiff, luis fernando # cdiff: po vanco continued for now, diarrhea improving # sepsis: septic physiology has improved, in setting of c diff and UTI # Hypotension: BP improved to the low normal range, good urine output # ? UTI: in the setting of urostomy in place and abnormal UA on arrival, also with e/o sepsis on arrival. Has hx of mrsa UTI in past, started on IV vanc/ctx but no urine culture obtained on arrival. Appreciate ID input, IV vanc/CTX discontinued on 08/29 and doing well thus far # LUIS FERNANDO: pre renal, improved # urostomy: wound care seeing # Hypoxemia--mild and suspect largely related to immobility/atelectasis, as next # deconditioning: patient with very limited mobility at this point and will need placement after dc, CM involved, pt/ot working with patient #proph: lmwh #dispo: inpt, will likely be ready to dc in coming days if snf found Subjective: no significant overnight events, remains somnolent but has been up and walking earlier and eating well Objective: Vital Signs Temp Pulse Resp BP Pulse Ox 36.9 C 92 18 142/93 H 94 08/30/17 15:05 08/30/17 15:05 08/30/17 15:05 08/30/17 15:05 08/30/17 15:05 Microbiology 08/28/17 05:55 Urine Culture - Final Urine,Catheterized Laboratory Results 08/27/17 04:15 08/30/17 11:00 08/29/17 08/30/17 08/31/17 05:59 05:59 05:59 Intake Total 3709 3695 Output Total 3350 4670 750 Balance 359 -975 -750 PT 14.8 SEC (12.0-15.0) 08/25/17 04:30 INR 1.14 (0.83-1.16) 08/25/17 04:30 awake alert nad anicteric op clear rrr no mrg cta b soft nt nd no cce warm dry well perfused oriented approriate ICD10 Worksheet Patient Problems: Problems Problem Status Onset Sepsis Acute Syncope Acute Abdominal pain Acute Bladder cancer Acute Edema Acute Gross hematuria Acute Hydronephrosis, left Acute MRSA (methicillin resistant Staphylococcus aureus) Acute ~09/17/16 Shortness of breath Acute Urinary tract infection Acute
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
[2017-08-31] MEDS ORDERED: PROTOCOL MAGNESIUM 1 DOSE IV PRN (03:03)
[2017-08-31] MEDS ORDERED: PROTOCOL POTASSIUM 1 DOSE MISC PRN (03:03)
[2017-08-31 04:37] LABS: PLATELET COUNT 274 10^3/uL (150-400)
[2017-08-31] MEDS ORDERED: MAGNESIUM SULF 2 GM/WATER 50 ML IV ONE (05:21)
[2017-08-31] MEDS: IPRATROPIUM/ALBUTEROL 4GM MDI IH SCH ×5 (05:32→22:38)
[2017-08-31] MEDS: VANCOMYCIN 125 MG/2.5 ML UDL PO SCH ×4 (05:44→21:30)
[2017-08-31] MEDS ORDERED: POTASSIUM CL 10 MEQ TAB PO ONE ×2 (07:50→23:06)
[2017-08-31] MEDS: ACETAMINOPHEN 325 MG TAB PO PRN (08:00)
[2017-08-31] MEDS: DULoxetine 30 MG CAP PO SCH ×2 (08:01→21:30)
[2017-08-31] MEDS: ENOXAPARIN 40 MG/0.4 ML SYR SC SCH (08:04)
[2017-08-31] MEDS: LIDO/ZINC OX/CLOTRIMAZOLE (MAD) 116 GM CREAM TP SCH ×2 (08:08→21:36)
--- NOTE | 2017-08-31 10:43 | PCMIDPN ---
Assessment/Plan: Cdiff colitis, wbc much improved, never had fever. Still with significant diarrhea and abdominal pain --continue PO vancomycin --reassured patient that needs more time Question of UTI vs wound infection s/p 5 days of ceftriaxone + vanco IV now off 2 days meds vancomycin 125mg QID, #6 Subjective: still with large loose BMs, frequent abdominal cramping low appetite Objective: Vital Signs Temp Pulse Resp BP Pulse Ox 36.8 C 84 16 146/95 H 90 L 08/31/17 07:40 08/31/17 07:40 08/31/17 07:40 08/31/17 07:40 08/31/17 07:40 Microbiology 08/28/17 05:55 Urine Culture - Final Urine,Catheterized Laboratory Results 08/31/17 04:15 08/31/17 04:15 08/30/17 08/31/17 09/01/17 05:59 05:59 05:59 Intake Total 3695 1920 Output Total 4670 4460 750 Balance -977 -5443 -750 - Physical Exam General Appearance: alert, obese EENT: poor dentition Respiratory: lungs clear, No accessory muscle use Cardiac/Chest: regular rate, rhythm Extremities: No calf tenderness Abdomen: normal bowel sounds, soft, distended, tender, No rigid Male Genitalia: other (has urostomy RLQ) Skin: warm/dry, No rash Neuro/Psych: alert, normal mood/affect, oriented x 3 - Time Spent With Patient Time Spent with Patient: greater than 25 minutes Time Spent with Patient: Greater than 25 minutes spent on this patients care, greater than 50% of time spent counseling, educating, and coordinating care regarding the above mentioned plan. ICD10 Worksheet Patient Problems: Problems Problem Status Onset Sepsis Acute Syncope Acute Abdominal pain Acute Bladder cancer Acute Edema Acute Gross hematuria Acute Hydronephrosis, left Acute MRSA (methicillin resistant Staphylococcus aureus) Acute ~09/17/16 Shortness of breath Acute Urinary tract infection Acute
--- NOTE | 2017-08-31 12:16 | ASMTCMCOM ---
CM Note CM Note Notes: 08/31/2017 Case Management Note Met w/pt. Pt gave permission for case management to contact his brother Nando. Left VM for Nando to discuss possibly d/c to Nando's house with home care. Pt gave permission to contact son Alden who lives in [place], but pt is unable to provide phone number. Case Management unsuccessful locating Alden phone number in pt records. Spoke with Kasey Camarena on the phone. Per Kasey, pt has non triggering PASRR. Corrected PASRR in allscipts. Sent referrals to nearby facilities in [facility]. Pt regularly stays at the [facility] and is resourced through [facility]. Case Management d/c poc: to be determined. Case Management to follow. Date Signed: 08/31/2017 12:16 PM Electronically Signed By:Isha Steward RN
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
--- NOTE | 2017-08-31 16:49 | ASMTCMCOM ---
CM Note CM Note Notes: 08/31/2017 Case Management Note Phone call from cousin Tammy Benitez [phone]. She is unable to financially contribute to pt at this time. She has a son with bipolar who lives with her and family visiting from the [place] for the summer. She is not able to have pt come stay at her house. She reports there are no other family members in the area to help patient. Case Management d/c poc: [facility] Case Management to follow. Date Signed: 08/31/2017 04:48 PM Electronically Signed By:Isha Steward RN
--- NOTE | 2017-08-31 20:08 | HOSPPROG ---
Hospitalist Progress Note Assessment/Plan: 66 yo M w sepsis, complicated uti, cdiff, luis fernando # cdiff: po vanco continued for now, diarrhea increased overnight after having slowed down, discussed with ID and no real indication to increase vanco dose at this time, likely just needs more time # sepsis: septic physiology has improved, in setting of c diff and UTI # Hypotension: BP improved to the low normal range, good urine output # ? UTI: in the setting of urostomy in place and abnormal UA on arrival, also with e/o sepsis on arrival. Has hx of mrsa UTI in past, started on IV vanc/ctx but no urine culture obtained on arrival. Appreciate ID input, IV vanc/CTX discontinued on 08/29 and doing well thus far # LUIS FERNANDO: pre renal, improved # urostomy: wound care seeing # Hypoxemia--mild and suspect largely related to immobility/atelectasis, as next # deconditioning: patient with very limited mobility at this point and will need placement after dc, CM involved, pt/ot working with patient #proph: lmwh #dispo: inpt, will likely be ready to dc in coming days if snf found Subjective: no significant overnight events patient with increased diarrhea since yesterda Objective: Vital Signs Temp Pulse Resp BP Pulse Ox 36.6 C 88 18 135/84 H 96 08/31/17 15:51 08/31/17 19:48 08/31/17 19:48 08/31/17 19:49 08/31/17 19:48 Laboratory Results 08/31/17 04:15 08/31/17 18:00 08/30/17 08/31/17 09/01/17 05:59 05:59 05:59 Intake Total 3695 1920 1800 Output Total 4670 4850 1475 Balance -975 -2930 325 PT 14.8 SEC (12.0-15.0) 08/25/17 04:30 INR 1.14 (0.83-1.16) 08/25/17 04:30 awake alert nad anicteric op clear rrr no mrg cta b soft nt nd no cce warm dry well perfused oriented approriate ICD10 Worksheet Patient Problems: Problems Problem Status Onset Sepsis Acute Syncope Acute Abdominal pain Acute Bladder cancer Acute Edema Acute Gross hematuria Acute Hydronephrosis, left Acute MRSA (methicillin resistant Staphylococcus aureus) Acute ~09/17/16 Shortness of breath Acute Urinary tract infection Acute
[2017-08-31] MEDS: ONDANSETRON 4 MG/2 ML VIAL IVP PRN (22:31)
[2017-09-01] MEDS: ONDANSETRON 4 MG/2 ML VIAL IVP PRN ×3 (06:04→18:36)
[2017-09-01] MEDS: VANCOMYCIN 125 MG/2.5 ML UDL PO SCH ×4 (06:04→21:11)
[2017-09-01] MEDS: IPRATROPIUM/ALBUTEROL 4GM MDI IH SCH ×4 (06:14→21:42)
[2017-09-01] MEDS ORDERED: POTASSIUM CL 10 MEQ TAB PO ONE ×2 (07:50→23:30)
[2017-09-01] MEDS ORDERED: MAGNESIUM SULF 1 GM/DEXTROSE 100 ML IV ONE (08:21)
[2017-09-01] MEDS: DULoxetine 30 MG CAP PO SCH ×2 (08:54→21:11)
[2017-09-01] MEDS: LIDO/ZINC OX/CLOTRIMAZOLE (MAD) 116 GM CREAM TP SCH ×2 (08:55→21:11)
[2017-09-01] MEDS: ENOXAPARIN 40 MG/0.4 ML SYR SC SCH (08:55)
--- NOTE | 2017-09-01 11:41 | PCMIDPN ---
Assessment/Plan: Cdiff colitis, wbc normal yesterday, never had fever. Still with significant diarrhea and abdominal pain --continue PO vancomycin --again, reassured patient that needs more time --check labs tomorrow AM Question of UTI vs wound infection s/p 5 days of ceftriaxone + vanco IV now off 3 days meds vancomycin 125mg QID, #7 Subjective: Still frustrated with persistent diarrhea Objective: Vital Signs Temp Pulse Resp BP Pulse Ox 36.7 C 92 18 102/66 94 09/01/17 07:21 09/01/17 11:01 09/01/17 11:01 09/01/17 07:21 09/01/17 11:01 Laboratory Results 08/31/17 04:15 09/01/17 06:00 08/31/17 09/01/17 09/02/17 05:59 05:59 05:59 Intake Total 1920 2800 1120 Output Total 4850 4325 Balance -2930 -1525 1120 - Physical Exam General Appearance: alert, no apparent distress EENT: poor dentition Respiratory: lungs clear, No accessory muscle use Cardiac/Chest: regular rate, rhythm Abdomen: soft, distended (Mild), other (Right lower quadrant urostomy, healthy- appearing), No normal bowel sounds (Hyperactive bowel sounds), No peritoneal signs Skin: warm/dry, No diaphoresis, No rash Neuro/Psych: alert, normal mood/affect, oriented x 3 - Time Spent With Patient Time Spent with Patient: greater than 25 minutes Time Spent with Patient: Greater than 25 minutes spent on this patients care, greater than 50% of time spent counseling, educating, and coordinating care regarding the above mentioned plan. ICD10 Worksheet Patient Problems: Problems Problem Status Onset Sepsis Acute Syncope Acute Abdominal pain Acute Bladder cancer Acute Edema Acute Gross hematuria Acute Hydronephrosis, left Acute MRSA (methicillin resistant Staphylococcus aureus) Acute ~09/17/16 Shortness of breath Acute Urinary tract infection Acute
--- NOTE | 2017-09-01 15:01 | HOSPPROG ---
Hospitalist Progress Note Assessment/Plan: Subjective Follow-up on C diff colitis and suspected urinary infection. Patient completed a course of ceftriaxone and vancomycin. He was subsequently diagnosed with C diff colitis and was started on oral vancomycin. He continues to have loose stools. When I went in to see him today he asked me to call his nurse as he just had a loose bowel movement. I reviewed his case with Dr. Zarco with Infectious Disease today as well. Objective Vital Signs Temperature 36.7 blood pressure 102/66 heart rate 95 respirations 16 satting 92 % on 2 L nasal cannula Physical exam General-patient mildly uncomfortable secondary to she is having a bowel movement in his bed but he was awake alert conversant. Heart-irregularly irregular Lungs-clear on auscultation Abdomen-nondistended slightly hyperactive bowel sounds -no Schwab catheter in place Extremities-no significant edema Labs as detailed below Assessment and plan 1. Sepsis-this appears resolved at the current time. 2. Possible urinary source of infection-patient has completed a course of ceftriaxone and vancomycin. He has had a history of MRSA in his urine. A continue to monitor clinically for and a fevers or worsening pain. 3. Clostridium difficile colitis-appreciate Infectious disease's assistance on the case. Continue with current oral vancomycin. 4. Acute kidney injury-resolved. 5. Acute hypoxic respiratory failure-continue current supplemental oxygen. Possibly atelectasis related. Wean as able. 6. Hypomagnesemia-replace and recheck tomorrow morning. 7. Atrial fibrillation-paroxysmal. not currently on any anticoagulation or anti -platelet therapy. Heart rate soft controlled. 8. Hypertension-patient is on lisinopril at home. I recommend that we continue to hold as blood pressures appear low normal at the current time. 9. Bladder cancer-patient is status post radical cysto prostatectomy with urostomy placement. 10. DVT prophylaxis-patient is on Lovenox. 11. Disposition-will see how he does with PT and OT. May need short-term rehab placement Objective: Vital Signs Temp Pulse Resp BP Pulse Ox 36.7 C 92 18 102/66 94 09/01/17 07:21 09/01/17 11:01 09/01/17 11:01 09/01/17 07:21 09/01/17 11:01 Laboratory Results 08/31/17 04:15 09/01/17 06:00 08/31/17 09/01/17 09/02/17 05:59 05:59 05:59 Intake Total 1920 2800 1120 Output Total 4850 4323 1250 Balance -2930 -1525 -130 PT 14.8 SEC (12.0-15.0) 08/25/17 04:30 INR 1.14 (0.83-1.16) 08/25/17 04:30 ICD10 Worksheet Patient Problems: Problems Problem Status Onset Sepsis Acute Syncope Acute Abdominal pain Acute Bladder cancer Acute Edema Acute Gross hematuria Acute Hydronephrosis, left Acute MRSA (methicillin resistant Staphylococcus aureus) Acute ~09/17/16 Shortness of breath Acute Urinary tract infection Acute
[2017-09-02] MEDS: HYDROCODONE/APAP 5/325 TAB PO PRN (03:28)
[2017-09-02 04:01] LABS: PLATELET COUNT 248 10^3/uL (150-400)
[2017-09-02] MEDS: VANCOMYCIN 125 MG/2.5 ML UDL PO SCH ×4 (05:54→21:02)
[2017-09-02] MEDS: IPRATROPIUM/ALBUTEROL 4GM MDI IH SCH ×4 (06:19→20:04)
[2017-09-02] MEDS ORDERED: CALCIUM GLUCONATE 50 ML IV ONE (08:18)
[2017-09-02] MEDS ORDERED: MAGNESIUM SULF 1 GM/DEXTROSE 100 ML IV ONE (08:18)
[2017-09-02] MEDS: DULoxetine 30 MG CAP PO SCH ×2 (08:35→21:01)
[2017-09-02] MEDS: ENOXAPARIN 40 MG/0.4 ML SYR SC SCH (08:40)
[2017-09-02] MEDS: LIDO/ZINC OX/CLOTRIMAZOLE (MAD) 116 GM CREAM TP SCH ×2 (08:42→21:02)
--- NOTE | 2017-09-02 11:44 | PCMIDPN ---
Assessment/Plan: Cdiff colitis, wbc normal today. Stool more formed today and less abdominal pain --continue PO vancomycin for 14 days total --call ID for additional questions Question of UTI vs wound infection s/p 5 days of ceftriaxone + vanco IV now off multiple days meds vancomycin 125mg QID, #8 Subjective: patient still bothered by abdominal cramping Objective: Vital Signs Temp Pulse Resp BP Pulse Ox 36.8 C 87 16 135/82 H 93 09/02/17 07:44 09/02/17 07:44 09/02/17 07:44 09/02/17 07:44 09/02/17 07:44 Laboratory Results 09/02/17 03:50 09/02/17 03:50 09/01/17 09/02/17 09/03/17 05:59 05:59 05:59 Intake Total 2800 3300 Output Total 4325 3200 400 Balance -1525 100 -400 General Appearance: alert, disheveled, no apparent distress EENT: poor dentition Respiratory: lungs clear, No accessory muscle use Cardiac/Chest: regular rate, rhythm Abdomen: soft, less distended , Right lower quadrant urostomy, healthy-appearing , normal bowel sounds , No peritoneal signs Skin: warm/dry, No diaphoresis, No rash Neuro/Psych: alert, normal mood/affect, oriented x 3 ICD10 Worksheet Patient Problems: Problems Problem Status Onset Sepsis Acute Syncope Acute Abdominal pain Acute Bladder cancer Acute Edema Acute Gross hematuria Acute Hydronephrosis, left Acute MRSA (methicillin resistant Staphylococcus aureus) Acute ~09/17/16 Shortness of breath Acute Urinary tract infection Acute
--- NOTE | 2017-09-02 12:40 | HOSPPROG ---
Hospitalist Progress Note Assessment/Plan: Subjective Follow-up on C diff colitis. Patient states that he is feeling better today and feels that the frequency of his bowel movements has decreased. No complaints of any worsening abdominal pain or bloating. I did confirm that it is recommended he is on a 4 L of oxygen continuous secondary to COPD. I did discuss his case with Dr. Zarco with Infectious Disease. The patient is homeless. Objective Vital signs Temperature 36.8 blood pressure 135/82 heart rate 87 respirations 16 satting 93 % on 4 L nasal cannula Physical exam General-patient appears more comfortable today. He is awake alert and conversant no acute distress Cardiac-regular rate and rhythm. No murmurs noted. Lungs-Clear to auscultation. Normal respiratory effort. Abdomen-nondistended. Again slightly hyperactive bowel sounds today. -patient is a Schwab catheter placed at his urostomy bag which has clear urine. Extremities-no significant edema Labs as detailed below Assessment and plan 1. C diff colitis-clinically I think patient is slightly better today as compared to yesterday's exam. Continue to course of vancomycin. Isolation precautions are in place. Appreciated on Infectious disease's assistance on the case. 2. Sepsis with suspected urinary source-patient has completed a course of ceftriaxone and vancomycin. He has had a history of MRSA in his urine. Monitor closely for any fevers or worsening pain. 3. Hypocalcemia replacement ordered for today. 4. Hypomagnesemia-improved today with at 1.6 which is within normal limits. 5. Atrial fibrillation-paroxysmal. Patient was in normal sinus rhythm on his initial presenting EKG. He is not on any current rate limiting agents and is not on any anticoagulation at this time. 6. Hypertension holding antihypertensives at this point time. 7. Chronic hypoxic respiratory failure secondary to COPD-continue Combivent inhaler. Patient is on 4 L at baseline. 8. Bladder cancer -patient is status post radical cysto prostatectomy and urostomy placement. 9. Depression and anxiety-patient is currently on Cymbalta. Continue. 10. DVT prophylaxis-patient is currently on Lovenox. 11. Disposition-continue work with PT and OT. Patient is reportedly homeless and may need placement depend on how he is doing in the coming days. Objective: Vital Signs Temp Pulse Resp BP Pulse Ox 36.8 C 87 16 135/82 H 93 09/02/17 07:44 09/02/17 07:44 09/02/17 07:44 09/02/17 07:44 09/02/17 07:44 Laboratory Results 09/02/17 03:50 09/02/17 03:50 09/01/17 09/02/17 09/03/17 05:59 05:59 05:59 Intake Total 2800 3300 Output Total 4325 3200 400 Balance -1525 100 -400 PT 14.8 SEC (12.0-15.0) 08/25/17 04:30 INR 1.14 (0.83-1.16) 08/25/17 04:30 ICD10 Worksheet Patient Problems: Problems Problem Status Onset Sepsis Acute Syncope Acute Abdominal pain Acute Bladder cancer Acute Edema Acute Gross hematuria Acute Hydronephrosis, left Acute MRSA (methicillin resistant Staphylococcus aureus) Acute ~09/17/16 Shortness of breath Acute Urinary tract infection Acute
[2017-09-02] MEDS ORDERED: POTASSIUM CL 10 MEQ TAB PO ONE (19:56)
[2017-09-02] MEDS: NS 1,000 ML IV SCH (23:29)
[2017-09-03 04:18] LABS: PLATELET COUNT 269 10^3/uL (150-400)
[2017-09-03] MEDS: IPRATROPIUM/ALBUTEROL 4GM MDI IH SCH ×4 (06:01→21:49)
[2017-09-03] MEDS: VANCOMYCIN 125 MG/2.5 ML UDL PO SCH ×4 (06:01→20:14)
[2017-09-03] MEDS: DULoxetine 30 MG CAP PO SCH ×2 (08:47→20:14)
[2017-09-03] MEDS: ENOXAPARIN 40 MG/0.4 ML SYR SC SCH (08:47)
[2017-09-03] MEDS: NS 1,000 ML IV SCH ×2 (08:48→20:13)
[2017-09-03] MEDS: LIDO/ZINC OX/CLOTRIMAZOLE (MAD) 116 GM CREAM TP SCH ×2 (08:56→20:16)
[2017-09-03] MEDS ORDERED: POTASSIUM CL 10 MEQ TAB PO ONE (15:30)
[2017-09-03] MEDS ORDERED: MAGNESIUM SULF 1 GM/DEXTROSE 100 ML IV ONE (15:32)
--- NOTE | 2017-09-03 17:01 | HOSPPROG ---
Hospitalist Progress Note Assessment/Plan: Subjective Follow-up on C diff colitis Patient states that his bowels seem to have a little more consistency now as compared to days prior. No acute events overnight. No new complaints today. Objective Vital signs Temperature 36.8 blood pressure 140/82 heart rate 72 respirations 16 satting 96 % on room air Physical exam General-patient appears more comfortable today than in days prior. He is awake alert conversant no acute distress. Trying to have some lunch this afternoon. Cardiac-regular rate and rhythm Lungs-Clear to auscultation with normal respiratory effort. Abdomen-nondistended and nontender. Slightly hyperactive bowel sounds. -Schwab catheter placed at his urostomy bag which shows clear urine Extremities-no significant pitting edema appreciated Labs as detailed below Assessment and plan 1. C diff colitis-id the patient has continued to improve slowly each day. Continue the course of vancomycin. Isolation precautions are in place I appreciate Infectious disease's assistance on the case. 2. Sepsis with suspected urinary source-this was the initial indication for admission to the hospital. Patient has completed a course of ceftriaxone and vancomycin. He has had a history of MRSA in his urine. Monitor closely for any fevers or worsening pain. 3. Hypocalcemia-improved today high ionized calcium is within normal limits. Will continue with checking electrolytes in the morning for now as he has had low magnesium as well. 4. Atrial fibrillation-paroxysmal. Patient was in normal sinus rhythm on his initial presenting EKG and has been in normal sinus rhythm on my exam is. He is not on any rate limiting agents and he is not on any anticoagulation at this time. 5. Hypertension-holding antihypertensives at this time however his blood pressure seemed to be trending up and we may need to resume. 6. Chronic hypoxic respiratory failure secondary to COPD-patient is at his baseline oxygen need to 4 L continuous. Continue Combivent inhaler. 7. Bladder cancer-patient is status post radical cysto prostatectomy with urostomy placement. 8. Depression-continue current Cymbalta. 9. DVT prophylaxis-patient is currently on Lovenox. 10. Disposition-the patient is homeless. We are looking at placement in a [facility] facility. Objective: Vital Signs Temp Pulse Resp BP Pulse Ox 36.9 C 108 H 18 145/94 H 95 09/03/17 15:26 09/03/17 15:26 09/03/17 15:26 09/03/17 15:26 09/03/17 15:26 Laboratory Results 09/03/17 04:00 09/03/17 04:00 09/02/17 09/03/17 09/04/17 05:59 05:59 05:59 Intake Total 3300 1540 Output Total 3200 2300 2650 Balance 100 -760 -2650 PT 14.8 SEC (12.0-15.0) 08/25/17 04:30 INR 1.14 (0.83-1.16) 08/25/17 04:30 ICD10 Worksheet Patient Problems: Problems Problem Status Onset Sepsis Acute Syncope Acute Abdominal pain Acute Bladder cancer Acute Edema Acute Gross hematuria Acute Hydronephrosis, left Acute MRSA (methicillin resistant Staphylococcus aureus) Acute ~09/17/16 Shortness of breath Acute Urinary tract infection Acute
[2017-09-04] MEDS: IPRATROPIUM/ALBUTEROL 4GM MDI IH SCH ×4 (05:08→20:18)
[2017-09-04] MEDS: VANCOMYCIN 125 MG/2.5 ML UDL PO SCH ×4 (05:51→21:54)
[2017-09-04 05:57] LABS: PLATELET COUNT 291 10^3/uL (150-400)
[2017-09-04] MEDS: DULoxetine 30 MG CAP PO SCH ×2 (08:34→21:55)
[2017-09-04] MEDS: ENOXAPARIN 40 MG/0.4 ML SYR SC SCH (08:34)
[2017-09-04] MEDS: LIDO/ZINC OX/CLOTRIMAZOLE (MAD) 116 GM CREAM TP SCH ×2 (08:38→21:56)
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
--- NOTE | 2017-09-04 13:21 | ASMTCMCOM ---
CM Note CM Note Notes: DC plan still to go to [facility] when medically ready. Updated Erlinda at [facility].CM will follow. Date Signed: 09/04/2017 01:20 PM Electronically Signed By:Gail Magaña RN
[2017-09-04] MEDS: BUDESONIDE/FORMOTEROL 80/4.5 60 PUFFS/MDI IH SCH ×2 (17:22→19:40)
[2017-09-05] MEDS: HYDROCODONE/APAP 5/325 TAB PO PRN ×2 (02:19→09:00)
[2017-09-05] MEDS: VANCOMYCIN 125 MG/2.5 ML UDL PO SCH ×4 (05:00→21:19)
[2017-09-05] MEDS: IPRATROPIUM/ALBUTEROL 4GM MDI IH SCH ×4 (06:12→20:40)
[2017-09-05] MEDS: DULoxetine 30 MG CAP PO SCH ×2 (09:00→21:19)
[2017-09-05] MEDS: LIDO/ZINC OX/CLOTRIMAZOLE (MAD) 116 GM CREAM TP SCH ×2 (09:02→21:19)
[2017-09-05] MEDS: ENOXAPARIN 40 MG/0.4 ML SYR SC SCH (09:16)
[2017-09-05] MEDS: BUDESONIDE/FORMOTEROL 80/4.5 60 PUFFS/MDI IH SCH ×2 (09:17→20:40)
--- NOTE | 2017-09-05 12:52 | PDIAF ---
- Diagnosis Diagnosis: C diff, COPD Code Status: Full Code - Medication Management Discharge Medications: Medications to Continue on Transfer DULoxetine [Cymbalta 30 MG (*)] 30 mg PO BID 08/24/17 [Last Taken Unknown] Lisinopril [Zestril 10 mg (*)] 10 mg PO DAILY 08/24/17 [Last Taken Unknown] Budesonide/Formoterol 80/4.5 [Symbicort 80-4.5 Mcg Inhaler] 2 puffs IH BID #1 mdi 09/05/17 [Last Taken Unknown] Ipratropium/Albuterol [Combivent Respimat Inhal [place](*)] 1 inh IH QID #120 mdi 09/05/17 [Last Taken Unknown] Vancomycin [Vancocin Oral Liquid] 125 mg PO QID #16 udl 09/05/17 [Last Taken Unknown] Discharge Medications: Refer to the Discharge Home Medication list for PRN reason. PICC Care - Routine: N/A - Orders Services needed: Registered Nurse, Physical Therapy, Occupational Therapy Isolation Type: CDIFF Isolation, Contact Isolation Oxygen: 3 LPM Diet Recommendation: no restrictions on diet - Follow Up Care Current Providers and Referrals: Patient,NotPresent [Unknown] - As per Instructions MAT WHEATLEY [Primary Care Provider] -
--- NOTE | 2017-09-05 14:36 | WOCRNPDOC ---
WOCRN Advanced Assessment Note - Urostomy Assessment, Advanced Right Abdomen Urostomy Appliance Intact: No Urostomy Appliance Currently in Use: Two Piece Flat, 2 1/4, Cut to Fit Stoma Color: Red Stoma Turgor: Moist, Shiny Stoma Shape: Oval Stoma Height: Protruding Mucocutaneus Junction: Intact Urostomy Effluent: Urine Urostomy Details: Ileal Conduit Peristomal Skin: Intact (but scarred ) Urostomy Comment/Treatment Details: Ostomy appliance leaking. Automation Manager created a new template and changed appliance. Christina stomal skin with scarring from previous areas of breakdown and moisture issues from urine on the skin. No open areas at this time. Standard ostomy supplies from clean supply room work well for this stoma. consulting technical director is not needed and will sign off.
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
--- NOTE | 2017-09-05 21:07 | HOSPPROG ---
Hospitalist Progress Note Assessment/Plan: C diff colitis- cont vanc, day 02/27 Sepsis with suspected urinary source- H/O MRSA in his urine. S/P Ceftriaxone and IV Vanc. Hypocalcemia-improved Atrial fibrillation-paroxysmal. Remains in sinus by auscultation. He is neither AV silvana blockers nor anti-coagulation. Hypertension-holding antihypertensives at this time -resume as indicated Chronic hypoxic respiratory failure secondary to COPD- patient is at his baseline oxygen need to 3-4 L continuous. -cont duonebs -addedsymbicort Metabolic alkalosis - suspect CO2 retention. If mentation changes, will check ABG -cont to trend Bladder cancer-patient is status post radical cysto prostatectomy with urostomy placement. -excellent uop, d/c IVF's Depression-continue current Cymbalta. DVT prophylaxis- Lovenox. Disposition-the patient is homeless. We are looking at placement in a halfway facility, he was to d/c to [facility] today, but they called it off at the last minute. CM working on alternative options. Subjective: Pt feels better. Stools are more formed. No abdominal pain. Breathing is at baseline. Walking in halls with PT with walker. No complaints. Objective: Vital Signs Temp Pulse Resp BP Pulse Ox 37.0 C 99 18 130/81 H 96 09/05/17 19:33 09/05/17 19:33 09/05/17 19:33 09/05/17 19:33 09/05/17 19:33 Laboratory Results 09/04/17 05:50 09/05/17 04:50 09/04/17 09/05/17 09/06/17 05:59 05:59 05:59 Intake Total 2350 1860 1200 Output Total 6150 3600 1100 Balance -3800 -1740 100 PT 14.8 SEC (12.0-15.0) 08/25/17 04:30 INR 1.14 (0.83-1.16) 08/25/17 04:30 - Physical Exam Constitutional: no apparent distress Eyes: PERRL Ears, Nose, Mouth, Throat: moist mucous membranes Cardiovascular: regular rate and rhythym Respiratory: no respiratory distress, reduced air movement Gastrointestinal: normoactive bowel sounds, soft, non-tender abdomen Skin: warm Musculoskeletal: full muscle strength Neurologic: AAOx3 Psychiatric: interacting appropriately ICD10 Worksheet Patient Problems: Problems Problem Status Onset Sepsis Acute Syncope Acute Abdominal pain Acute Bladder cancer Acute Edema Acute Gross hematuria Acute Hydronephrosis, left Acute MRSA (methicillin resistant Staphylococcus aureus) Acute ~09/17/16 Shortness of breath Acute Urinary tract infection Acute
[2017-09-06] MEDS: IPRATROPIUM/ALBUTEROL 4GM MDI IH SCH ×3 (05:48→16:21)
[2017-09-06] MEDS: VANCOMYCIN 125 MG/2.5 ML UDL PO SCH ×3 (05:49→16:17)
[2017-09-06] MEDS: BUDESONIDE/FORMOTEROL 80/4.5 60 PUFFS/MDI IH SCH (08:59)
[2017-09-06] MEDS ORDERED: LISINOPRIL 5 MG TAB PO SCH (09:00)
[2017-09-06] MEDS: DULoxetine 30 MG CAP PO SCH (10:33)
[2017-09-06] MEDS: ENOXAPARIN 40 MG/0.4 ML SYR SC SCH (10:33)
[2017-09-06] MEDS: LIDO/ZINC OX/CLOTRIMAZOLE (MAD) 116 GM CREAM TP SCH (10:34)
--- NOTE | 2017-09-06 10:42 | HOSPPROG ---
Hospitalist Progress Note Assessment/Plan: C diff colitis- cont vanc, day 03/29 Sepsis with suspected urinary source- H/O MRSA in his urine. S/P Ceftriaxone and IV Vanc. Hypocalcemia-improved Atrial fibrillation-paroxysmal. Remains in sinus by auscultation. He is neither AV silvana blockers nor anti-coagulation. Hypertension- anti-hypertensives initially held due to low BP's -resume lisinopril at lower dose Chronic hypoxic respiratory failure secondary to COPD - Note significant history of smoking meth. Patient is at his baseline oxygen need to 3-4 L continuous. -cont duonebs -added symbicort -needs ongoing O2 Metabolic alkalosis - suspect CO2 retention. If mentation changes, will check ABG -cont to trend Bladder cancer-patient is status post radical cysto prostatectomy with urostomy placement. -excellent uop Depression-continue current Cymbalta. DVT prophylaxis- Lovenox. Disposition-the patient is homeless. [facility] called off transfer as pt was loaded into the transport vehicle. DIscussed placement options with pt and CM RN. It would be sub-optimal to d/c to the street with his O2 needs and overall debility. CM working on placement options. Subjective: Pt is disappointed about being declined at the last minute by [facility]. Spirits are low this am. Breathing at baseline. No abdominal pain. Stools more formed. No fevers. Eating, ambulating. Objective: Vital Signs Temp Pulse Resp BP Pulse Ox 36.6 C 90 18 127/80 H 94 09/06/17 08:00 09/06/17 09:00 09/06/17 09:00 09/06/17 10:32 09/06/17 09:00 Laboratory Results 09/04/17 05:50 09/05/17 04:50 09/05/17 09/06/17 09/07/17 05:59 05:59 05:59 Intake Total 1860 1700 500 Output Total 3600 2450 550 Balance -1740 -750 -50 PT 14.8 SEC (12.0-15.0) 08/25/17 04:30 INR 1.14 (0.83-1.16) 08/25/17 04:30 - Physical Exam Constitutional: no apparent distress Eyes: PERRL Ears, Nose, Mouth, Throat: moist mucous membranes Cardiovascular: regular rate and rhythym Respiratory: no respiratory distress, reduced air movement Gastrointestinal: normoactive bowel sounds, soft, non-tender abdomen Skin: warm Musculoskeletal: full muscle strength Neurologic: AAOx3 Psychiatric: interacting appropriately ICD10 Worksheet Patient Problems: Problems Problem Status Onset Sepsis Acute Syncope Acute Abdominal pain Acute Bladder cancer Acute Edema Acute Gross hematuria Acute Hydronephrosis, left Acute MRSA (methicillin resistant Staphylococcus aureus) Acute ~09/17/16 Shortness of breath Acute Urinary tract infection Acute
--- NOTE | 2017-09-06 12:26 | ASMTCMCOM ---
CM Note CM Note Notes: Met with patient to review discharge plan of care. Patient expresses disappointment over events of yesterday. More referrals placed in allscripts. Discussed need to widen search area with patient and physician. Patient wishes to stay closer to his son but understands that he needs care and is not appropriate to dc to the street. CM to follow. Plan: to SNF Date Signed: 09/06/2017 12:25 PM Electronically Signed By:Harika Doe RN
--- NOTE | 2017-09-06 15:02 | PDIAF ---
- Diagnosis Diagnosis: C diff, COPD Code Status: Full Code - Medication Management Discharge Medications: Medications to Continue on Transfer DULoxetine [Cymbalta 30 MG (*)] 30 mg PO BID 08/24/17 [Last Taken Unknown] Budesonide/Formoterol 80/4.5 [Symbicort 80-4.5 Mcg Inhaler] 2 puffs IH BID #1 mdi 09/05/17 [Last Taken Unknown] Ipratropium/Albuterol [Combivent Respimat Inhal [place](*)] 1 inh IH QID #120 mdi 09/05/17 [Last Taken Unknown] Vancomycin [Vancocin Oral Liquid] 125 mg PO QID #16 udl 09/05/17 [Last Taken Unknown] Lisinopril [Zestril 5 mg (*)] 5 mg PO DAILY #30 tab 09/06/17 [Last Taken Unknown ] Discharge Medications: Refer to the Discharge Home Medication list for PRN reason. PICC Care - Routine: N/A - Orders Services needed: Registered Nurse, Physical Therapy, Occupational Therapy Isolation Type: CDIFF Isolation, Contact Isolation Oxygen: 3 LPM Diet Recommendation: no restrictions on diet - Follow Up Care Current Providers and Referrals: MAT WHEATLEY [Primary Care Provider] - Patient,NotPresent [Unknown] - As per Instructions
--- NOTE | 2017-09-06 15:45 | ASMTCMCOM ---
CM Note CM Note Notes: Per Luis Burnham Clinical liaison for [facility] patient accepted to [facility] in [place]. They need 5 days of urostomy supplies and RN aware. Spoke to patient and his son Austen ([phone]). Patient has STM impairment but is able to recall he is going to [place]. He would prefer to stay local but not accepted at local facilities,. Final orders via allscripts, PASSR sent. PCS form done, face sheet ready. smoke jumper supervisor at 16:30. RN aware and has number to [facility] to call report. CM available should other needs arise. Plan: To SNF at [facility] in [place] Date Signed: 09/06/2017 03:44 PM Electronically Signed By:Harika Doe RN
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
[2017-09-06 16:17] VITALS: BP 121/85
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
== END 2017-09-06 16:44 | DRG 872 ==
LOC: EDUNIT# → F2N 13:35 → F1N 08-25 19:21 → UNDODISIN 09-05 14:58
PROVIDERS: ADMIT Internal Medicine; ATTEND Internal Medicine
PROC: 02HV33Z Insertion of Infusion Device into Superior Vena Cava, Percutaneous Approach (ICD-10-PCS; principal; 2017-08-27)
DX: A41.9 Sepsis, unspecified organism (principal); N39.0 Urinary tract infection, site not specified; A04.72 Enterocolitis due to Clostridium difficile, not specified as recurrent; J96.11 Chronic respiratory failure with hypoxia; E87.3 Alkalosis; E83.51 Hypocalcemia; I48.0 Paroxysmal atrial fibrillation; I10 Essential (primary) hypertension; J44.9 Chronic obstructive pulmonary disease, unspecified; F32.9 Major depressive disorder, single episode, unspecified; R19.7 Diarrhea, unspecified; E83.42 Hypomagnesemia; Z99.81 Dependence on supplemental oxygen; Z59.0 Homelessness; Z86.14 Personal history of Methicillin resistant Staphylococcus aureus infection; Z88.0 Allergy status to penicillin; Z90.79 Acquired absence of other genital organ(s); Z85.51 Personal history of malignant neoplasm of bladder
CPT/HCPCS: 97116-GP; 97162-GP; 97166-GO; 97530-GP; 97535-GO; C1751; G8978-GP-CL; G8979-GP-CJ; G8987-GO-CK; G8988-GO-CJ; J0610; J0696; J1650; J2405; J2997; J3370; J3475

== ENCOUNTER 2018-04-27 09:34 | Emergency (ER) | payer OTHER, MEDICAID ==
[2018-04-27 09:41] VITALS: BP 117/72
--- NOTE | 2018-04-27 09:47 | EDPHY ---
H & P Stated Complaint: Urostomy eval, no supplies and poss infection etc Time Seen by Provider: 04/27/18 09:41 HPI/ROS: HPI: This is a 67-year-old male who presents with Chief Complaint: Urostomy eval, no supplies and poss infection etc Location: Urostomy Quality: Requesting supplies Duration: 1 week Signs and Symptoms: no fever, no nausea, no vomiting, no hematemesis, no blood in stool, no abdominal bloating, no diarrhea, no back pain, no urinary symptoms , no testicular/groin pain, no indigestion, no chest pain, no shortness of breath, no skin color changes Timing: Acute on chronic Severity: Mild Context: Patient has a history of bladder cancer with urostomy placed [address] Mercedes, presents with one-week history of not having his urostomy bag or wafer. Patient has been using a depends pole up to soak up the urine for the last week. Patient is followed at the [facility] and reports that the nurse ordered the wrong size wait for and supplies therefore he was unable to use it. Patient reports that he normally uses a 2 and a quarter-inch wafer. He denies any fever, nausea, vomiting, diarrhea, abdominal pain. Modifying Factors: Comment: ROS: A comprehensive 10 system review of systems is otherwise negative aside from elements mentioned in the history of present illness. MEDICAL/SURGICAL/SOCIAL HISTORY: Medical/surgical history: bladder ca with urostomy placed 2018 dr mercedes, hernia surg. bilateral knee surgeries, left hip surgery, appy, bladder CA w nephrostomy & urostomy, arthritis, prostate ca, copd, history MRSA Social history: Homeless. Family history noncontributory. CONSTITUTIONAL: Elderly white male who appears nontoxic, strong urine smell, awake and alert, no obvious distress HEENT: Atraumatic and normocephalic, PERRL, EOMI. Nares patent; no rhinorrhea; no nasal mucosal edema. Tympanic membranes clear. Oropharynx clear, no exudate and moist pink mucosa. Airway patent. No lymphadenopathy. No meningismus. Cardiovascular: Normal S1/S2, regular rate, regular rhythm, without murmur rub or gallop. PULMONARY/CHEST: Symmetrical and nontender. Clear to auscultation bilaterally. Good air movement. No accessory muscle usage. ABDOMEN: Soft, protuberant, nontender, no rebound, no guarding, no peritoneal signs, no masses or organomegaly. No CVAT. Bowel sounds heard x4 quadrants. Urostomy stoma site in the right lower quadrant is pink/viable/good perfusion and no signs of erythema, discharge, foul order. Draining yellow urine. EXTREMITIES: 2/2 pulses, strength 5/5, no deformities, no clubbing, no cyanosis or edema. NEUROLOGICAL: no focal neuro deficits. GCS 15. SKIN: Warm and dry, no erythema. no rash. Good capillary refill. Source: Patient, RN/MD, Old records Exam Limitations: No limitations - Personal History Tetanus Vaccine Date: 2014 - Medical/Surgical History Hx Asthma: No Hx Chronic Respiratory Disease: No Hx Diabetes: No Hx Cardiac Disease: No Hx Renal Disease: Yes Hx Cirrhosis: No Hx Alcoholism: No Hx HIV/AIDS: No Hx Splenectomy or Spleen Trauma: No Other PMH: bladder ca with urostomy placed 2017 dr mercedes, hernia surg. bilateral knee surgeries, left hip surgery, appy, bladder CA w nephrostomy & urostomy, arthritis, prostate ca, copd - Social History Smoking Status: Current some day smoker Constitutional: Initial Vital Signs Temperature (C) 37.3 C 04/27/18 09:37 Heart Rate 84 04/27/18 09:37 Respiratory Rate 16 04/27/18 09:37 Blood Pressure 117/72 04/27/18 09:37 O2 Sat (%) 97 04/27/18 09:37 O2 Delivery Mode Room Air Allergies/Adverse Reactions: Penicillins Allergy (Verified 10/29/17 11:18) Home Medications: Medication Instructions Recorded NK [No Known Home Meds] 04/27/18 Medical Decision Making ED Course/Re-evaluation: Vital signs reviewed and stable upon arrival. No systemic signs. There are no signs of ostomy site infection/sepsis. Urine is probably chronically colonized and there is no benefit for urinalysis as patient is asymptomatic. Area cleaned with soap and water. Urostomy wafer and bag applied. Case management consult for supplies. sow manager, Kasey, contact [facility] who will follow up with the patient on Sunday or Sunday and reorder his supplies. Patient will follow up with [facility]. This patient was seen under the supervision of my secondary supervising physician. I evaluated care for this patient with attending. Discussed this patient with Dr. Barkley who did not see the patient. Differential Diagnosis: Differential diagnosis includes but is not limited to ostomy supplies. Departure - Departure Disposition: Home, Routine, Self-Care Clinical Impression: History of urostomy, Encounter for examination of surgical site Condition: Good Instructions: Urostomy Care (ED) Additional Instructions: Please continue with urostomy care as directed. Follow-up with the [facility] for urostomy supplies. Referrals: MAT WHEATLEY [Primary Care Provider] - As per Instructions Silvano Mercedes MD [Medical Doctor] - As per Instructions
== END 2018-04-27 10:25 | disposition home or self-care (01) ==
DX: Z43.6 Encounter for attention to other artificial openings of urinary tract (principal); Z59.0 Homelessness; Z85.51 Personal history of malignant neoplasm of bladder

== ENCOUNTER 2018-04-30 01:58 | Inpatient (IN) | payer OTHER, MEDICAID ==
[2018-04-30] MEDS ORDERED: ONDANSETRON 4 MG/2 ML VIAL IVP ONE (02:05)
[2018-04-30] MEDS ORDERED: HYDROmorphONE/DILAUDID 2 MG/ML INJ IVP ONE (02:05)
[2018-04-30] MEDS ORDERED: NS 1,000 ML IV ONE (02:05)
--- NOTE | 2018-04-30 02:10 | EDPHY ---
H & P Time Seen by Provider: 04/30/18 02:08 HPI/ROS: HPI CHIEF COMPLAINT: Abdominal pain. HISTORY OF PRESENT ILLNESS: 67-year-old male [facility] hr of abdominal pain he complains of periumbilical abdominal pain. Sharp stabbing. Nonradiating. Progressively gotten worse over last 2 hr. No vomiting no diarrhea. Denies fever. Does state that he indeed his urostomy earlier tonight had a foul smell to it. Past Medical History: Significant medical history for bladder cancer, sepsis, C diff, hypoxic respiratory failure, hypertension, COPD Past Surgical History: Appendectomy, inguinal hernia repair, bladder CA with ureteral diversion urostomy Social History: Denies drugs alcohol tobacco. Homeless. Family History: Noncontributory ROS REVIEW OF SYSTEMS: 10 Systems were reviewed and negative with the exception of the elements mentioned in the history of present illness. Exam Constitutional disheveled, however nontoxic triage nursing summary reviewed, vital signs reviewed, awake/alert. Afebrile Eyes normal conjunctivae and sclera, EOMI, PERRLA. HENT normal inspection, atraumatic, moist mucus membranes, no epistaxis, neck supple/ no meningismus, no raccoon eyes. Respiratory clear to auscultation bilaterally, normal breath sounds, no respiratory distress, no wheezing. Cardiovascular rate normal, regular rhythm, no murmur, no edema, distal pulses normal. Gastrointestinal mild tender palpation lower abdomen no peritoneal signs, urostomy right lower quadrant, no rebound, no guarding, normal bowel sounds, no distension, no pulsatile mass. Genitourinary no CVA tenderness. Musculoskeletal no midline vertebral tenderness, full range of motion, no calf swelling, no tenderness of extremities, no meningismus, good pulses, neurovascularly intact. Skin pink, warm, & dry, no rash, skin atraumatic. Neurologic awake, alert and oriented x 3, AAOx3, moves all 4 extremities equally, motor intact, sensory intact, CN II-XII intact, normal cerebellar, normal vision, normal speech. Psychiatric normal mood/affect. Heme/Lymph/Immune no lymphadenopathy. Differential Diagnosis: Differential diagnosis includes but is not limited to and in no particular order: Bowel obstruction, appendicitis, gallbladder disease, diverticulitis, colitis, enteritis, perforated viscus, gastritis, GERD , esophagitis, urinary tract infection, pyelonephritis, kidney stones, UTI, sepsis Medical Decision Making: Plan for this patient IV establishment, IV fluid bolus , basic blood work, urinalysis, KUB for obstructive pathology and re-evaluate. Of note this patient was seen here on April 27 for new urostomy supplies before that he was using a depends to help soak up his urine. Re-evaluation: KUB reviewed shows abnormal bowel gas patterns. Concerning for bowel obstruction. Given patient's previous surgical history will perform CT scan abdomen pelvis with IV contrast. CT scan abdomen pelvis with IV contrast shows SBO. Consult General surgery for SBO management. 0300: Consult General surgery Dr. Garrett for SBO. Will see and evaluate the patient. Patient is not vomiting. Patient resting comfortably no acute distress. Source: Patient, EMS - Personal History Tetanus Vaccine Date: 2014 - Medical/Surgical History Hx Asthma: No Hx Chronic Respiratory Disease: No Hx Diabetes: No Hx Cardiac Disease: No Hx Renal Disease: Yes Hx Cirrhosis: No Hx Alcoholism: No Hx HIV/AIDS: No Hx Splenectomy or Spleen Trauma: No Other PMH: bladder ca with urostomy placed 2017 dr duque, hernia surg. bilateral knee surgeries, left hip surgery, appy, bladder CA w nephrostomy & urostomy, arthritis, prostate ca, copd - Social History Smoking Status: Current some day smoker Constitutional: Initial Vital Signs Temperature (C) 36.6 C 04/30/18 02:07 Heart Rate 88 04/30/18 02:07 Respiratory Rate 18 04/30/18 02:07 Blood Pressure 148/95 H 04/30/18 02:07 O2 Sat (%) 93 04/30/18 02:07 O2 Delivery Mode Room Air O2 (L/minute) 2 Allergies/Adverse Reactions: No Known Allergies Allergy (Verified 04/30/18 14:18) Home Medications: Medication Instructions Recorded DULoxetine [Cymbalta 30 MG (*)] 30 mg PO BID 04/30/18 Lisinopril [Zestril 10 mg (*)] 10 mg PO DAILY 04/30/18 Meloxicam 7.5 mg PO BID 04/30/18 Medical Decision Making - Data Points Laboratory Results: Laboratory Results 04/30/18 02:00 04/30/18 02:00 Medications Given: Hydromorphone HCl (Dilaudid) 0.5 mg IVP Q4HRS PRN PRN Reason: Pain,severe Stop: 05/10/18 04:49 Last Admin: 04/30/18 05:06 Dose: 0.5 mg Lactated Ringer's (Lr) 1,000 mls @ 100 mls/hr IV CONT SAGAR Stop: 10/27/18 04:59 Last Admin: 04/30/18 05:12 Dose: 1,000 mls Cefoxitin Sodium 1 gm/ Sodium (Chloride) 50 mls @ 200 mls/hr IV Q6HRS SAGAR PRN Reason: Protocol Stop: 05/04/18 11:59 Last Admin: 04/30/18 17:47 Dose: 50 mls Potassium Chloride/Dextrose/Sod Cl (D5w 1/2 Ns W/ 20 Kcl/L) 1,000 mls @ 75 mls/ hr IV CONT SAGAR Stop: 10/27/18 08:59 Last Admin: 04/30/18 12:57 Dose: 1,000 mls Oxycodone/Acetaminophen (Percocet 5/325) 1 - 2 tab PO Q4 PRN PRN Reason: Pain, Severe Able to Take PO Stop: 05/10/18 08:47 Last Admin: 04/30/18 19:58 Dose: 2 tab Discontinued Medications Bupivacaine HCl (Sensorcaine 0.5% Vial) Confirm Administered Dose 30 ml .ROUTE .STK-MED ONE Stop: 04/30/18 04:39 Last Admin: 04/30/18 07:18 Dose: 30 ml Hydromorphone HCl (Dilaudid) 0.5 mg IVP EDNOW ONE Stop: 04/30/18 02:06 Last Admin: 04/30/18 02:12 Dose: 0.5 mg Sodium Chloride (Ns) 1,000 mls @ 0 mls/hr IV EDNOW ONE; Wide Open PRN Reason: Protocol Stop: 04/30/18 02:06 Last Admin: 04/30/18 02:12 Dose: 1,000 mls Cefoxitin Sodium 2 gm/ Sodium (Chloride) 100 mls @ 200 mls/hr IV ONCALL ONE Stop: 04/30/18 05:29 Last Admin: 04/30/18 05:11 Dose: 100 mls Ondansetron HCl (Zofran) 4 mg IVP EDNOW ONE Stop: 04/30/18 02:06 Last Admin: 04/30/18 02:12 Dose: 4 mg Departure - Departure Disposition: [facility] Inpatient Acute Clinical Impression: SBO (small bowel obstruction) Condition: Fair
[2018-04-30 02:17] LABS: PLATELET COUNT 294 10^3/uL (150-400)
[2018-04-30 02:24] LABS: INR 0.92 (0.83-1.16); PROTIME(PATIENT) 12.6 SEC (12.0-15.0)
[2018-04-30] MEDS ORDERED: IOPAMIDOL (ISOVUE 370) 100 ML BTL IV ONE (02:45)
[2018-04-30] MEDS ORDERED: BUPIVACAINE 0.5% 30 ML SDV ONE (04:38)
[2018-04-30] MEDS ORDERED: cefOXitin SODIUM 2 GM in NS 100 ML IV ONE (05:00)
[2018-04-30] MEDS: HYDROmorphONE/DILAUDID 1 MG/ML INJ IVP PRN (05:06)
--- NOTE | 2018-04-30 05:06 | PDANEPAE ---
ANE History of Present Illness 67 yo male with incarcerated parastomal hernia. ANE Past Medical History - Cardiovascular History Hx Hypertension: No Hx Arrhythmias: No Hx Chest Pain: No Hx Coronary Artery / Peripheral Vascular Disease: No Hx CHF / Valvular Disease: No Hx Palpitations: No Cardiovascular History Comment: SWELLING LE - Pulmonary History Hx COPD: Yes Hx Asthma/Reactive Airway Disease: No Hx Recent Upper Respiratory Infection: No Hx Oxygen in Use at Home: No Hx Sleep Apnea: No Sleep Apnea Screening Result - Last Documented: Negative Pulmonary History Comment: SOCO TRIGGERS - Neurologic History Hx Cerebrovascular Accident: No Hx Seizures: Yes Hx Dementia: No Neurologic History Comment: remote h/o migraines. 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 HX UTI 06/2015 - Liver History Hx Hepatic Disorders: No - Neurological & Psychiatric Hx Hx Neurological and Psychiatric Disorders: No Neurological / Psychiatric History Comment: depression. homeless - Cancer History Hx Cancer: No - Congenital Disorder History Hx Congenital Disorders: No - GI History Hx Gastrointestinal Disorders: No - Other Health History Other Health History: HEARING LOSS. CHRONIC PAIN/ WEAKNESS CHERISE KNEES, L HIP. OA - Chronic Pain History Chronic Pain: No - Surgical History Prior Surgeries: R ELBOW ~2006. APPENDECTOMY 1966 ANE Review of Systems Review of Systems: - Systems Gastrointestinal: Reports: abdominal pain ANE Patient History - Allergies Allergies/Adverse Reactions: Penicillins Allergy (Verified 04/30/18 02:10) - Home Medications Home Medications: DULoxetine [Cymbalta 30 MG (*)] 30 mg PO HS 04/30/18 [Last Taken Unknown] - NPO status NPO Since - Liquids (Date): 04/29/18 NPO Since - Liquids (Time): 22:00 NPO Since - Solids (Date): 04/29/18 NPO Since - Solids (Time): 20:00 - Anes Hx Anes Hx: no prior problems - Smoking Hx Smoking Status: Current some day smoker (pt does not use tobacco, smokes occ meth and MJ) Marijuana use: Yes - Alcohol Use Alcohol Use: Sober (h/o abuse) - Family Anes Hx Family Hx Anesthesia Complications: Pt's mom was slow to wake up. Pt cannot remember details, but believes that she was in the ICU after a surgery because she did not wake up quickly. ANE Labs/Vital Signs - Labs Result Diagrams: 04/30/18 02:00 04/30/18 02:00 - Vital Signs Blood Pressure: 137/87 Heart Rate: 77 Respiratory Rate: 18 O2 Sat (%): 96 Height: 185.42 cm Weight: 99.79 kg ANE Physical Exam - Airway Neck exam: FROM Mallampati Score: Class 2 Mouth exam: poor dentition (missing many teeth) - Pulmonary Pulmonary: reduced air movement, rhonchi - Cardiovascular Cardiovascular: regular rate and rhythym - ASA Status ASA Status: III, E ANE Anesthesia Plan Anesthesia Plan: general endotracheal anesthesia
[2018-04-30] MEDS: LR 1,000 ML IV SCH (05:12)
[2018-04-30] MEDS ORDERED: ROCURONIUM 50 MG/5 ML VIAL ONE (05:43)
[2018-04-30] MEDS ORDERED: LIDOCAINE 2% 5 ML SDV ONE (05:43)
[2018-04-30] MEDS ORDERED: fentaNYL 100 MCG/2 ML INJ ONE ×2 (05:43)
[2018-04-30] MEDS ORDERED: PROPOFOL/EMULSION 500 MG/50 ML BOTTLE IV ONE (05:43)
[2018-04-30] MEDS ORDERED: DEXAMETHASONE 4 MG/ML VIAL ONE (05:43)
[2018-04-30] MEDS ORDERED: ePHEDrine SULFATE 25 MG/5 ML SYR ONE (06:38)
[2018-04-30] MEDS ORDERED: PHENYLEPHRINE HCL 100 MCG/ML SYR ONE (06:38)
[2018-04-30] MEDS ORDERED: ONDANSETRON 4 MG/2 ML VIAL ONE (07:13)
[2018-04-30] MEDS ORDERED: SUGAMMADEX SODIUM 200 MG/2 ML VIAL IVP ONE (07:17)
--- NOTE | 2018-04-30 07:34 | POSTANESTH ---
Post Anesthetic Evaluation Cardiovascular Status: Normal, Stable Respiratory Status: Normal, Stable Level of Consciousness/Mental Status: Can Participate in Eval, Mildly Sleepy, Arousable Pain Control: Adequate, Prn Tx Ordered Nausea/Vomiting Control: Adequate, Prn Tx Ordered Complications Possibly Related to Anesthesia: None Noted
--- NOTE | 2018-04-30 08:47 | POSTOPPROG ---
Post Op Note Date of Operation: 04/30/18 Surgeon: Jimmy Garrett Anesthesiologist: ALAS Anesthesia: GET(General Endotracheal) Pre-op Diagnosis: INCARCERATED RECURRENT PARASTOMAL HERNIA Post-op Diagnosis: SAME Indication: PAIN Procedure: OPEN REPAIR OF INCARCERATED PARASTOMAL HERNIA WITH ENTERORHAPHY Findings: VIABLE SMALL BOWEL/ 5 CM DEFECT Inf/Abcess present in the surg proc area at time of surgery?: Yes Depth: Organ Space EBL: Minimal Complications: NONE Specimen(s): HERNIA SAC
--- NOTE | 2018-04-30 08:56 | PDGENHP ---
History & Physical Chief Complaint: ABDOMINAL PAIN History of Present Illness: 67-YEAR-OLD MALE WITH RECURRENT PARASTOMAL HERNIA AND SMALL-BOWEL OBSTRUCTION SECONDARY TO THE HERNIA. ADMIT FOR SURGERY. RISKS AND OPTIONS FULLY DISCUSSED. CT SCAN CONFIRMS THE PRESENCE OF BOWEL IN THE PARASTOMAL HERNIA. HE HAD A PREVIOUS PARASTOMAL HERNIA REPAIR URINE HALF AGO. HE HAS NOT BEEN VOMITING OR FEBRILE THE PAIN IS ONLY BEEN PRESENT FOR 1 DAY Pertinent Past, Social, Family History: PAST MEDICAL HISTORY: BLADDER CANCER, COPD, HYPERTENSION. PAST SURGERY: APPENDECTOMY, INGUINAL HERNIA, PARASTOMAL HERNIA, RADICAL CYSTECTOMY WITH URINARY STOMA. REVIEW OF SYSTEMS NEGATIVE ON A FULL 10 POINT REVIEW EXCEPT RELATED HPI. ALLERGIES PENICILLIN. MEDICINES CYMBALTA. SOCIAL HISTORY POSITIVE TOBACCO USE, HOMELESS SLEEPING AT THE RESIDENTIAL. FAMILY HISTORY NONCONTRIBUTORY Relevant Physical Exam: GENERAL ALERT REASONABLY HEALTHY 67-YEAR-OLD MALE WHO IS IN SOME DISCOMFORT. HEENT NONICTERIC, PERRLA, VERY POOR DENTITION, NO ADENOPATHY. NECK SUPPLE FULL RANGE OF MOTION NO THYROMEGALY. CHEST CLEAR AND SYMMETRIC. COR REGULAR RHYTHM WITHOUT MURMURS. ABDOMEN SOFT DISTENDED POSITIVE BOWEL SOUNDS PARTIALLY REDUCIBLE PARASTOMAL HERNIA WITH URINARY STOMA IN THE RIGHT LOWER QUADRANT. EXTREMITIES FULL RANGE OF MOTION FULL PULSES. NEURO EXAM PHYSIOLOGIC AND SYMMETRIC. PSYCH EXAM ALERT ORIENTED AND COOPERATIVE Cardiorespiratory Assessment: IMPRESSION: SMALL-BOWEL OBSTRUCTION SECONDARY TO PARASTOMAL RECURRENT HERNIA. PLAN IS OPEN SURGICAL REPAIR. RISKS AND OPTIONS FULLY DISCUSSED
[2018-04-30] MEDS ORDERED: D5W 1/2 NS W/ 20 KCl/L 1,000 ML IV SCH (09:00)
--- NOTE | 2018-04-30 10:20 | SOAPPROG ---
SOAP Progress Note Assessment/Plan: Assessment/Plan: 67 Y M s/p incarcerated parastomal hernia repair, POD#0. Post op check. Alert but confused. Just getting to room from PACU. AFVSS. Wounds well dressed. Clear liquids. Continue routine post op care. Dispo: pending. Apparently is sleeping at the long term. Could be a difficult discharge. 04/30/18 10:19 Objective: Vital Signs Temp Pulse Resp BP Pulse Ox 36.1 C 80 16 111/68 94 04/30/18 09:40 04/30/18 09:40 04/30/18 09:40 04/30/18 09:40 04/30/18 09:40 04/29/18 04/30/18 05/01/18 05:59 05:59 05:59 Intake Total 1000 1500 Output Total 15 Balance 1000 1485 PT 12.6 SEC (12.0-15.0) 04/30/18 02:00 INR 0.92 (0.83-1.16) 04/30/18 02:00 ICD10 Worksheet Patient Problems: Problems Problem Status Onset SBO (small bowel obstruction) Acute Abdominal pain Acute Bladder cancer Acute Edema Acute Gross hematuria Acute Hydronephrosis, left Acute MRSA (methicillin resistant Staphylococcus aureus) Acute ~09/17/16 Sepsis Acute Shortness of breath Acute Syncope Acute Urinary tract infection Acute
[2018-04-30] MEDS: OXYCODONE/APAP 5/325 TAB PO PRN ×2 (12:22→19:58)
[2018-04-30] MEDS: cefOXitin SODIUM 1 GM in NS 50 ML IV SCH ×2 (12:57→17:47)
--- NOTE | 2018-04-30 14:59 | ASMTCMCOM ---
CM Note CM Note Notes: Issa, 67 yo M presents with small bowel obstruction and under went surgery. Pt has a urostomy bag, has history of bladder cancer. Has frequent visits in ED/hospital. CM reviewed chart and conferred with RN. [facility] from [facility]. He reports his son is in a "healtcare facility" but reports family members say that he is in alf. Cm tried to contact him from number in chart and his phone is disconnected. ([place] [phone]). Pt reports his [employer] Professional, Angie Olea is very helpful. CM reviewed charts and found numbers for Paz Blake ([facility] counselor [phone]), CM left message requesting callback. CM also left message for ramesh Melara's sandy RN ([phone]) requesting call back. Pt reports he wants to go to a SNF in [place]. According to records, pt has been denied to a number of places in [place] and was last discharged to [facility] in [place] in August. CM will collaborate with treatment team to develop discharge plan and continue to work with collaterals. CM to follow. Plan: SNF Date Signed: 04/30/2018 02:58 PM Electronically Signed By:BOUCHRA Foy
--- NOTE | 2018-04-30 15:12 | PDMN ---
Medical Necessity Medical necessity: Pt meets IP criteria as of 04/30/2018 per and MCG M-210 ( Intestinal Obstruction); est los > 2 mn for ongoing tx and management of small bowel obstruction secondary to parastomal hernia; requiring surgical intervention.
[2018-05-01] MEDS: cefOXitin SODIUM 1 GM in NS 50 ML IV SCH ×4 (00:19→18:08)
[2018-05-01] MEDS: OXYCODONE/APAP 5/325 TAB PO PRN ×2 (00:19→05:07)
[2018-05-01] MEDS: LR 1,000 ML IV SCH (00:29)
[2018-05-01 05:40] LABS: PLATELET COUNT 248 10^3/uL (150-400)
[2018-05-01] MEDS ORDERED: HYDROCODONE/APAP 5/325 TAB PO PRN (07:58)
[2018-05-01] MEDS: KETOROLAC 15 MG/1 ML SDV IVP SCH ×3 (08:16→18:08)
--- NOTE | 2018-05-01 08:46 | SOAPPROG ---
SOAP Progress Note Assessment/Plan: Assessment/Plan: 67 Y M s/p incarcerated parastomal hernia repair, POD#1. Changed PO narcotics to norco--he says this works best for him. Started toradol. He does not recall being on meloxicam. Also restarting cymbalta. Routine urostomy care. Incision is under wafer. Regular diet. Dispo: Could d/c once pain in control. He has been sleeping at the custodial. Will need case management assistance for safe discharge. Thanks. S: c/o pain. per nurses, slept well had had large BM. O: Alert, nad ctab rrr abd soft, +BS, urostomy pink, inc under wafer (did not view, but per RN, looks good) 05/01/18 08:41 Objective: Vital Signs Temp Pulse Resp BP Pulse Ox 36.7 C 75 20 110/62 92 05/01/18 07:53 05/01/18 07:53 05/01/18 07:53 05/01/18 07:53 05/01/18 07:53 Laboratory Results 05/01/18 04:30 05/01/18 04:30 04/30/18 05/01/18 05/02/18 05:59 05:59 05:59 Intake Total 1000 3783 Output Total 2340 Balance 1000 1443 PT 12.6 SEC (12.0-15.0) 04/30/18 02:00 INR 0.92 (0.83-1.16) 04/30/18 02:00 ICD10 Worksheet Patient Problems: Problems Problem Status Onset SBO (small bowel obstruction) Acute Abdominal pain Acute Bladder cancer Acute Edema Acute Gross hematuria Acute Hydronephrosis, left Acute MRSA (methicillin resistant Staphylococcus aureus) Acute ~09/17/16 Sepsis Acute Shortness of breath Acute Syncope Acute Urinary tract infection Acute
[2018-05-01] MEDS ORDERED: NON-FORMULARY NEW DRUG (Meloxicam [Meloxicam] 7.5 MG) PO SCH (09:00)
[2018-05-01] MEDS: DULoxetine 30 MG CAP PO SCH (09:50)
[2018-05-01] MEDS: LISINOPRIL 10 MG TAB PO SCH (09:50)
[2018-05-01] MEDS: ONDANSETRON 4 MG/2 ML VIAL IVP PRN ×2 (12:25→21:00)
[2018-05-02] MEDS: cefOXitin SODIUM 1 GM in NS 50 ML IV SCH ×4 (00:10→18:20)
[2018-05-02] MEDS: KETOROLAC 15 MG/1 ML SDV IVP SCH ×4 (00:10→18:21)
[2018-05-02] MEDS: LR 1,000 ML IV SCH (00:11)
[2018-05-02] MEDS: DULoxetine 30 MG CAP PO SCH ×2 (00:16→09:41)
[2018-05-02] MEDS: ONDANSETRON 4 MG/2 ML VIAL IVP PRN ×3 (03:08→21:54)
[2018-05-02] MEDS ORDERED: PROMETHAZINE HCL 25 MG/ML INJ IV PRN (04:52)
[2018-05-02] MEDS ORDERED: D5W 1/2 NS 1,000 ML IV SCH (05:00)
--- NOTE | 2018-05-02 05:12 | GOP ---
DATE OF OPERATION: 04/30/2018 SURGEON: Jimmy Garrett MD LENS GRINDER: There was no preschool assistant. ANESTHESIOLOGIST: Dr. Allegra Gerardo PREOPERATIVE DIAGNOSIS: Incarcerated peristomal hernia. POSTOPERATIVE DIAGNOSIS: Incarcerated peristomal hernia. PROCEDURE PERFORMED: Open repair of incarcerated peristomal hernia with enterorrhaphy. FINDINGS: Patient was found to have incarcerated small bowel and a peristomal hernia measuring appro ximately 4 cm in diameter. The bowel was, otherwise, viable. One small enterotomy taking the previo us anastomosis down off the anterior abdominal wall. DESCRIPTION OF PROCEDURE: The patient was taken to the operating room, where he received satisfactor y general endotracheal anesthesia, placed in the supine position, prepped and draped in usual sterile fashion. Curvilinear incision was made approximately an inch lateral to the urinary stoma and dissection darryl ed carefully down through the subcutaneous tissue. The hernia sac was identified. It was dissected free from surrounding subcutaneous tissue. It was dissected down to the fascial level. At that poin t, the sac was opened, its contents were reduced and the sac was actually dissected free and exposed. Subfascial tunnel was developed and the fascial wall were cleared of all adherent bowel loops. The urinary stoma was well identified and spared from injury. The tract was marked with the Hegar dilat or, as well as a small Schwab balloon. After delineating the hernia defect in the anatomy, the fascia was approximated with interrupted #1 PDS [id number] sutures, subcu was then closed with a runni ng Vicryl suture, and the skin with a 4-0 Monocryl subcuticular stitch, which was then covered with s ome Dermabond. The stoma was redressed. He tolerated the procedure well. He was still making good urine. There were no complications. Taken care room in good condition. /[id number]/MODL
[2018-05-02 05:19] LABS: PLATELET COUNT 274 10^3/uL (150-400)
[2018-05-02] MEDS ORDERED: IOPAMIDOL (ISOVUE 370) 100 ML BTL IV ONE (08:01)
--- NOTE | 2018-05-02 09:22 | ASMTCMCOM ---
CM Note CM Note Notes: PT/OT recommending SNF. CM completed PASSAR and submit referrals to various SNFs. Pt signed consent for CM to speak with counselor at [facility]. CM awaiting call back. Plan: SNF Date Signed: 05/02/2018 09:21 AM Electronically Signed By:BOUCHRA Foy
[2018-05-02] MEDS: LISINOPRIL 10 MG TAB PO SCH (09:41)
[2018-05-02] MEDS: D5W 1/2 NS W/ 20 KCl/L 1,000 ML IV SCH ×2 (12:46→22:07)
[2018-05-02] MEDS: HYDROmorphONE/DILAUDID 1 MG/ML INJ IVP PRN (21:54)
[2018-05-03] MEDS: cefOXitin SODIUM 1 GM in NS 50 ML IV SCH ×4 (00:24→19:43)
[2018-05-03] MEDS: DULoxetine 30 MG CAP PO SCH ×3 (00:24→20:21)
[2018-05-03] MEDS: KETOROLAC 15 MG/1 ML SDV IVP SCH ×4 (00:24→19:44)
[2018-05-03 04:39] LABS: PLATELET COUNT 272 10^3/uL (150-400)
[2018-05-03] MEDS: D5W 1/2 NS W/ 20 KCl/L 1,000 ML IV SCH ×2 (05:46→16:23)
--- NOTE | 2018-05-03 09:18 | SOAPPROG ---
SOAP Progress Note Assessment/Plan: Assessment: 67 Y M s/p incarcerated parastomal hernia repair, POD#3 Now with possible ileus vs. SBO. Abdominal xray ordered for this am. S: Feeling better. Had loose BM last night and is passing gas. Denies nausea. Pain controlled with toradol O: Alert Afebrile VSS rrr no increased wob abdomen: soft, slightly distended, rare BS, urostomy with appliance in place, incision cdi Plan: Pt appears to be improving. Will continue NPO and NG tube for now. Originally thought pt may need surgery for SBO, but will hold off for now given clinical improvement. 05/03/18 09:15 Objective: Vital Signs Temp Pulse Resp BP Pulse Ox 36.6 C 75 16 100/67 83 L 05/03/18 08:00 05/03/18 08:00 05/03/18 08:00 05/03/18 08:00 05/03/18 08:00 Laboratory Results 05/03/18 03:58 05/03/18 03:58 05/02/18 05/03/18 05/04/18 05:59 05:59 05:59 Intake Total 1350 3473 Output Total 2450 6600 Balance -1100 -3127 PT 12.6 SEC (12.0-15.0) 04/30/18 02:00 INR 0.92 (0.83-1.16) 04/30/18 02:00 ICD10 Worksheet Patient Problems: Problems Problem Status Onset SBO (small bowel obstruction) Acute Abdominal pain Acute Bladder cancer Acute Edema Acute Gross hematuria Acute Hydronephrosis, left Acute MRSA (methicillin resistant Staphylococcus aureus) Acute ~09/17/16 Sepsis Acute Shortness of breath Acute Syncope Acute Urinary tract infection Acute
[2018-05-03] MEDS: LISINOPRIL 10 MG TAB PO SCH (10:16)
--- NOTE | 2018-05-03 17:00 | ASMTCMCOM ---
CM Note CM Note Notes: Pt has been accepted to [facility] for short term rehab and has agreed to go, however, pt has refused therapies and they have not been able to make SNF recommendations. LTC Medicaid application and [id number] form also initiated. [employer] emailed to begin application. [facility] has 48 business hours to evaluate pt for LTC, however pt could go to [facility] before this occurs under medicare, pending PT/OT evaluations. CM communicated this to pt and encouraged participation in therapies. [facility] updated with [facility]SR and [id number] via fax and phone.CM to follow. D/C Plan: [facility] SNF to LTC Date Signed: 05/03/2018 04:59 PM Electronically Signed By:Roxana Robles
[2018-05-04] MEDS: HYDROmorphONE/DILAUDID 1 MG/ML INJ IVP PRN (00:14)
[2018-05-04] MEDS: D5W 1/2 NS W/ 20 KCl/L 1,000 ML IV SCH (00:15)
[2018-05-04] MEDS: KETOROLAC 15 MG/1 ML SDV IVP SCH ×6 (00:23→23:04)
[2018-05-04] MEDS: LORazepam 2 MG/ML INJ IVP PRN (00:40)
[2018-05-04] MEDS: cefOXitin SODIUM 1 GM in NS 50 ML IV SCH ×2 (00:40→06:18)
--- NOTE | 2018-05-04 09:58 | SOAPPROG ---
SOAP Progress Note Assessment/Plan: Assessment: 67 Y M s/p incarcerated parastomal hernia repair, POD#4 Now with possible ileus vs. SBO. Had a tough night last night - very confused, pulled out NG. Gave 1 dose Ativan I reviewed his chart in [facility] and also has COPD, heart failure and paroxysmal Afib. Followed by Dr. Arriaza. Due to confusion and co-morbidities, I asked hospitalists to co-manage I reviewed his MAR and don't see over use of narcotics. Per [facility] no use of alcohol although I query why he is so confused. S: Very confused. Does not remember pulling NG and states was begging to have it put back in. Does not know that he is in the hospital or that he had surgery. States has been looking for us for 2 days. Wants to eat. States passing gas but this seems unreliable O: Alert, sitting on edge of bed, wont lie down even when re-directed Afebrile VSS CTAB Regular rate Abdomen with distension but soft. BS hypoactive Incision cdi. Urostomy with appliance in place 05/03/18 09:15 Plan: 05/04/18 09:51 05/04/18 10:02 05/04/18 10:05 Objective: Vital Signs Temp Pulse Resp BP Pulse Ox 36.8 C 78 18 123/68 H 97 05/04/18 00:00 05/04/18 08:50 05/04/18 08:50 05/04/18 00:00 05/04/18 08:50 Laboratory Results 05/03/18 03:58 05/03/18 03:58 05/03/18 05/04/18 05/05/18 05:59 05:59 05:59 Intake Total 3473 2686 Output Total 6600 1250 Balance -3127 1436 PT 12.6 SEC (12.0-15.0) 04/30/18 02:00 INR 0.92 (0.83-1.16) 04/30/18 02:00 ICD10 Worksheet Patient Problems: Problems Problem Status Onset SBO (small bowel obstruction) Acute Abdominal pain Acute Bladder cancer Acute Edema Acute Gross hematuria Acute Hydronephrosis, left Acute MRSA (methicillin resistant Staphylococcus aureus) Acute ~09/17/16 Sepsis Acute Shortness of breath Acute Syncope Acute Urinary tract infection Acute
[2018-05-04] MEDS: DULoxetine 30 MG CAP PO SCH ×2 (11:06→21:24)
[2018-05-04] MEDS: LISINOPRIL 10 MG TAB PO SCH (11:09)
--- NOTE | 2018-05-04 14:49 | GCON ---
INTERNAL MEDICINE CONSULTATION DATE OF CONSULTATION: 05/04/2018 REASON FOR CONSULTATION: Medical opinion regarding delirium. HISTORY: Issa is a 67-year-old male admitted on April 30. He went to surgery on May [address] Garrett for an incarcerated peristomal hernia. He has a history of bladder cancer status post radical cystectomy with a urinary stoma. He was noted by nursing to have some baseline forgetfulness since admission. He would often need rem inders on simple tasks. Last night, however, he became acutely more delirious and confused, would no t persist into today. Postoperatively, he has developed a partial small bowel obstruction versus ile us and had an NG tube in place. Last night, he was found in the [place] agitated. He had pulled out hi s NG and his IV. The patient is now lying comfortably in bed and is cooperative. He complains of so me postoperative pain. He says he did pass some gas and had a bowel movement yesterday. He has had no nausea and vomiting today. The NG tube is due for replacement. He is otherwise without complaint s. PAST MEDICAL HISTORY: 1. Recurrent small bowel obstruction secondary to parastomal hernia. 2. Bladder cancer status post radical cystectomy with urinary stoma. 3. COPD. 4. Hypertension. 5. Atrial fibrillation. PAST SURGICAL HISTORY: Appendectomy. MEDICATIONS: Please see computerized record for full details. ALLERGIES: No known drug allergies. SOCIAL HISTORY: He denies a significant smoking history. He denies any current alcohol use. Review of the chart reveals he did abuse meth and alcohol in the past, but none recently. He is currently homeless. REVIEW OF SYSTEMS: Complete review of systems obtained. Review of systems negative regarding consti tutional, HEENT, GI, pulmonary, cardiovascular, , hematology, skin, muscle, endocrine, psych, excep t for positives and negatives as noted under HPI. FAMILY HISTORY: Reviewed and noncontributory to presenting complaint. PHYSICAL EXAMINATION: GENERAL: Well-developed, well-nourished male, in no acute distress. VITAL SI GNS: Temperature 36.8, pulse 78, blood pressure 123/68, saturating 93% on 3 L. He does desaturate t o 83% on room air. Earlier in this hospitalization, his oxygen at one point got as bad as 90% on 6 L . EYES: Normal conjunctivae. Pupils equal and react to light. ENT: Normal ears and nose. Hearin g intact. Normal teeth. Oropharynx moist. NECK: Trachea midline. No thyromegaly. CHEST: Normal effort. Lungs are clear to auscultation bilaterally. CARDIOVASCULAR SYSTEM: Regular rate and rhyt hm. No murmur. No lower extremity edema. ABDOMEN: Soft, nontender. No hepatosplenomegaly. SKIN: Warm, dry, intact without rash. MUSCULOSKELETAL: No cyanosis or clubbing. Strength 5/5, upper an d lower extremities. NEUROLOGIC: Cranial nerves intact. Normal sensation to light touch. PSYCH SESSMENT: He is awake, alert, cooperative, answering simple questions, but flat affect. Poor memory . Poor judgment and insight. Slow to respond. LABORATORY DATA: White count 5.16, hematocrit 34.1, platelets 272, sodium 141, potassium 4.3, chlori de 104, bicarb 32, BUN 37, creatinine 0.9, glucose 117. Troponin is negative. UA shows 50-[address] scan of the abdomen and pelvis shows obstruction versus ileus. MEDICAL RECORD REVIEW: He has extensive previous hospitalizations here. Last hospitalization was in August 2017 with sepsis due to urinary tract infection. ASSESSMENT/PLAN: 1. Metabolic encephalopathy. He does appear to have some baseline cognitive dysfunction, however, l ast evening got acutely much more confused with agitation. I think this is a result of his poor medi manpreet condition related to his persistent small-bowel obstruction and respiratory failure, and I antici mcnally metabolic encephalopathy will improve as his medical condition improves. 2. Incarcerated peristomal hernia. Postoperative day #3, status post surgical repair with Dr. Garrett . 3. Postoperative small bowel obstruction versus ileus. He pulled his NG tube last night and it is d ue to be replaced. 4. Bladder cancer with urostomy. Urinalysis is positive, but it is likely chronically colonized and I doubt urinary tract infection. 5. Acute respiratory failure. Saturations as bad as 90% on 6 L earlier in this hospitalization. He still continues to desaturate significantly when he pulls off his oxygen. We will check a chest x-r ay. Thank you very much for this consultation. Internal Medicine will continue to follow. /[id number]/MODL
[2018-05-04] MEDS: PIPERACILLIN/TAZO 4.5 GM/DEX 100 ML IV SCH ×2 (19:00→23:03)
[2018-05-05] MEDS: LORazepam 2 MG/ML INJ IVP PRN ×2 (00:55→06:01)
[2018-05-05] MEDS: HYDROmorphONE/DILAUDID 1 MG/ML INJ IVP PRN ×2 (01:47→06:01)
[2018-05-05] MEDS: D5W 1/2 NS W/ 20 KCl/L 1,000 ML IV SCH (03:32)
[2018-05-05] MEDS: PIPERACILLIN/TAZO 4.5 GM/DEX 100 ML IV SCH ×4 (04:37→23:15)
[2018-05-05] MEDS: KETOROLAC 15 MG/1 ML SDV IVP SCH ×4 (04:37→23:15)
[2018-05-05 05:15] LABS: PLATELET COUNT 252 10^3/uL (150-400)
[2018-05-05] MEDS: LISINOPRIL 10 MG TAB PO SCH (10:27)
[2018-05-05] MEDS: DULoxetine 30 MG CAP PO SCH ×2 (10:27→20:47)
--- NOTE | 2018-05-05 11:22 | SOAPPROG ---
SOAP Progress Note Assessment/Plan: Assessment: 67 Y M s/p incarcerated parastomal hernia repair, POD#5 Very difficult to see if return of bowel function NG output Decreased significantly. DC NG Will start clears and go very slow Still with encephalopathy - pulled out IV again today Now with pleural effusion and pneumonia B12 deficiency Appreciate hospitalists I reviewed his chart in [place] and also has COPD, heart failure and paroxysmal Afib. Followed by Dr. Arriaza. S: Continued confusion. Pulled IV out this am. Wants to eat. O: Alert, sitting in chair. Staff cleaning up blood from where he removed his IV Afebrile VSS CTAB Regular rate Abdomen with distension but soft. Seems less distended than yesterday. BS present Incision cdi. Urostomy with appliance in place 05/03/18 09:15 Plan: 05/04/18 09:51 05/04/18 10:02 05/04/18 10:05 05/05/18 11:09 Objective: Vital Signs Temp Pulse Resp BP Pulse Ox 36.4 C 76 14 135/84 H 96 05/05/18 08:28 05/05/18 08:28 05/05/18 08:28 05/05/18 08:28 05/05/18 08:28 Laboratory Results 05/05/18 04:44 05/05/18 04:44 05/04/18 05/05/18 05/06/18 05:59 05:59 05:59 Intake Total 2686 1313 1538 Output Total 1250 1350 Balance 1436 -37 1538 PT 12.6 SEC (12.0-15.0) 04/30/18 02:00 INR 0.92 (0.83-1.16) 04/30/18 02:00 ICD10 Worksheet Patient Problems: Problems Problem Status Onset SBO (small bowel obstruction) Acute Abdominal pain Acute Bladder cancer Acute Edema Acute Gross hematuria Acute Hydronephrosis, left Acute MRSA (methicillin resistant Staphylococcus aureus) Acute ~09/17/16 Sepsis Acute Shortness of breath Acute Syncope Acute Urinary tract infection Acute
[2018-05-05] MEDS: ENOXAPARIN 40 MG/0.4 ML SYR SC SCH (15:21)
[2018-05-05] MEDS ORDERED: PROMETHAZINE HCL 25 MG/ML INJ IV PRN (15:40)
--- NOTE | 2018-05-05 15:44 | HOSPPROG ---
Hospitalist Progress Note Assessment/Plan: 67 yo M w postop encephalopathy encephalopathy: acute doubt etoh withdrawal as not tachy lytes and labs ok reduce dose of phenergan limit ativan toxic metabolic etiology parastomal hernia: s/p repair prop: lmwh pain: prn narcotics dispo: inpt Subjective: case d/w dr louise. asking to eat. perseverating Objective: Vital Signs Temp Pulse Resp BP Pulse Ox 36.8 C 77 18 152/100 H 98 05/05/18 15:33 05/05/18 15:33 05/05/18 15:33 05/05/18 15:33 05/05/18 15:33 Laboratory Results 05/05/18 04:44 05/05/18 04:44 05/04/18 05/05/18 05/06/18 05:59 05:59 05:59 Intake Total 2686 1313 1538 Output Total 1250 1350 Balance 1436 -37 1538 PT 12.6 SEC (12.0-15.0) 04/30/18 02:00 INR 0.92 (0.83-1.16) 04/30/18 02:00 - Physical Exam Constitutional: no apparent distress, appears nourished Eyes: PERRL, anicteric sclera Ears, Nose, Mouth, Throat: moist mucous membranes, hearing normal, other (NGT) Cardiovascular: regular rate and rhythym, no murmur, rub, or gallop Respiratory: no respiratory distress, no rales or rhonchi Gastrointestinal: normoactive bowel sounds, distension, No guarding, No rebound Genitourinary: no bladder fullness, other (phillips in urostomy) Skin: warm, normal color Musculoskeletal: full muscle strength Neurologic: AAOx3 ICD10 Worksheet Patient Problems: Problems Problem Status Onset SBO (small bowel obstruction) Acute Abdominal pain Acute Bladder cancer Acute Edema Acute Gross hematuria Acute Hydronephrosis, left Acute MRSA (methicillin resistant Staphylococcus aureus) Acute ~09/17/16 Sepsis Acute Shortness of breath Acute Syncope Acute Urinary tract infection Acute
[2018-05-06] MEDS ORDERED: OLANZapine 5 MG TAB PO ONE (03:12)
[2018-05-06] MEDS: KETOROLAC 15 MG/1 ML SDV IVP SCH (05:54)
[2018-05-06] MEDS: PIPERACILLIN/TAZO 4.5 GM/DEX 100 ML IV SCH ×3 (05:54→18:08)
[2018-05-06] MEDS: ENOXAPARIN 40 MG/0.4 ML SYR SC SCH (09:00)
--- NOTE | 2018-05-06 10:07 | SOAPPROG ---
SOAP Progress Note Assessment/Plan: Assessment/Plan: 67 Y M s/p incarcerated parastomal hernia repair, POD#6. Hx COPD, CHF, paroxysmal afib. NG in place, has been clamped for days per RN, but now patient refusing removal 2/2 fear of it needing to be replaced. Still recommending removal. Then likely advance to regular diet. Encephalopathy. Appreciate hospitalist input and care. Labs ok. Limiting use of narcotics/benzo's/phenergan. PNA, pleural effusion. On Zosyn. Seen and examined with Dr. Casillas. Will need to return later today when he is more awake for better exam. Dispo: pending improved mental status. Patient was sleeping at the nursing home prior to admission. S: +BM per sitter. Couldn't fall asleep until 7:45 this am per sitter. Now sleeping. Not cooperative with exam. Mutters some words. Per sitter and nurse, asked questions last night about where he was, what he was doing here, what did he do yesterday.... O: sleeping, arousable but refusing to awaken and won't move from position. Regular rate Abdomen +BS Urostomy with appliance in place, clear yellow urine 05/06/18 10:11 Objective: Vital Signs Temp Pulse Resp BP Pulse Ox 36.7 C 58 L 16 145/92 H 93 05/06/18 04:36 05/06/18 08:50 05/06/18 08:50 05/06/18 08:50 05/06/18 08:50 Laboratory Results 05/05/18 04:44 05/05/18 04:44 05/05/18 05/06/18 05/07/18 05:59 05:59 05:59 Intake Total 1313 1838 Output Total 1350 1500 Balance -37 338 PT 12.6 SEC (12.0-15.0) 04/30/18 02:00 INR 0.92 (0.83-1.16) 04/30/18 02:00 ICD10 Worksheet Patient Problems: Problems Problem Status Onset SBO (small bowel obstruction) Acute Abdominal pain Acute Bladder cancer Acute Edema Acute Gross hematuria Acute Hydronephrosis, left Acute MRSA (methicillin resistant Staphylococcus aureus) Acute ~09/17/16 Sepsis Acute Shortness of breath Acute Syncope Acute Urinary tract infection Acute
[2018-05-06] MEDS: D5W 1/2 NS W/ 20 KCl/L 1,000 ML IV SCH (11:28)
--- NOTE | 2018-05-06 14:14 | ASMTCMCOM ---
CM Note CM Note Notes: CM spoke with [facility] and they DENIED pt, asllscripts updated. [facility] accepted [facility]. He currently has a sitter. CM to follow as pt progresses and gets more medically stable for D/C to SNF. Plan: SNF. Pt prefers in [place]. Pt has been denied numerous facilities. Date Signed: 05/06/2018 02:13 PM Electronically Signed By:BOUCHRA Foy
[2018-05-06] MEDS: LISINOPRIL 10 MG TAB PO SCH (14:53)
[2018-05-06] MEDS: DULoxetine 30 MG CAP PO SCH ×2 (14:53→22:28)
--- NOTE | 2018-05-06 15:32 | HOSPPROG ---
Hospitalist Progress Note Assessment/Plan: 67 yo M w postop encephalopathy encephalopathy: acute toxic metabolic etiology limit ativan/phenergan improved pneumonia: HCAP zosyn day 3/ parastomal hernia: s/p repair prop: lmwh pain: prn narcotics dispo: inpt Subjective: NGT out. more alert. case d/w tasha cuevas Objective: Vital Signs Temp Pulse Resp BP Pulse Ox 36.8 C 62 16 139/98 H 93 05/06/18 14:37 05/06/18 14:37 05/06/18 14:37 05/06/18 14:37 05/06/18 14:37 Laboratory Results 05/05/18 04:44 05/05/18 04:44 05/05/18 05/06/18 05/07/18 05:59 05:59 05:59 Intake Total 1313 1838 Output Total 1350 1500 1200 Balance -37 338 -1200 PT 12.6 SEC (12.0-15.0) 04/30/18 02:00 INR 0.92 (0.83-1.16) 04/30/18 02:00 - Physical Exam Constitutional: no apparent distress, appears nourished Eyes: PERRL, anicteric sclera Ears, Nose, Mouth, Throat: moist mucous membranes, hearing normal Cardiovascular: regular rate and rhythym, no murmur, rub, or gallop Respiratory: no respiratory distress, other (crackles L base) Gastrointestinal: soft, non-tender abdomen Genitourinary: no bladder fullness, No phillips in urethra Skin: warm Musculoskeletal: full muscle strength Neurologic: AAOx3 ICD10 Worksheet Patient Problems: Problems Problem Status Onset SBO (small bowel obstruction) Acute Abdominal pain Acute Bladder cancer Acute Edema Acute Gross hematuria Acute Hydronephrosis, left Acute MRSA (methicillin resistant Staphylococcus aureus) Acute ~09/17/16 Sepsis Acute Shortness of breath Acute Syncope Acute Urinary tract infection Acute
[2018-05-06] MEDS: ACETAMINOPHEN 500 MG TAB PO PRN (15:59)
[2018-05-07] MEDS: PIPERACILLIN/TAZO 4.5 GM/DEX 100 ML IV SCH ×3 (00:38→12:13)
[2018-05-07] MEDS: ACETAMINOPHEN 500 MG TAB PO PRN (06:34)
--- NOTE | 2018-05-07 09:21 | SOAPPROG ---
SOAP Progress Note Assessment/Plan: Assessment/Plan: 67 Y M s/p incarcerated parastomal hernia repair, POD#6. Hx COPD, CHF, paroxysmal afib. NG out yesterday. regular diet today. Encephalopathy. Appreciate hospitalist input and care. Improved. PNA, pleural effusion. On Zosyn. Treatment needed on d/c? Seen and examined with Dr. Casillas. Dispo: per , approved at [facility]. D/c today or tomorrow pending medical clearance. S: hungry. no n/v/. passing gas. O: more alert, cooperative. making some jokes. ctab anteriorly Regular rate Abdomen +BS Urostomy with appliance in place, clear yellow urine, inc under appliance not directly viewed 05/07/18 09:19 Objective: Vital Signs Temp Pulse Resp BP Pulse Ox 36.7 C 66 16 125/79 H 94 05/07/18 08:00 05/07/18 08:00 05/07/18 08:00 05/07/18 08:00 05/07/18 08:00 Laboratory Results 05/05/18 04:44 05/05/18 04:44 05/06/18 05/07/18 05/08/18 05:59 05:59 05:59 Intake Total 1838 4142 Output Total 1500 3620 Balance 338 522 PT 12.6 SEC (12.0-15.0) 04/30/18 02:00 INR 0.92 (0.83-1.16) 04/30/18 02:00 ICD10 Worksheet Patient Problems: Problems Problem Status Onset SBO (small bowel obstruction) Acute Abdominal pain Acute Bladder cancer Acute Edema Acute Gross hematuria Acute Hydronephrosis, left Acute MRSA (methicillin resistant Staphylococcus aureus) Acute ~09/17/16 Sepsis Acute Shortness of breath Acute Syncope Acute Urinary tract infection Acute
--- NOTE | 2018-05-07 10:35 | PDIAF ---
- Diagnosis Diagnosis: s/p parastomal hernia repair Code Status: Full Code - Medication Management Group Home Antibiotics: Levaquin 750 mg PO daily x 3 days Discharge Medications: electronically signed and located in the Home Medication List. PICC Care - Routine: N/A - Orders Services needed: Registered Nurse, Physical Therapy, Occupational Therapy Isolation Type: None Diet Recommendation: no restrictions on diet Diet Texture: Regular Texture Diet Wound Care Instructions: No lifting >15 lbs. Routine urostomy care. Ok for incision to get wet in shower. No baths/pools. Activity/Weight Bearing Restrictions: No lifting >15 lbs. Routine urostomy care. Ok for incision to get wet in shower. No baths/pools. Additional Instructions: No lifting >15 lbs. Routine urostomy care. Ok for incision to get wet in shower. No baths/pools. - Follow Up Care Current Providers and Referrals: MAT WHEATLEY [Primary Care Provider] - As per Instructions Jimmy Garrett MD [Medical Doctor] - (1-2 weeks)
[2018-05-07] MEDS: ENOXAPARIN 40 MG/0.4 ML SYR SC SCH (10:48)
[2018-05-07] MEDS: LISINOPRIL 10 MG TAB PO SCH (12:13)
[2018-05-07] MEDS: DULoxetine 30 MG CAP PO SCH (12:13)
--- NOTE | 2018-05-07 14:44 | ASMTLACE ---
LACE Length of stay for Answers: 7-13 days current admission Acuity / Level of Answers: Yes Care: Did the patient have an inpatient admission? Comorbidities - select Answers: Any tumor (including all that apply lymphoma or leukemia) Chronic pulmonary disease Moderate or severe liver or renal disease Other Notes: HTN # of Emergency department Answers: 3-4 visits in the last 6 months Social determinants Answers: History of substance abuse (ETOH, street drugs, prescription drugs, etc.) Homelessness (street, nursing home) Mental health diagnosis (anxiety, depression, pers onality disorders, etc.) Lack of community resources and/or lack of social support (no pcp, lives alone, transportation, lupillo d) Score: 33 Date Signed: 05/07/2018 02:44 PM Electronically Signed By:BOUCHRA Foy
--- NOTE | 2018-05-07 14:44 | ASMTDCNOTE ---
Case Management Discharge Discharge Order Complete? Answers: Yes Patient to Obtain Answers: Other Notes: [facility] arranged in [facility] Transportation Arranged Answers: Other Notes: [facility] arranged Faxed Final Orders Answers: Yes Agency/Facility Transfer Answers: Yes Report Printed & Faxed to Receiving Agency Discharge Comments Notes: Pt refused to go to [place] facility and wanted to go to a facility in [place]. [facility] accepted pt and are aware that he will need senior living care. Lara from [facility] is aware and said that she has a SW that will work with him to place him in care once he completes his therapies. CM submit updated therapy notes and discharge ppwk to [facility]. CM Notified pt's workers at [facility] and [facility]. Transport scheduled by [facility] for 4pm. No other CM needs identified at this time. Date Signed: 05/07/2018 02:43 PM Electronically Signed By:BOUCHRA Foy
--- NOTE | 2018-05-07 14:53 | ASDISCHSUM ---
Discharge Information Plan Status:SNF Medically Cleared to Leave: Discharge Date: D/C Disposition:[facility] Facility [facility] D/C Disposition:[facility] Facility Projected Discharge Date:05/07/2018 11:00 AM Transportation at D/C:Wheelchair Van Discharge Delay Reason: Follow-Up Date:05/07/2018 11:00 AM Discharge Slot: Final Diagnosis: Placement Information Referral Type:*Half-Way/SNF Referral ID:[id number] Provider Name:Mikki carvajal [place] Address 1:[address] Phone Number: Address 2: Fax Number: [facility]:[place] Selection Factors: State:[place] Patient Contact Information Contact Name:ALYSSA Relationship: Address:[address] Work Phone: [facility]:[place] Alternate Phone: [facility]/Zip Code:[place] [address] Email: Financial Information Financial Class:Medicare Primary Plan Desc:MEDICARE INPATIENT Primary Plan Number:[id number] Secondary Plan Desc:MED[place] Secondary Plan Number:[id number] Assessment Information LACE LACE Length of stay for Answers: 7-13 days current admission Acuity / Level of Answers: Yes Care: Did the patient have an inpatient admission? Comorbidities - select Answers: Any tumor (including all that apply lymphoma or leukemia) Chronic pulmonary disease Moderate or severe liver or renal disease Other Notes: HTN # of Emergency department Answers: 3-4 visits in the last 6 months Social determinants Answers: History of substance abuse (ETOH, street drugs, prescription drugs, etc.) Homelessness (street, longterm) Mental health diagnosis (anxiety, depression, pers onality disorders, etc.) Lack of community resources and/or lack of social support (no pcp, lives alone, transportation, lupillo d) Score: 33 Date Signed: 05/07/2018 02:44 PM Electronically Signed By:BOUCHRA Foy [facility] CM Progress Note CM Note CM Note Notes: Issa, 67 yo M presents with small bowel obstruction and under went surgery. Pt has a urostomy bag, has history of bladder cancer. Has frequent visits in ED/hospital. CM reviewed chart and conferred with RN. Pt came from longterm. He reports his son is in a "healtcare facility" but reports family members say that he is in detention. Cm tried to contact him from number in chart and his phone is disconnected. ([place] [phone]). Pt reports his Wafer Polisher, Angie Olea is very helpful. CM reviewed charts and found numbers for Paz Ruth ([facility] counselor [phone]), CM left message requesting callback. CM also left message for ramesh Melara's sandy RN ([phone]) requesting call back. Pt reports he wants to go to a SNF in [place]. According to records, pt has been denied to a number of places in [place] and was last discharged to [facility] in [place] in August. CM will collaborate with treatment team to develop discharge plan and continue to work with collaterals. CM to follow. Plan: SNF Date Signed: 04/30/2018 02:58 PM Electronically Signed By:BOUCHRA Foy [facility] YOJANA Progress Note CM Note CM Note Notes: PT/OT recommending SNF. CM completed PASSAR and submit referrals to various SNFs. Pt signed consent for CM to speak with counselor at [facility]. CM awaiting call back. Plan: SNF Date Signed: 05/02/2018 09:21 AM Electronically Signed By:BOUCHRA Foy [facility] Progress Note CM Note CM Note Notes: Pt has been accepted to [facility] for short term rehab and has agreed to go, however, pt has refused therapies and they have not been able to make SNF recommendations. [place] Medicaid application and [id number] form also initiated. [facility] emailed to begin application. [facility] has 48 business hours to evaluate pt for LTC, however pt could go to [facility] before this occurs under medicare, pending PT/OT evaluations. CM communicated this to pt and encouraged participation in therapies. [facility] updated with PASSR and [id number] via fax and phone.CM to follow. D/C Plan: [facility] to LTC Date Signed: 05/03/2018 04:59 PM Electronically Signed By:Roxana Robles [facility] Progress Note CM Note CM Note Notes: CM spoke with [facility] and they DENIED pt, asllscripts updated. [facility] accepted pt. He currently has a sitter. CM to follow as pt progresses and gets more medically stable for D/C to SNF. Plan: SNF. Pt prefers in [place]. Pt has been denied numerous facilities. Date Signed: 05/06/2018 02:13 PM Electronically Signed By:BOUCHRA Foy Case Management Discharge Plan Note Case Management Discharge Discharge Order Complete? Answers: Yes Patient to Obtain Answers: Other Notes: [facility] arranged in [facility] Transportation Arranged Answers: Other Notes: [facility] arranged Faxed Final Orders Answers: Yes Agency/Facility Transfer Answers: Yes Report Printed & Faxed to Receiving Agency Discharge Comments Notes: Pt refused to go to [facility] and wanted to go to a facility in [place]. 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 Lara from [facility] is aware and said that she has a SW that will work with him to place him in care once he completes his therapies. CM submit updated therapy notes and discharge ppwk to [facility]. CM Notified pt's workers at [facility] and [facility]. Transport scheduled by [facility] for 4pm. No other CM needs identified at this time. Date Signed: 05/07/2018 02:43 PM Electronically Signed By:BOUCHRA Foy Intervention Information Intervention Type:*IM-Signed Date of Service:05/07/2018 12:12 PM Patient Type:Inpatient Staff Member:Bella Jay Hours: Discipline: Severity: Comment:
[2018-05-07 15:30] VITALS: BP 129/81
== END 2018-05-07 16:15 | DRG 353 ==
LOC: EDUNIT# → F1N 04:08
PROVIDERS: ADMIT Surgery; ATTEND Surgery
PROC: 0WQF0ZZ Repair Abdominal Wall, Open Approach (ICD-10-PCS; principal; 2018-04-30 05:00)
DX: K43.0 Incisional hernia with obstruction, without gangrene (principal); G93.41 Metabolic encephalopathy; J96.00 Acute respiratory failure, unspecified whether with hypoxia or hypercapnia; J18.8 Other pneumonia, unspecified organism; G47.33 Obstructive sleep apnea (adult) (pediatric); G43.909 Migraine, unspecified, not intractable, without status migrainosus; F32.9 Major depressive disorder, single episode, unspecified; G89.29 Other chronic pain; F15.90 Other stimulant use, unspecified, uncomplicated; F12.90 Cannabis use, unspecified, uncomplicated; I10 Essential (primary) hypertension; Z59.0 Homelessness; Z88.0 Allergy status to penicillin; Z93.6 Other artificial openings of urinary tract status; Z85.51 Personal history of malignant neoplasm of bladder; Z87.440 Personal history of urinary (tract) infections
CPT/HCPCS: 82607-90; 96374; 97116-GP; 97161-GP; 97165-GO; 97530-GP; J0694; J1100; J1170; J1650; J1885; J2060; J2370; J2405; J2543; J2550; J2704; J3010; Q9967